=== PATIENT | female | born 1945 | race Caucasian/White ===

== ENCOUNTER 2018-03-15 00:35 | Outpatient (CLI) | payer OTHER, SELFPAY ==
--- NOTE | 2018-03-15 15:21 | DI.DEXA_ITS ---
SYMPTOM/DIAGNOSIS: SCREENING FOR OSTEOPOROSIS IN POSTMENOPAUSAL WOMAN, Z78.0 DEXA SCAN: Routine examination. Lateral spine film shows no compression deformities. Evaluation of the left hip shows a total T score of -2.3 and a Z score of -0.5. This is consistent with osteopenia and an increased fracture risk. Evaluation of the lumbar spine shows a total T score of -3.1 and a Z score of - 0.7. This is consistent with osteoporosis and a high fracture risk. IMPRESSION: Osteoporosis in the lumbar spine.
[2018-03-15 17:54] LABS: ALT 35 U/L (12-78); AST 17 U/L (15-37); Albumin 3.6 g/dL (3.4-5.0); Alkaline Phosphatase 87 U/L (46-116); Anion Gap 7.3 mmol/L (3-11); BUN 28 mg/dL (7-18); Bilirubin, Total 0.2 mg/dL (0.2-1.0); CO2 28.7 mmol/L (21.0-32.0); CREATININE 0.84 mg/dL (0.55-1.02); Calcium 8.8 mg/dL (8.5-10.1); Chloride 105 mmol/L (98-107); Glucose 97 mg/dL (70-100); Magnesium 2.1 mg/dL (1.8-2.4); Potassium 4.4 mmol/L (3.5-5.1); Sodium 141 mmol/L (136-145); Vitamin B12 609 pg/mL (193-986)
== END 2018-03-15 00:55 ==
PROVIDERS: PCP Nurse Practitioner Family; Visit Provider Nurse Practitioner Family
DX: M81.0 Age-related osteoporosis without current pathological fracture (principal); Z78.0 Asymptomatic menopausal state; M85.88 Other specified disorders of bone density and structure, other site; R03.0 Elevated blood-pressure reading, without diagnosis of hypertension; R05 Cough; M15.4 Erosive (osteo)arthritis; R00.2 Palpitations; J30.9 Allergic rhinitis, unspecified; M79.10 Myalgia, unspecified site; K21.9 Gastro-esophageal reflux disease without esophagitis; E78.5 Hyperlipidemia, unspecified
CPT/HCPCS: 36415; 77080; 80053; 82607; 83735

== ENCOUNTER 2018-06-14 14:28 | Outpatient (CLI) | payer OTHER, SELFPAY ==
--- NOTE | 2018-06-14 15:59 | DI.RAD_ITS ---
SYMPTOM/DIAGNOSIS: THUMB PAIN LT, M79.147 LEFT HAND: There are severe degenerative changes of the interphalangeal joints of the fingers as well as severe degenerative changes at the scaphoid and multangular joints. The bones appear osteoporotic. No fracture or soft tissue mass is seen. IMPRESSION: Degenerative changes.
== END 2018-06-14 14:48 ==
PROVIDERS: PCP Nurse Practitioner Family; Visit Provider Nurse Practitioner Family
DX: M79.645 Pain in left finger(s) (principal); M19.042 Primary osteoarthritis, left hand
CPT/HCPCS: 73130

== ENCOUNTER → 2018-06-21 09:13 | Outpatient (BNVA) | payer OTHER, SELFPAY | PROVIDERS: PCP Nurse Practitioner Family; Referring Provider Nurse Practitioner Family; Visit Provider Orthopaedic Surgery | DX: M65.312 Trigger thumb, left thumb (principal); R22.32 Localized swelling, mass and lump, left upper limb | CPT/HCPCS: 99202; 99214 ==

== ENCOUNTER 2018-07-02 09:37 | Day surgery (SDC) | payer OTHER, SELFPAY ==
[2018-07-02 10:24] VITALS: BP 140/64; PULSE 85; RESP 16; TEMP 36.1; O2SAT 97
[2018-07-02] MEDS: Lidocaine 2% Multi-Dose 50 ML VIAL (13:13)
--- NOTE | 2018-07-02 13:48 | W.PM.DSUDISC ---
Discharge Plan Disposition Patient Disposition: HOME Condition: Good Discharge Details Reason For Visit: R thumb surgery Attending Provider: Chapin Jacobs Primary Care Provider: Joie Jiang Home Meds and New Rx's Prescriptions: New hydrocodone-acetaminophen 5-325 mg tablet 1 tab PO Q6H PRN (Reason: pain) Qty: 7 RF: 0 Continued ibuprofen [Advil Liqui-Gel] 200 MG capsule 200 mg PO PRN RF: 0 hydrocortisone [Anusol-HC] 30 GM cream with perineal applicator 30 gm RC Q4H PRN Qty: 1 RF: 2 omeprazole 20 MG capsule,delayed release(DR/EC) 20 mg PO DAILY RF: 0 simvastatin 20 MG tablet 20 mg PO DAILY RF: 0 Symbicort 80-4.5 mcg/actuation Hfa Aerosol Inhaler 2 puff INHALATION BID RF: 0 Discharge Instructions Additional Instructions: Elevate R hand above heart level as much as possible for next 48 hours. Keep dressings dry for 72 hours. Remove dressings after 72 hours. May then shower or bathe and get incision wet. Leave incision uncovered when it is dry and sealed. Bend and straighten R thumb 10 times/hour when awake to prevent stiffness and swelling. Follow up in 's office in 2 weeks. Stand Alone Forms: Azul West (DSU) Referrals: Chapin Jacobs MD [ [facility] STAFF PHYSICIAN] - (f/u in 2 weeks) Activity:: Activity as Tolerated Remove Dressings/Wound Care:: 72 hours Shower/Bathe:: 72 hours Diet:: As Tolerated Discharge Orders Discharge Orders: Discharge Order (Routine); Ordered 07/02/18 Ordered By: Chapin Jacobs DS: Diagnosis Discharge Diagnosis (1) Lump on finger: Status: Acute (2) Trigger thumb, left thumb: Status: Acute
--- NOTE | 2018-07-04 18:43 | ROE_ITS ---
DATE OF PROCEDURE: July 02, 2018 PREOPERATIVE DIAGNOSIS: Soft tissue mass left thumb and trigger left thumb. POSTOPERATIVE DIAGNOSIS: Same. PROCEDURE: #1. Excision of soft tissue mass, left thumb. #2. Tendon sheath incision, left thumb, for trigger thumb. SURGEON: Chapin Jacobs M.D. ANESTHESIA: Local infiltration 1% Xylocaine solution and 0.5% Marcaine with epinephrine solution. INDICATIONS: This is a 73-year-old white female who has a painful hard mass located on the ulnar neela e of her thumb. It is located at the base of the proximal phalanx of the thumb. Whenever she is gri pping something with her left hand, it is quite tender and painful. X-rays suggest that this is a ca lcific deposit. In addition, she has painful intermittent triggering of her left thumb. I recommend ed excisional biopsy of the mass and, in the same operative session, a trigger thumb release. The ri sks and complications of the procedure were explained to the patient in detail preoperatively. PROCEDURE: The patient was taken to the Operating Room on 07/02/18. She was placed supine on the ope rating table and the left hand was prepped and draped free in the usual sterile fashion. I made an i ncision in line with the proximal flexion crease of the thumb, beginning at the dorsal edge of the fi rst web space, going dorsal to the palpable mass. I then swung the incision around to the palmar asp ect until I was radial to the flexor sheath. This was done after infiltrating the skin with 1% Xyloc shelley solution. I used blunt-tipped Littler scissors to mobilize the soft tissues around the mass and excised the mass. I inadvertently cut the mass with a scalpel and inside was chalky material consis tent with calcium. I used a rongeur to remove the entire calcific mass. I then developed the incision deep over the flexor sheath of the thumb. Digital nerves were mobilize d with the Littler scissors away from the flexor sheath. I then incised the entire length of the pro ximal abhishek in the midline. The thumb flexor tendon was inspected and was uninjured. The wound was irrigated with saline solution. The wound margins were infiltrated with 0.5% Marcaine with epinephr ine solution and the skin edges were approximated with interrupted #4-0 nylon sutures. The wound was dressed with Xeroform gauze, sterile gauze 4x4s, and wrapped with a 2-inch Josefa bandage for a light compressive dressing. She was discharged to the Day Surgery Unit in good condition. The patient was discharged home from the Day Surgery Unit with instructions to bend and straighten he r left thumb 10 times an hour while awake to prevent stiffness and swelling. She is to keep her dres sings intact and dry for 72 hours. After 72 hours, she may remove her dressings, shower or bathe and get her incision wet. She may leave the incision uncovered when it is dry and sealed. She is given a prescription for breakthrough pain of hydrocodone/APAP 5 mg/325 mg, 1 tablet every 6 hours if need ed for pain not relieved by Tylenol or ibuprofen. She will follow up in my office in two weeks.
== END 2018-07-02 14:10 | disposition home or self-care (01) ==
PROVIDERS: PCP Nurse Practitioner Family; Visit Provider Orthopaedic Surgery
PROC: (CPT 26160; principal; 2018-07-02 11:30)
DX: R22.32 Localized swelling, mass and lump, left upper limb (principal); M65.312 Trigger thumb, left thumb; L94.2 Calcinosis cutis
CPT/HCPCS: 26115; 26055

== ENCOUNTER → 2018-07-18 09:07 | Outpatient (BNVA) | payer OTHER, SELFPAY | PROVIDERS: PCP Nurse Practitioner Family; Referring Provider Nurse Practitioner Family; Visit Provider Orthopaedic Surgery | DX: Z47.89 Encounter for other orthopedic aftercare (principal); M65.312 Trigger thumb, left thumb ==

== ENCOUNTER 2018-12-10 13:21 | Outpatient (REF) | payer OTHER, SELFPAY ==
[2018-12-10 21:30] LABS: Abs Immature Grans 0.02 k/cumm (0.0-0.09); Absolute Basophil Count 0.02 k/cumm (0.0-0.2); Absolute Eosinophil Count 0.23 k/cumm (0.0-0.7); Absolute Lymphocyte Count 1.85 k/cumm (1.2-3.4); Absolute Monocyte Count 0.66 k/cumm (0.11-0.7); Absolute Neutrophil Count 4.22 k/cumm (1.2-6.7); Basophils % 0.3; Eosinophils % 3.3; HCT 43.2 % (36.0-46.0); HGB 14.2 g/dL (12.0-15.5); Immature Grans % 0.3; Lymphocytes % 26.4; Mean Corp. HGB Concentration 32.9 g/dL (32.0-36.0); Mean Corpuscular Hemoglobin 29.6 pg (27.0-33.0); Mean Corpuscular Volume 90.2 fL (80-95); Mean Platelet Volume 9.9 fL (8.0-11.0); Monocytes % 9.4; Neutrophils % 60.3; Platelet Count 430 x1000/uL (130-400); RBC 4.79 m/cumm (4.00-5.20); RBC Distribution Width 13.4 % (11.7-14.6)
[2018-12-10 22:04] LABS: ALT 41 U/L (12-78); AST 24 U/L (15-37); Albumin 3.9 g/dL (3.4-5.0); Alkaline Phosphatase 91 U/L (46-116); Anion Gap 12.6 mmol/L (3-11); BUN 25 mg/dL (7-18); Bilirubin, Total 0.3 mg/dL (0.2-1.0); CO2 26.4 mmol/L (21.0-32.0); CREATININE 0.79 mg/dL (0.55-1.02); Calcium 9.3 mg/dL (8.5-10.1); Chloride 104 mmol/L (98-107); Glucose 87 mg/dL (70-100); Magnesium 2.4 mg/dL (1.8-2.4); Potassium 4.1 mmol/L (3.5-5.1); Sodium 143 mmol/L (136-145); Total Protein 7.3 g/dL (6.4-8.2)
== END 2018-12-10 13:41 ==
LOC: NCHCN 13:21
PROVIDERS: PCP Nurse Practitioner Family; Visit Provider Specialist/Technologist Athletic Trainer
DX: R42 Dizziness and giddiness (principal)
CPT/HCPCS: 80053; 83735; 84439; 84443; 85025

== ENCOUNTER 2018-12-14 02:16 | Outpatient (CLI) | payer OTHER, SELFPAY ==
--- NOTE | 2018-12-14 14:00 | DI.US_ITS ---
SYMPTOMS/DIAGNOSIS: DIZZY SPELLS, R42 CAROTID ULTRASOUND: Routine examination was performed. Mild to moderate calcific plaque is seen on the right in the carotid bulb. No hemodynamically significant velocity elevations are seen on the right. The right vertebral artery is antegrade. On the left there is mild to moderate calcific plaque seen in the bulb. No hemodynamically significant velocity elevations are present on the left. The left vertebral artery is antegrade. IMPRESSION: No hemodynamically significant cervical carotid artery stenosis.
== END 2018-12-14 02:36 ==
PROVIDERS: PCP Nurse Practitioner Family; Visit Provider Specialist/Technologist Athletic Trainer
DX: R42 Dizziness and giddiness (principal)
CPT/HCPCS: 93880

== ENCOUNTER 2019-01-04 01:05 | Outpatient (CLI) | payer OTHER, SELFPAY ==
--- NOTE | 2019-01-04 13:56 | MERGE_ITS ---
*[facility]* *[facility]* [address] [place] [address] Date of study: 01/04/2019 Transthoracic Echocardiography M-mode, complete 2D, complete spectral Doppler, and color Doppler *STUDY CONCLUSIONS* Impressions: Low normal LVEF, aortic valve sclerosis with very mild aortic stenosis. Normal atrial size. Summary: 1. Left ventricle: The cavity size was normal. Wall thickness was at the upper limits of normal. Systolic function was at the lower limits of normal. The estimated ejection fraction was 50-55%. Wall motion was normal; there were no regional wall motion abnormalities. 2. Aortic valve: Mildly calcified annulus. Trileaflet; mildly thickened, mildly calcified leaflets. Transvalvular velocity was minimally increased. There was very mild stenosis. Valve area (VTI): 1.5cm^2. Valve area (Vmax): 1.6cm^2. Valve area (Vmean): 1.4cm^2. 3. Right ventricle: The cavity size was normal. Wall thickness was normal. Systolic function was normal. 4. Pulmonic valve: Peak gradient (S): 4.4mm Hg. *PATIENT PRESENTATION* Height: 152.4cm (60in ) S/D Pressure: 147 / 83 Weight: 63.5kg (139.7lb ) BSA: 1.66m^2 Test start time: 02:00 PM. Test stop time: 03:00 PM. PERFORMING Unknown PERFORMING [facility] CONSULTING Turner Burleson ORDERING Turner Burlesno REFERRING Turner Burleson PERSONAL CAREGIVER Eulalia Hernandez *PROCEDURE DATA* Procedure information: This study was interpreted by [facility]. Pertinent images and digital data are archived for permanent storage and are available for subsequent review. No prior study was available for comparison. Study status: Routine. Transthoracic echocardiography. M-mode, complete 2D, complete spectral Doppler, and color Doppler. A Transthoracic Echocardiogram was performed. Scanning was performed from the parasternal, apical, subcostal, and suprasternal notch acoustic windows. Images were obtained using an [employer]Med 2000 cardiac ultrasound machine. Image quality was adequate. Study completion: The patient tolerated the procedure well. History: PMH: Murmur, Left atrial enlargement, New onset dizziness, lightheaded. *CARDIAC ANATOMY* Left ventricle: The cavity size was normal. Wall thickness was at the upper limits of normal. Systolic function was at the lower limits of normal. The estimated ejection fraction was 50-55%. Wall motion was normal; there were no regional wall motion abnormalities. Aortic valve: Mildly calcified annulus. Trileaflet; mildly thickened, mildly calcified leaflets. Mobility was not restricted. Doppler: Transvalvular velocity was minimally increased. There was very mild stenosis. There was no significant regurgitation. VTI ratio of LVOT to aortic valve: 0.37. Valve area (VTI): 1.5cm^2. Indexed valve area (VTI): 0.9cm^2/m^2. Peak velocity ratio of LVOT to aortic valve: 0.4. Valve area (Vmax): 1.6cm^2. Indexed valve area (Vmax): 1cm^2/m^2. Mean velocity ratio of LVOT to aortic valve: 0.35. Valve area (Vmean): 1.4cm^2. Indexed valve area (Vmean): 0.8cm^2/m^2. Mean gradient (S): 7.9mm Hg. Peak gradient (S): 13.1mm Hg. Aorta: Aortic root: The aortic root was normal in size. Ascending aorta: The ascending aorta was normal in size. Mitral valve: Structurally normal valve. Mobility was not restricted. Doppler: Transvalvular velocity was within the normal range. There was no evidence for stenosis. There was no significant regurgitation. Valve area by pressure half-time: 2.7cm^2. Indexed valve area by pressure half-time: 1.6cm^2/m^2. Left atrium: The atrium was normal in size. Right ventricle: The cavity size was normal. Wall thickness was normal. Systolic function was normal. Pulmonic valve: Doppler: Transvalvular velocity was within the normal range. There was no evidence for stenosis. There was no significant regurgitation. Peak gradient (S): 4.4mm Hg. Tricuspid valve: Structurally normal valve. Doppler: Transvalvular velocity was within the normal range. There was no evidence for stenosis. There was no significant regurgitation. Pulmonary artery: Pulmonary systolic pressure was within the normal range. Right atrium: The atrium was normal in size. Pericardium: There was no pericardial effusion. Systemic veins: Inferior vena cava: The vessel was normal in size. Measurements Left ventricle Value Reference LV ID, ED, PLAX 3.8 cm 3.5 - 6.0 LV ID, ES, PLAX 2.8 cm 2.1 - 4.0 LV PW thickness, ED, PLAX 0.9 cm LV end-diastolic volume, 1-p A2C 36 ml LV ejection fraction, 1-p A2C 51 % LV end-diastolic volume, 1-p A4C 74 ml LV ejection fraction, 1-p A4C 49 % LV e', lateral 0.074 m/sec LV E/e', lateral 6 Ventricular septum Value Reference IVS thickness, ED, PLAX 1.0 cm LVOT Value Reference LVOT ID, S 2.2 cm LVOT ID, A-P 1.8 cm LVOT area 3.9 cm^2 LVOT peak velocity, S 0.72 m/sec LVOT mean velocity, S 0.47 m/sec LVOT VTI, S 13.8 cm LVOT peak gradient, S 2.1 mm Hg LVOT mean gradient, S 1 mm Hg Stroke volume (SV), LVOT DP 54 ml Stroke index (SV/bsa), LVOT DP 33 ml/m^2 Aortic valve Value Reference Aortic valve peak velocity, S 1.8 m/sec Aortic valve mean velocity, S 1.4 m/sec Aortic valve VTI, S 37.0 cm Aortic mean gradient, S 7.9 mm Hg Aortic peak gradient, S 13.1 mm Hg VTI ratio, LVOT/AV 0.37 Aortic valve area, VTI 1.5 cm^2 Velocity ratio, peak, LVOT/AV 0.4 Aortic valve area, peak velocity 1.6 cm^2 Velocity ratio, mean, LVOT/AV 0.35 Aortic valve area, mean velocity 1.4 cm^2 Aortic valve area/bsa, mean velocity 0.8 cm^2/m^2 Aorta Value Reference Aortic root ID, ED 2.3 cm Ascending aorta ID, A-P, S 2.7 cm Left atrium Value Reference LA ID, A-P, ES 3.5 cm LA ID/bsa, A-P 2.1 cm/m^2 <=2.2 LA volume, ES, 2-p 42 ml LA volume/bsa, ES, 2-p 25 ml/m^2 LA/aortic root ratio 1.54 Mitral valve Value Reference Mitral E-wave peak velocity 0.46 m/sec Mitral A-wave peak velocity 0.85 m/sec Mitral deceleration time (H) 284 ms 150 - 230 Mitral pressure half-time 82 ms Mitral E/A ratio, peak 0.53 Mitral valve area, PHT, DP 2.7 cm^2 Pulmonary arteries Value Reference PA pressure, S, DP 20 mm Hg <=30 Tricuspid valve Value Reference Tricuspid regurg peak velocity 1.9 m/sec Tricuspid peak RV-RA gradient 14.7 mm Hg Right atrium Value Reference RA area, ES, A4C (L) 7.6 cm^2 8.3 - 19.5 Systemic veins Value Reference Estimated CVP 10 mm Hg Right ventricle Value Reference RV pressure, S, DP 25 mm Hg <=30 Pulmonic valve Value Reference Pulmonic peak gradient, S 4.4 mm Hg Legend: (L) and (H) bekah values outside specified reference range. I have personally reviewed the images and have reviewed and edited the reported findings. Electronically signed by Harish García 01/05/2019 10:46
== END 2019-01-04 01:25 ==
PROVIDERS: PCP Nurse Practitioner Family; Visit Provider Specialist/Technologist Athletic Trainer
DX: R42 Dizziness and giddiness (principal); R01.1 Cardiac murmur, unspecified; I35.0 Nonrheumatic aortic (valve) stenosis; I51.7 Cardiomegaly
CPT/HCPCS: 93306

== ENCOUNTER 2019-03-05 16:20 | Outpatient (REF) | payer OTHER, SELFPAY ==
[2019-03-05 21:37] LABS: TSH (W/Ref FT4) 1.86 uIU/mL (0.36-3.74)
== END 2019-03-05 16:40 ==
LOC: NCHCN 16:20
PROVIDERS: PCP Nurse Practitioner Family; Visit Provider Specialist/Technologist Athletic Trainer
DX: E03.9 Hypothyroidism, unspecified (principal)
CPT/HCPCS: 84443

== ENCOUNTER → 2019-05-17 09:15 | Outpatient (BNVA) | payer OTHER, SELFPAY | PROVIDERS: PCP Nurse Practitioner Family; Referring Provider Nurse Practitioner Family; Visit Provider Surgery | DX: Z12.11 Encounter for screening for malignant neoplasm of colon; Z80.0 Family history of malignant neoplasm of digestive organs ==

== ENCOUNTER 2019-07-05 02:40 | Outpatient (CLI) | payer OTHER, SELFPAY ==
--- NOTE | 2019-07-05 | DI.MAMMO_ITS ---
EXAM: MAMMO SCREENING CLINICAL HISTORY: SCREENING Z12.31 TECHNIQUE: Mammograms were interpreted according to the usual protocol including computer analysis w [employer] CAD system, tomosynthesis and C-view imaging. COMPARISON: 2010 through 2017 FINDINGS: The breasts are composed of heterogeneously dense fibroglandular densities, Breast Density category C . No suspicious masses or suspicious microcalcifications are seen. No skin thickening or abnormal axillary lymph nodes are seen. There has been no significant change from prior exams. Vascular calcifications and scattered benign c alcifications are seen. IMPRESSION: BIRADS Category 1, negative mammogram. Yearly screening mammography is recommended. BREAST DENSITY: The mammogram demonstrates the patient's breast tissue is dense. Dense breast tissue is very common and is not abnormal but dense breast tissue can make it harder to find cancer on a ma mmogram. Also, dense breast tissue may increase breast cancer risk. This information about the result of the mammogram report was provided to the patient to raise their awareness. Use this report when y ou speak with the patient about their risks for breast cancer, which includes their family history. A t that time, you may recommend additional screening tests (Ultrasound or MRI) as they might be useful based on their risk. A negative radiographic report should not delay biopsy if a dominant or clinically suspicious mass is present. Up to ten percent of cancers are not identified on mammography. A negative report may reinforce clinical impression. Adenosis and dense breasts may obscure an underlying neoplasm. False positive reports average 6 to 10%.
== END 2019-07-05 03:00 ==
PROVIDERS: PCP Nurse Practitioner Family; Visit Provider Nurse Practitioner Family
DX: Z12.31 Encounter for screening mammogram for malignant neoplasm of breast (principal)
CPT/HCPCS: 77063; 77067

== ENCOUNTER 2019-12-12 15:59 | Outpatient (REF) | payer OTHER, SELFPAY ==
[2019-12-12 21:03] LABS: Abs Immature Grans 0.02 10^3/uL (0.0-0.06); Absolute Basophil Count 0.04 10^3/uL (0.0-0.2); Absolute Eosinophil Count 0.38 10^3/uL (0.0-0.7); Absolute Lymphocyte Count 2.36 10^3/uL (1.2-3.4); Absolute Monocyte Count 0.66 10^3/uL (0.1-0.8); Absolute Neutrophil Count 4.09 10^3/uL (1.2-6.7); Basophils % 0.5; HCT 43.2 % (36.0-46.0); HGB 13.9 g/dL (11.2-15.7); Immature Grans % 0.3; Lymphocytes % 31.3; MCH 29.3 pg (27.0-33.0); MCHC 32.2 % (32.0-36.0); MCV 90.9 fL (80-95); MPV 9.8 fL (8.0-11.0); Monocytes % 8.7; Neutrophils % 54.2; Platelet Count 508 10^3/uL (130-400); RBC 4.75 10^6/uL (3.93-5.22); RDW 13.2 % (11.7-14.6); RDW-SD 44.5 fL; WBC 7.55 10^3/uL (4.4-10.8)
[2019-12-12 21:43] LABS: ALT 35 U/L (14-59); AST 19 U/L (15-37); Alkaline Phosphatase 75 U/L (46-116); Anion Gap 9.9 mmol/L (3-11); BUN 25 mg/dL (7-18); Bilirubin, Total 0.2 mg/dL (0.2-1.0); CO2 26.1 mmol/L (21.0-32.0); CREATININE 0.81 mg/dL (0.55-1.02); Calcium 9.3 mg/dL (8.5-10.1); Chloride 106 mmol/L (98-107); Glucose 81 mg/dL (74-106); Magnesium 2.3 mg/dL (1.8-2.4); Potassium 4.7 mmol/L (3.5-5.1); Sodium 142 mmol/L (136-145); TSH (W/Ref FT4) 1.47 uIU/mL (0.36-3.74); Vitamin B12 554 pg/mL (193-986)
== END 2019-12-12 16:19 ==
LOC: NCHCN 15:59
PROVIDERS: PCP Nurse Practitioner Family; Visit Provider Nurse Practitioner Family
DX: E03.9 Hypothyroidism, unspecified (principal); R01.1 Cardiac murmur, unspecified; M79.18 Myalgia, other site
CPT/HCPCS: 80053; 82607; 83735; 84443; 85025

== ENCOUNTER 2020-01-15 21:20 | Outpatient (REF) | payer OTHER, SELFPAY ==
[2020-01-18 05:49] LABS: Patient Race White; SARS-CoV-2 RNA Undetected (Undetected); SARS-CoV-2 Specimen Source Nasal
== END 2020-01-15 21:40 ==
LOC: NCHCN 21:20
PROVIDERS: PCP Nurse Practitioner Family; Visit Provider Nurse Practitioner Family
DX: Z20.828 Contact with and (suspected) exposure to other viral communicable diseases (principal)
CPT/HCPCS: U0003

== ENCOUNTER 2020-02-11 04:17 | Outpatient (CLI) | payer OTHER, SELFPAY ==
[2020-02-11 08:08] LABS: Abs Immature Grans 0.01 10^3/uL (0.0-0.06); Absolute Basophil Count 0.04 10^3/uL (0.0-0.2); Absolute Eosinophil Count 0.31 10^3/uL (0.0-0.7); Absolute Lymphocyte Count 1.98 10^3/uL (1.2-3.4); Absolute Monocyte Count 0.59 10^3/uL (0.1-0.8); Absolute Neutrophil Count 3.24 10^3/uL (1.2-6.7); Basophils % 0.6; HCT 43.3 % (36.0-46.0); Immature Grans % 0.2; Lymphocytes % 32.1; MCH 29.4 pg (27.0-33.0); MCHC 32.3 % (32.0-36.0); MPV 9.2 fL (8.0-11.0); Monocytes % 9.6; Neutrophils % 52.5; Nucleated RBC 0 %; Platelet Count 409 10^3/uL (130-400); RBC 4.76 10^6/uL (3.93-5.22); RDW-SD 45.6 fL; WBC 6.17 10^3/uL (4.4-10.8)
== END 2020-02-11 04:37 ==
PROVIDERS: PCP Nurse Practitioner Family; Visit Provider Internal Medicine
DX: D47.3 Essential (hemorrhagic) thrombocythemia (principal)
CPT/HCPCS: 36415; 85025

== ENCOUNTER 2020-03-06 23:29 | Outpatient (REF) | payer OTHER, SELFPAY ==
[2020-03-06 21:16] LABS: HCT 41.3 % (36.0-46.0); HGB 13.6 g/dL (11.2-15.7); MCH 30.3 pg (27.0-33.0); MCHC 32.9 % (32.0-36.0); MPV 9.6 fL (8.0-11.0); Platelet Count 424 10^3/uL (130-400); RBC 4.49 10^6/uL (3.93-5.22); RDW 15.9 % (11.7-14.6); WBC 5.33 10^3/uL (4.4-10.8)
== END 2020-03-06 23:49 ==
LOC: NCHCN 23:29
PROVIDERS: PCP Nurse Practitioner Family; Visit Provider Nurse Practitioner Family
DX: D47.3 Essential (hemorrhagic) thrombocythemia (principal)
CPT/HCPCS: 85027

== ENCOUNTER 2020-06-03 19:41 | Outpatient (REF) | payer OTHER, SELFPAY ==
[2020-06-03 22:20] LABS: Abs Immature Grans 0.02 10^3/uL (0.0-0.06); Absolute Basophil Count 0.04 10^3/uL (0.0-0.2); Absolute Eosinophil Count 0.15 10^3/uL (0.0-0.7); Absolute Lymphocyte Count 1.92 10^3/uL (1.2-3.4); Absolute Monocyte Count 0.43 10^3/uL (0.1-0.8); Absolute Neutrophil Count 3.24 10^3/uL (1.2-6.7); Basophils % 0.7; Eosinophils % 2.6; HCT 41.6 % (36.0-46.0); HGB 13.6 g/dL (11.2-15.7); Immature Grans % 0.3; Lymphocytes % 33.1; MCH 33.9 pg (27.0-33.0); MCHC 32.7 % (32.0-36.0); MCV 103.7 fL (80-95); MPV 9.7 fL (8.0-11.0); Monocytes % 7.4; Neutrophils % 55.9; Nucleated RBC 0 %; Platelet Count 336 10^3/uL (130-400); RBC 4.01 10^6/uL (3.93-5.22); RDW 13.7 % (11.7-14.6); RDW-SD 52.7 fL
[2020-06-03 22:24] LABS: ALT 38 U/L (14-59); AST 26 U/L (15-37); Albumin 3.7 g/dL (3.4-5.0); Alkaline Phosphatase 81 U/L (46-116); Anion Gap 9.5 mmol/L (3-11); BUN 24 mg/dL (7-18); Bilirubin, Total 0.4 mg/dL (0.2-1.0); CO2 25.5 mmol/L (21.0-32.0); CREATININE 0.95 mg/dL (0.55-1.02); Calcium 8.4 mg/dL (8.5-10.1); Chloride 104 mmol/L (98-107); Estimated GFR 57.04 (mL/min/1.73m2); Glucose 120 mg/dL (74-106); Potassium 3.9 mmol/L (3.5-5.1); Sodium 139 mmol/L (136-145)
== END 2020-06-03 20:01 ==
LOC: NCHCN 19:41
PROVIDERS: Internal Medicine; PCP Nurse Practitioner Family; Visit Provider Nurse Practitioner Family
DX: D47.3 Essential (hemorrhagic) thrombocythemia (principal); L82.0 Inflamed seborrheic keratosis
CPT/HCPCS: 80053; 85025

== ENCOUNTER 2020-07-03 17:44 | Outpatient (REF) | payer OTHER, SELFPAY ==
[2020-07-03 21:58] LABS: ALT 43 U/L (14-59); AST 21 U/L (15-37); Albumin 4.2 g/dL (3.4-5.0); Alkaline Phosphatase 87 U/L (46-116); Anion Gap 8.2 mmol/L (3-11); BUN 27 mg/dL (7-18); Bilirubin, Total 0.2 mg/dL (0.2-1.0); CO2 28.8 mmol/L (21.0-32.0); CREATININE 0.9 mg/dL (0.55-1.02); Calcium 9.2 mg/dL (8.5-10.1); Chloride 104 mmol/L (98-107); Glucose 85 mg/dL (74-106); Magnesium 2.6 mg/dL (1.8-2.4); Potassium 4.5 mmol/L (3.5-5.1); Sodium 141 mmol/L (136-145); Total Protein 7.7 g/dL (6.4-8.2); Vitamin B12 562 pg/mL (193-986)
[2020-07-06 06:26] LABS: Vitamin D 25 Total 15.5 ng/ml (30-100)
== END 2020-07-03 17:45 | disposition home or self-care (01) ==
LOC: NCHCN 17:44
PROVIDERS: PCP Nurse Practitioner Family; Visit Provider Nurse Practitioner Family
DX: R00.1 Bradycardia, unspecified (principal); D47.3 Essential (hemorrhagic) thrombocythemia; M81.0 Age-related osteoporosis without current pathological fracture; K21.9 Gastro-esophageal reflux disease without esophagitis
CPT/HCPCS: 80053; 82306; 82607; 83735; 84443

== ENCOUNTER 2020-07-31 04:59 | Outpatient (CLI) | payer OTHER, SELFPAY ==
--- NOTE | 2020-07-31 09:25 | DI.US_ITS ---
APPROVED REPORT EXAM: Comprehensive 2D, Doppler, and color-flow Echocardiogram Patient Location: Out-Patient Bowl Topper: Eulalia Hernandez RDCS (AE) Indications: Premature atrial contractions, palpitations, murmur Other Information Study Quality: Adequate Conclusion Normal left ventricular wall thickness and chamber size. Estimated ejection fraction is 55%. There is no segmental wall motion abnormalities Normal right ventricular size and systolic function Both atria are normal in size Trileaflet mildly sclerotic aortic valve without stenosis or regurgitation Mild mitral annular calcification, mild mitral regurgitation Normal tricuspid valve, trace regurgitation, normal right ventricular systolic pressure Normal pulmonic valve with trace regurgitation Wall motion Left Ventricle The left ventricle is normal size. The left ventricular systolic function is normal. The left ventric ular ejection fraction is within the normal range. There is normal left ventricular wall thickness. T here is normal LV segmental wall motion.. There is no ventricular septal defect visualized. LVEF is 5 5%. Right Ventricle The right ventricle is normal size. The right ventricular systolic function is normal. The RVSP is 16 .1mmHg. Atria The left atrium size is normal. The right atrium size is normal. The interatrial septum is intact wit h no evidence for an atrial septal defect. Aortic Valve The Aortic valve is sclerotic. Aortic valve is trileaflet. There is no aortic valvular stenosis. No a ortic regurgitation is present. Mitral Valve Mild mitral annular calcification. No evidence of mitral valve stenosis. Mild mitral regurgitation. Tricuspid Valve The tricuspid valve is normal in structure. There is no tricuspid valve stenosis. Trace tricuspid reg urgitation. Pulmonic Valve The pulmonary valve is normal in structure. There is no pulmonic valvular stenosis. Trace pulmonic re gurgitation. Great Vessels The aortic root is normal in size. The ascending aorta is normal in size. Aortic arch is normal in ca liber. IVC is normal in size and collapses >50% with inspiration. Pericardium There is no pericardial effusion. 2D Dimensions IVSD d PLAX 0.88 cm F: 0.6-1.0 LV Vol A2C d MOD 67.8 mL LVPW d PLAX 0.94 cm F: 0.6 - 1.0 LV Vol A4C d MOD 95.8 mL LVID d PLAX 3.93 cm F: 3.8 - 5.2 LA vol/ BSA A2C s A-L 20.1 mL/m2 LVDs 2.85 cm F: 2.2 - 3.5 LA vol/ BSA A4C s A-L 30.6 mL/m2 Ao Root d 2.61 cm F: 2.7 - 3.3 LA Vol/ BSA Biplane s A-L 25.1 mL/m2 RA Area A4C 7.61 cm2 LA Area A4C s MOD 17.27 cm2 RA Vol/ BSA A4C s A-L 10.1 mL/m2 LA Area A2C s MOD 13.81 cm2 Ao Asc Diam d 2.74 cm F: 2.3 - 3.1 LV EF A4C MOD 55.8 % LV EF Teichholz 53.8 % LV EF A2C MOD 49.7 % LVEF (Lua's) 50.41 % F: 54 - 74 LV EF Biplane MOD 50.4 % LV Volume 66.18 mL F: 46 - 106 SV 41.01 mL LV Volume Index 41.62 mL/m2 F: 29 - 61 SV Index 25.72 mL/m2 LV Vol Biplane MOD 81.3 mL FS 27.30 % M-Mode TAPSE 1.64 cm (M/F) >1.7 LV Diastology MV E' medial 0.065 (>0.07 m/s) E/A Ratio 0.6 LV E/e MED 10.25 (<14) MV E Vmax 0.66 (0.4-1.3 m/s) MV E' lateral 0.076 (>0.1 m/s) MV A Vmax 1.05 (0.4-1.3 m/s) LV E/e LAT 8.75 (<14) MV E/A Ratio 0.63 MV E/E' medial 10.26 MV E/E' lateral 8.77 Aortic Valve LVOT Area 2.78 cm2 AoV Area Vmax 2.25 cm2 LVOT Vmax 1.37 m/s AoV Area/ BSA (Vmax) 1.41 cm2/m2 LVOT Mean Rahul. 1.02 m/s MILI Mean Rahul. 2.23 cm2 LVOT Peak Grad 7.5 mmHg MILI Mean Rahul. Index 1.40 cm2/m2 LVOT Mean Grad 4.7 mmHg LVOT VTI 0.267 m LVOT Diam s 1.85 cm AoV Vmax 1.69 m/s Velocity Ratio 0.81 AoV Mean Rahul. 1.28 m/s AoV Peak Grad 11.5 mmHg LVOT SV 74.44 mL AoV Mean Grad 7.1 mmHg AoV VTI 0.324 m AoV Area VTI 2.30 cm2 AoV Area/ BSA (VTI) 1.44 cm/m2 Mitral Valve MV DT 213 (160-240 msec) MV PHT 62 msec MV Area PHT 3.56 cm2 MV VTI 0.355 m MV VTI Annulus 0.348 m MV Area VTI 2.06 (4.0-6.0 cm2) Pulmonary Valve PV Vmax 0.90 (0.5-1.5 m/s) RVOT Peak Gr. 1.32 mmHg PV Peak Grad 3.3 mmHg RVOT Mean Gr. 0.90 mmHg PV Mean Grad 1.9 mmHg RVOT VTI 0.114 m PV VTI 0.196 m RVOT Vmax 0.57 m/s Tricuspid Valve TR Peak Grad 13.0 mmHg TR Vmax 1.81 m/s RA Pressure 3.00 mmHg RVSP (TR) 16.1 mmHg
== END 2020-07-31 05:19 ==
PROVIDERS: PCP Nurse Practitioner Family; Visit Provider Nurse Practitioner Family
DX: I49.1 Atrial premature depolarization (principal); R00.2 Palpitations; R01.1 Cardiac murmur, unspecified; I34.0 Nonrheumatic mitral (valve) insufficiency
CPT/HCPCS: 93306

== ENCOUNTER 2020-09-03 11:45 | Outpatient (REF) | payer OTHER, SELFPAY ==
[2020-09-03 19:28] LABS: Abs Immature Grans 0.01 10^3/uL (0.0-0.06); Absolute Basophil Count 0.04 10^3/uL (0.0-0.2); Absolute Eosinophil Count 0.19 10^3/uL (0.0-0.7); Absolute Lymphocyte Count 2.08 10^3/uL (1.2-3.4); Absolute Monocyte Count 0.44 10^3/uL (0.1-0.8); Absolute Neutrophil Count 4.02 10^3/uL (1.2-6.7); Basophils % 0.6; Eosinophils % 2.8; HCT 42.8 % (36.0-46.0); HGB 13.8 g/dL (11.2-15.7); Immature Grans % 0.1; Lymphocytes % 30.7; MCH 34.5 pg (27.0-33.0); MCHC 32.2 % (32.0-36.0); MPV 9.7 fL (8.0-11.0); Monocytes % 6.5; Neutrophils % 59.3; Nucleated RBC 0 %; Platelet Count 389 10^3/uL (130-400); RDW 12.4 % (11.7-14.6); RDW-SD 49.5 fL; WBC 6.78 10^3/uL (4.4-10.8)
[2020-09-03 20:00] LABS: ALT 35 U/L (14-59); AST 22 U/L (15-37); Alkaline Phosphatase 87 U/L (46-116); Anion Gap 5.9 mmol/L (3-11); BUN 25 mg/dL (7-18); Bilirubin, Total 0.3 mg/dL (0.2-1.0); CO2 29.1 mmol/L (21.0-32.0); CREATININE 0.9 mg/dL (0.55-1.02); Calcium 8.9 mg/dL (8.5-10.1); Chloride 107 mmol/L (98-107); Diff Comment RBC Morph Reviewed; Glucose 113 mg/dL (74-106); Macrocytosis 1+; Potassium 4.8 mmol/L (3.5-5.1); Sodium 142 mmol/L (136-145); Total Protein 7.2 g/dL (6.4-8.2)
[2020-09-04 13:05] LABS: COVID-19 RT-PCR UVMMC Result Negative (Negative)
== END 2020-09-03 11:46 | disposition home or self-care (01) ==
LOC: NCHCN 11:45
PROVIDERS: PCP Nurse Practitioner Family; Visit Provider Nurse Practitioner Family
DX: D47.3 Essential (hemorrhagic) thrombocythemia (principal); Z15.89 Genetic susceptibility to other disease; Z20.822 Contact with and (suspected) exposure to COVID-19
CPT/HCPCS: 80053; U0003; 85025

== ENCOUNTER → 2020-12-18 10:32 | Outpatient (BNVA) | payer OTHER, SELFPAY | PROVIDERS: PCP Nurse Practitioner Family; Referring Provider Nurse Practitioner Family; Visit Provider Student in an Organized Health Care Education/Training Program | DX: M65.342 Trigger finger, left ring finger (principal) | CPT/HCPCS: 99213 ==

== ENCOUNTER 2021-01-15 03:26 | Outpatient (CLI) | payer OTHER, SELFPAY ==
[2021-01-15 11:25] LABS: Source Nasal/Nares
[2021-01-15 13:49] LABS: COVID-19 PCR Negative (Negative)
== END 2021-01-15 03:27 | disposition home or self-care (01) ==
LOC: LBO 03:26
PROVIDERS: PCP Nurse Practitioner Family; Visit Provider Student in an Organized Health Care Education/Training Program
DX: Z20.822 Contact with and (suspected) exposure to COVID-19 (principal); Z01.818 Encounter for other preprocedural examination
CPT/HCPCS: 87635

== ENCOUNTER 2021-01-19 06:09 | Day surgery (SDC) | payer OTHER, SELFPAY ==
[2021-01-19 06:35] VITALS: BP 137/75; PULSE 84; RESP 16; TEMP 36.4; O2SAT 97
[2021-01-19] MEDS: Sodium Bicarbonate 50 MEQ/50 ML VIAL (07:25)
--- NOTE | 2021-01-19 07:26 | W.PM.DSUDISC ---
Discharge Plan Disposition Patient Disposition: HOME Condition: Good Discharge Details Reason For Visit: LRF trigger release Attending Provider: Martell Gaitan Primary Care Provider: Joie Jiang Home Meds and New Rx's Prescriptions: New acetaminophen 500 mg capsule 1,000 mg PO Q8H PRN PRNQty: 90 RF: 0 ibuprofen 600 mg tablet 600 mg PO TID PRN (Reason: pain) Qty: 30 RF: 0 Continued hydroxyurea 500 mg capsule 500 mg PO DAILY RF: 0 bisacodyl [Dulcolax (bisacodyl)] 5 mg tablet,delayed release (DR/EC) 5 mg PO ONCE Qty: 4 RF: 0 polyethylene glycol 3350 17 gram powder in packet 255 g PO DAILY Qty: 15 RF: 0 hydrocortisone [Anusol-HC] 30 GM cream with perineal applicator 30 gm RC Q4H PRN Qty: 1 RF: 2 levothyroxine 50 mcg capsule 50 mcg PO DAILY RF: 0 aspirin [Adult Aspirin Regimen] 81 mg tablet,delayed release (DR/EC) 81 mg PO DAILY RF: 0 simvastatin 20 MG tablet 20 mg PO DAILY RF: 0 Discontinued ibuprofen [Advil Liqui-Gel] 200 MG capsule 200 mg PO PRN RF: 0 Discharge Instructions Stand Alone Forms: Arnie Millard Finger Release Referrals: Martell Gaitan MD [ [facility] STAFF PHYSICIAN] - Activity:: Activity as Tolerated Remove Dressings/Wound Care:: 48 hours Shower/Bathe:: 48 hours Diet:: As Tolerated Discharge Orders Discharge Orders: Discharge Order (Routine); Ordered 01/19/21 Ordered By: Freddy Fernandez DS: Diagnosis Discharge Diagnosis (1) Trigger finger, left ring finger: Status: Acute
[2021-01-19 07:47] VITALS: BP 149/84; PULSE 82; RESP 16; TEMP 36.3; O2SAT 97
--- NOTE | 2021-01-20 05:58 | W.PM.OP ---
Date of service: 01/19/21 Time of Service: 07:42 Operative Note Operative Note DATE OF PROCEDURE: 01/20/21 PRE-OP DIAGNOSIS: Left Ring Finger Trigger Finger POST-OP DIAGNOSIS: same PROCEDURE: Trigger Finger Release - Left Ring Finger SURGEON: Martell Gaitan ANESTHESIA TYPE: Local By Surgeon Refer to Anesthesia Record ESTIMATED BLOOD LOSS: 0 PATHOLOGY: none sent TOURNIQUET TIME: 0 COMPLICATIONS: None Patient was transported to: same day Patient's condition: stable Indications: I have seen Alana in clinic for symptoms of a trigger finger. The catching, clicking, locking, and pain limited function. The diagnosis of trigger finger was evident. The symptoms had not responded to conservative measures. I discussed trigger finger release with the patient. I reviewed the risks of the procedure to include, but not limited to, bleeding, infection, pain, stiffness, incomplete release, damage to nerves or vessels, continued catching, recurrence. Despite these risks, the patient elected to proceed. Findings: There was a tightened A1 abhishek which was released. The flexor tendons were inspected and the patient was able to move the finger without any catching, clicking, or locking. Procedure Description: Alana was greeted in the preoperative holding area where the correct side was identified and marked. The consent was reviewed with the patient and signed. All questions were answered. She was taken back to the operating room. The patient was placed into the supine position on the operating room table with the left arm on an arm board. All bony prominences were well padded. No prophylactic antibiotics were administered since this was a clean, elective hand surgical case. The left arm was then prepped with Chloraprep and draped in a standard fashion with stockinette and extremity drape. A timeout to confirm correct identity, side and site, procedure, allergies, anesthesia, and medical concerns was performed. The surgical site was marked as a longitudinal incision directly over the A1 abhishek of the involved digit. This was confirmed with palpation during finger flexion. This area, overlying the metacarpal head, was then anesthetized with 1% Lidocaine. The patient tolerated this well and once the anesthetic had setup, the procedure began. A longitudinal incision was made through skin only, approximately 1cm. The deep tissues were dissected bluntly. Once the A1 abhishek and flexor tendons were identified the soft tissue including neurovascular structures were retracted medially and laterally. There were no crossing structures over the A1 abhishek. The proximal edge of the abhishek was identified and the abhishek was incised with tenotomy scissors. There was a release of the tendons once this was fully released. The tendons were then removed from the wound and inspected. The tendons were then returned and the patient was asked to move the finger into deep flexion and back to extension. There was no recreation of the pre-operative symptoms. The hand was then once more inspected for any A0 abhishek or area of possible constriction. The wound was then irrigated and the skin was closed with a 4-0 Nylon. This was dressed with gauze and a Conform dressing. The patient tolerated the procedure well and was returned to the Same Day Surgery area in a stable condition suffering no known complication.
== END 2021-01-19 06:10 | disposition home or self-care (01) ==
PROVIDERS: PCP Nurse Practitioner Family; Visit Provider Student in an Organized Health Care Education/Training Program
PROC: (CPT 26055; principal; 2021-01-19 07:30)
DX: M65.342 Trigger finger, left ring finger (principal)
CPT/HCPCS: 26055

== ENCOUNTER → 2021-01-28 11:13 | Outpatient (BNVA) | payer OTHER, SELFPAY | PROVIDERS: PCP Nurse Practitioner Family; Referring Provider Nurse Practitioner Family | DX: Z47.89 Encounter for other orthopedic aftercare (principal) ==

== ENCOUNTER → 2021-02-26 10:06 | Outpatient (BNVA) | payer MEDICARE, SELFPAY | PROVIDERS: PCP Nurse Practitioner Family; Referring Provider Nurse Practitioner Family; Visit Provider Student in an Organized Health Care Education/Training Program | DX: Z47.89 Encounter for other orthopedic aftercare (principal) ==

== ENCOUNTER 2021-03-08 12:13 | Outpatient (REF) | payer MEDICARE, SELFPAY ==
[2021-03-08 22:07] LABS: Abs Immature Grans 0.02 10^3/uL (0.0-0.06); Absolute Basophil Count 0.03 10^3/uL (0.0-0.2); Absolute Eosinophil Count 0.19 10^3/uL (0.0-0.7); Absolute Lymphocyte Count 1.98 10^3/uL (1.2-3.4); Absolute Monocyte Count 0.45 10^3/uL (0.1-0.8); Absolute Neutrophil Count 4.07 10^3/uL (1.2-6.7); Basophils % 0.4; Eosinophils % 2.8; HCT 38.7 % (36.0-46.0); HGB 12.8 g/dL (11.2-15.7); Immature Grans % 0.3; Lymphocytes % 29.4; MCH 35.2 pg (27.0-33.0); MCHC 33.1 % (32.0-36.0); MCV 106.3 fL (80-95); MPV 9.9 fL (8.0-11.0); Monocytes % 6.7; Neutrophils % 60.4; Nucleated RBC 0 %; Platelet Count 363 10^3/uL (130-400); RBC 3.64 10^6/uL (3.93-5.22); RDW 12.4 % (11.7-14.6); RDW-SD 48.6 fL; WBC 6.74 10^3/uL (4.4-10.8)
[2021-03-08 22:27] LABS: ALT 28 U/L (14-59); AST 17 U/L (15-37); Albumin 4.1 g/dL (3.4-5.0); Alkaline Phosphatase 76 U/L (46-116); Anion Gap 10.9 mmol/L (3-11); BUN 27 mg/dL (7-18); Bilirubin, Total 0.4 mg/dL (0.2-1.0); CO2 26.1 mmol/L (21.0-32.0); CREATININE 0.9 mg/dL (0.55-1.02); Calcium 8.9 mg/dL (8.5-10.1); Chloride 106 mmol/L (98-107); Glucose 77 mg/dL (74-106); Potassium 4.6 mmol/L (3.5-5.1); Sodium 143 mmol/L (136-145); Total Protein 7.1 g/dL (6.4-8.2)
== END 2021-03-08 12:14 | disposition home or self-care (01) ==
LOC: NCHCN 12:13
PROVIDERS: PCP Nurse Practitioner Family; Visit Provider Nurse Practitioner Family
DX: D47.3 Essential (hemorrhagic) thrombocythemia (principal); L82.0 Inflamed seborrheic keratosis
CPT/HCPCS: 80053; 85025

== ENCOUNTER 2021-07-16 00:19 | Outpatient (CLI) | payer MEDICARE, SELFPAY ==
--- NOTE | 2021-07-16 15:05 | DI.DEXA_ITS ---
Exam(s) XR DEXA BONE DENSITY W/WO RADHA EXAM: XR DEXA BONE DENSITY W/WO RADHA CLINICAL HISTORY: OSTEOPOROSIS, M81.0 TECHNIQUE: COMPARISON: Comparison examination is 03/15/2018. FINDINGS: Lateral Spine Image: Unremarkable. No compression deformities identified. Left hip: Total T-Score: -2.4. This compares to -2.3 on the prior examination. Total Z-Score: -0.5 T- and Z-scores: Findings are consistent with osteopenia. There is osteoporosis in the femoral neck with a T-score of -2.9. Lumbar Spine: Total T-Score: -3.1. This is unchanged compared to the prior examination. Total Z-Score: -0.5. T- and Z-scores: Findings consistent with osteoporosis. IMPRESSION: Osteoporosis in the lumbar spine and left hip.
== END 2021-07-16 00:39 ==
PROVIDERS: PCP Nurse Practitioner Family; Visit Provider Nurse Practitioner Family
DX: M81.0 Age-related osteoporosis without current pathological fracture (principal); Z13.820 Encounter for screening for osteoporosis
CPT/HCPCS: 77080

== ENCOUNTER 2021-09-28 16:47 | Outpatient (REF) | payer MEDICARE, SELFPAY ==
[2021-09-28 21:39] LABS: Abs Immature Grans 0.01 10^3/uL (0.0-0.06); Absolute Basophil Count 0.03 10^3/uL (0.0-0.2); Absolute Eosinophil Count 0.24 10^3/uL (0.0-0.7); Absolute Lymphocyte Count 2.06 10^3/uL (1.2-3.4); Absolute Monocyte Count 0.46 10^3/uL (0.1-0.8); Absolute Neutrophil Count 3.16 10^3/uL (1.2-6.7); Basophils % 0.5; HCT 39.4 % (36.0-46.0); HGB 12.8 g/dL (11.2-15.7); Immature Grans % 0.2; Lymphocytes % 34.6; MCH 33.9 pg (27.0-33.0); MCHC 32.5 % (32.0-36.0); MCV 104 fL (80-95); MPV 9.5 fL (8.0-11.0); Monocytes % 7.7; Platelet Count 399 10^3/uL (130-400); RBC 3.78 10^6/uL (3.93-5.22); RDW 12.9 % (11.7-14.6); RDW-SD 49.4 fL; WBC 5.96 10^3/uL (4.4-10.8)
[2021-09-28 22:28] LABS: ALT 33 U/L (14-59); AST 22 U/L (15-37); Albumin 3.7 g/dL (3.4-5.0); Alkaline Phosphatase 80 U/L (46-116); Anion Gap 4.5 mmol/L (3-11); BUN 34 mg/dL (7-18); Bilirubin, Total 0.2 mg/dL (0.2-1.0); CO2 26.5 mmol/L (21.0-32.0); CREATININE 0.9 mg/dL (0.55-1.02); Calcium 8.5 mg/dL (8.5-10.1); Chloride 106 mmol/L (98-107); Glucose 92 mg/dL (74-106); Potassium 4.2 mmol/L (3.5-5.1); Sodium 137 mmol/L (136-145); Total Protein 6.8 g/dL (6.4-8.2)
== END 2021-09-28 16:48 | disposition home or self-care (01) ==
LOC: NCHCN 16:47
PROVIDERS: PCP Nurse Practitioner Family; Visit Provider Nurse Practitioner Family
DX: D47.3 Essential (hemorrhagic) thrombocythemia (principal)
CPT/HCPCS: 80053; 85025

== ENCOUNTER 2021-10-19 21:09 | Outpatient (REF) | payer MEDICARE, SELFPAY ==
[2021-10-21 05:29] LABS: Vitamin D 25 Total 30.3 ng/mL (30-100)
== END 2021-10-19 21:10 | disposition home or self-care (01) ==
LOC: NCHCN 21:09
PROVIDERS: PCP Nurse Practitioner Family; Visit Provider Nurse Practitioner Family
DX: E55.9 Vitamin D deficiency, unspecified (principal); M81.0 Age-related osteoporosis without current pathological fracture
CPT/HCPCS: 82306

== ENCOUNTER 2021-10-26 08:43 | Outpatient (REF) | payer MEDICARE, SELFPAY ==
[2021-10-26 15:36] LABS: ALT 26 U/L (14-59); AST 16 U/L (15-37); Albumin 3.7 g/dL (3.4-5.0); Alkaline Phosphatase 87 U/L (46-116); Anion Gap 7.6 mmol/L (3-11); BUN 30 mg/dL (7-18); Bilirubin, Total 0.3 mg/dL (0.2-1.0); CO2 26.4 mmol/L (21.0-32.0); Calcium 8.8 mg/dL (8.5-10.1); Chloride 107 mmol/L (98-107); Estimated GFR 53.62 (mL/min/1.73m2); Glucose 69 mg/dL (74-106); Potassium 4.6 mmol/L (3.5-5.1); Sodium 141 mmol/L (136-145); Total Protein 7.1 g/dL (6.4-8.2)
== END 2021-10-26 08:44 | disposition home or self-care (01) ==
LOC: NCHCN 08:43
PROVIDERS: PCP Nurse Practitioner Family; Visit Provider Nurse Practitioner Family
DX: Z15.89 Genetic susceptibility to other disease (principal)
CPT/HCPCS: 80053

== ENCOUNTER 2021-12-17 13:22 | Emergency (ER) | payer MEDICARE, SELFPAY ==
[2021-12-17] VITALS (19 sets, daily range): BP systolic 137–157; BP diastolic 66–143; PULSE 99–124; RESP 14–28; TEMP 36.6; O2SAT 96–98
--- NOTE | 2021-12-17 13:15 | RT.EKG_ITS ---
APPROVED REPORT Exam: Resting ECG Reason for Exam: WEAKNESS Patient Location: E HR:120 bpm ECG Measurements Heart Rate 120 AXIS ME 158 P -5 QRSd 127 QRS 118 QT 338 T -26 QTc 476 Conclusion Sinus tachycardia...rate> 99 Ventricular premature complex...V complex w/ short R-R interval RBBB and LPFB...QRSd >120mS, axis(90,210). Sinus. RBBB. PVCs. No STEMI. No old EKG to compare. I have reviewed and interpreted ECG and agree with software generated interpretation.
[2021-12-17] MEDS: Ondansetron O.D.T. 4 MG TABEF PO (14:03)
[2021-12-17] MEDS: Normal Saline 500 ML IV (14:04)
[2021-12-17 14:06] LABS: Abs Immature Grans 0.02 10^3/uL (0.0-0.06); Absolute Basophil Count 0.02 10^3/uL (0.0-0.2); Absolute Eosinophil Count 0.11 10^3/uL (0.0-0.7); Absolute Lymphocyte Count 1.16 10^3/uL (1.2-3.4); Absolute Monocyte Count 0.46 10^3/uL (0.1-0.8); Absolute Neutrophil Count 4.89 10^3/uL (1.2-6.7); Basophils % 0.3; Eosinophils % 1.7; HCT 41.5 % (36.0-46.0); HGB 13.8 g/dL (11.2-15.7); Immature Grans % 0.3; Lymphocytes % 17.4; MCH 34.4 pg (27.0-33.0); MCHC 33.3 % (32.0-36.0); MCV 104 fL (80-95); MPV 9.7 fL (8.0-11.0); Monocytes % 6.9; Neutrophils % 73.4; Platelet Count 362 10^3/uL (130-400); RBC 4.01 10^6/uL (3.93-5.22); RDW 12.9 % (11.7-14.6); WBC 6.66 10^3/uL (4.4-10.8)
[2021-12-17 14:16] LABS: Bilirubin Negative (Negative); Blood Negative (Negative); Clarity Sl Cloudy (Clear); Glucose Negative (Negative); Ketones Negative (Negative); Leukocyte Esterase Negative (Negative); Nitrite Negative (Negative); Specific Gravity >= 1.030 (1.005-1.025); Urobilinogen 0.2 EU/dL (Up TO 0.2); pH 5.5 (5-8)
[2021-12-17 14:26] LABS: ALT 29 U/L (14-59); AST 15 U/L (15-37); Albumin 3.9 g/dL (3.4-5.0); Alkaline Phosphatase 82 U/L (46-116); Anion Gap 6.8 mmol/L (3-11); BUN 25 mg/dL (7-18); Bilirubin, Total 0.3 mg/dL (0.2-1.0); CO2 28.2 mmol/L (21.0-32.0); CREATININE 0.9 mg/dL (0.55-1.02); Calcium 8.9 mg/dL (8.5-10.1); Chloride 100 mmol/L (98-107); Glucose 145 mg/dL (74-106); Lipase 134 U/L (73-393); Potassium 3.3 mmol/L (3.5-5.1); Sodium 135 mmol/L (136-145); Total Protein 7.9 g/dL (6.4-8.2); Troponin I < 50 ng/L (<or=60)
[2021-12-17] MEDS: POTASSIUM CHLORIDE 20 MEQ, POTASSIUM CHLORIDE 10 MEQ 30 MEQ PO (15:14)
--- NOTE | 2021-12-17 15:17 | ED.GENADUL_ITS ---
Discharge Plan Disposition Patient Disposition: HOME Condition: Improving Discharge Details Clinical Impression: Gastroenteritis Primary Care Provider: Joie Jiang ED Provider: Pablo Acosta Home Meds and New Rx's Prescriptions: Continued hydroxyurea 500 mg capsule 500 mg PO DAILY bisacodyl [Dulcolax (bisacodyl)] 5 mg tablet,delayed release (DR/EC) 5 mg PO ONCE Qty: 4 0RF Rx Instructions: Take as directed for your colonoscopy polyethylene glycol 3350 17 gram powder in packet 255 g PO DAILY Qty: 15 0RF Rx Instructions: Mix 255 gm in 64 oz of gatorade or juice. Drink as directed famotidine 20 mg tablet 20 mg PO DAILY hydrocortisone [Anusol-HC] 30 GM cream with perineal applicator 30 gm RC Q4H PRN Qty: 1 levothyroxine 50 mcg capsule 50 mcg PO DAILY aspirin [Adult Aspirin Regimen] 81 mg tablet,delayed release (DR/EC) 81 mg PO DAILY simvastatin 20 MG tablet 20 mg PO DAILY acetaminophen 500 mg capsule 1,000 mg PO Q8H PRN PRNQty: 90 0RF Held ibuprofen 600 mg tablet 600 mg PO TID PRN (Reason: pain) Qty: 30 0RF Hold Instructions: Now having abdominal pain due to potential irritant Discharge Instructions Instructions: Gastroenteritis (ED) Additional Instructions: Continue to stay well-hydrated, take your normally prescribed medications, and use nausea tablets as needed. If you develop any new or significant worsening of symptoms return immediately to the emergency department for reassessment otherwise follow-up with your primary care provider if not improving over the next couple days. Referrals: Joie Jiang [Primary Care Provider] - 5 days (If not improving) Discharge Data Discharge Date/Time-TO BE ENTERED AT DEPARTURE: 12/17/21 16:09 Medical Decision Making Patient presenting the emergency department for chief complaint of epigastric discomfort with nausea vomiting and diarrhea along with chills that started earlier this week. Patient reports feeling she had a stomach bug and is here due to just not feeling like she is improving symptoms. Patient denies any sick contacts,, has significant past medical history of GERD, diverticulosis, hyperlipidemia, palpitations. Patient has had an oophorectomy and colonoscopy. Physical exam shows very mild tenderness to the epigastrium and hypoactive bowel movements along with some tachycardia otherwise no peritoneal findings, no findings concerning for surgical abdomen, patient is otherwise stable. We will plan on checking labs, EKG, and treating patient's symptoms along with giving fluid bolus due to suspected dehydration. Please see physician interpretation for full interpretation of EKG. Patient does appear to have sinus rhythm with noted tachycardia otherwise nondiagnostic with no signs of STEMI Review of labs show a overall unremarkable CBC with no significant signs of leukocytosis or shift, CMP shows slight decrease of sodium at 135, potassium of 3.3, BUN of 25 with a glucose of 145, magnesium within normal limits, LFTs are all unremarkable, troponin not detected, and lipase of 134. Urine does show high specific gravity but again no signs of infection. Patient reassessed and was able to tolerate some p.o. intake of fluids. Will give patient p.o. potassium, second 500 mL fluid bolus for total of 1 L, and continue p.o. challenge with plan for patient to be discharged if is able to tolerate p.o. intake Patient states improvement after receiving fluids, is tolerating p.o., and is improving. We will plan on discharging patient with close monitoring of symptoms along with return and follow-up precautions discussed. After discussion of diagnosis and plan of care patient has no further needs, questions, or concerns and states clear understanding to return to the emergency department for any worsening symptoms. This documentation was generated using [employer] dictation system, please disregard any oddities of phrase or misspellings. Lab Data Lab results reviewed: Yes I reviewed the patient's lab results. HPI General Mode of arrival: ambulatory . Date/Time Provider Initiated Documentation: 12/17/21 13:36 . Limitations to Documentation: no limitations . Information obtained by: patient and RN notes reviewed . History of Present Illness 76 year old F presents to the emergency department with the chief complaint of Epigastric pain, described as moderate, with intensity rated at 7. Quality is described as aching, and is localized to the abdomen. Patient reports no radiation. Patient started experiencing this day(s) (6) and it has been constant. No relieving factors improve symptom(s), No exacerbating factors reported . Patient notes malaise and nausea/vomiting; denies shortness of breath. Patient did receive the following treatments prior to arrival, other (Tums) Related Data Home Medications Medication Instructions Recorded Confirmed hydrocortisone 2.5 % topical cream 30 gm RC Q4H PRN ##1 10/18/13 02/26/21 with perineal applicator (Anusol-HC) simvastatin 20 mg tablet 20 mg PO DAILY 04/02/17 02/26/21 aspirin 81 mg tablet,delayed 81 mg PO DAILY 05/13/19 02/26/21 release (Adult Aspirin Regimen) levothyroxine 50 mcg capsule 50 mcg PO DAILY 05/13/19 02/26/21 bisacodyl 5 mg tablet,delayed 5 mg PO ONCE #4 tabs 05/17/19 02/26/21 release (Dulcolax (bisacodyl)) polyethylene glycol 3350 17 gram 255 g PO DAILY #15 ea 05/17/19 02/26/21 oral powder packet hydroxyurea 500 mg capsule 500 mg PO DAILY 12/18/20 02/26/21 acetaminophen 500 mg capsule 1,000 mg PO Q8H PRN PRN #90 caps 01/19/21 02/26/21 ibuprofen 600 mg tablet 600 mg PO TID PRN pain #30 tabs 01/19/21 02/26/21 famotidine 20 mg tablet 20 mg PO DAILY 02/26/21 02/26/21 Previous Rx's Medication Instructions Recorded bisacodyl 5 mg tablet,delayed 5 mg PO ONCE #4 tabs 05/17/19 release (Dulcolax (bisacodyl)) polyethylene glycol 3350 17 gram 255 g PO DAILY #15 ea 05/17/19 oral powder packet acetaminophen 500 mg capsule 1,000 mg PO Q8H PRN PRN #90 caps 01/19/21 ibuprofen 600 mg tablet 600 mg PO TID PRN pain #30 tabs 01/19/21 Allergies Allergy/AdvReac Type Severity Reaction Status Date / Time Penicillins Allergy Skin Rash Verified 12/17/21 13:33 General Stated Complaint: Chest Pain SAMARA: 2 Review of Systems Constitutional Constitutional: Reports chills, Denies fever(s), Denies headache(s), Reports let hargy, Reports malaise and Reports poor appetite ENT Ears, Nose, Mouth, and Throat: Denies headache(s) and Denies neck pain Cardiovascular Cardiovascular: Denies chest pain, Denies chest pain with activity, Denies syncope, Denies irregular heart rhythm, Denies palpitations and Denies dyspnea Respiratory Respiratory: Denies cough, Denies hemoptysis and Denies dyspnea Gastrointestinal Gastrointestinal: Reports abdominal pain, Denies hematochezia, Denies coffee ground emesis, Denies cramping, Reports diarrhea, Reports loose stools, Reports nausea, Reports vomiting and Denies hematemesis Genitourinary Genitourinary: Denies dysuria Musculoskeletal Musculoskeletal: Denies back pain and Denies neck pain Integumentary/Breasts Skin/Breast: Denies rash Neurologic Neurologic: Denies syncope and Denies headache(s) Psychiatric Psychiatric: Denies anxiety Endocrine Endocrine: Denies cold intolerance, Denies heat intolerance and Denies palpitations PFSH All Active Problems Gastroenteritis (Acute) Trigger thumb, right thumb (Acute) Trigger finger, left ring finger (Acute) S/P Release: 01/19/2021 Post-nasal drip (Acute) Chronic rhinitis (Acute) Allergic rhinitis due to dust mite (Acute) Allergic rhinitis due to allergen (Acute) Lump on finger (Acute) Left thumb Trigger thumb, left thumb (Acute) 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 Had to have Barium enema done Family History Brother Colon cancer Maternal Uncle Colon cancer Social History Smoking/Tobacco Use Status: Former Tobacco Use Smoking risk assessment performed?: Yes Alcohol Intake: current Alcohol Intake frequency: a few times a week Drug use: Never Do you feel safe at home: Yes Do you feel safe in your relationship?: Yes Exam Const General: cooperative Orientation: alert, awake and oriented x3 Resp Effort & Inspection: normal respiratory effort and able to speak in complete sentences Auscultation: clear to auscultation bilaterally Cardio Rate: regular rate Rhythm: regular rhythm Heart Sounds: S1 normal and S2 normal GI Palpation: soft, no hepatosplenomegaly, not firm, no guarding, no masses, no pulsatile masses, not rigid, no splenomegaly and tender in the epigastrum (mild to deep palp) Auscultation: normal bowel sounds Neuro General: patient alert, patient awake, patient oriented x3, gait normal and moves all extremities Course Vital Signs Vital signs: Vital Signs Temperature 36.6 C 12/17/21 13:26 Pulse 119 H 12/17/21 13:26 Respiratory Rate 18 12/17/21 13:26 Blood Pressure 137/66 12/17/21 13:26 Pulse Oximetry 98 12/17/21 13:26 Temperature 36.6 C 12/17/21 13:26 Pulse 105 H 12/17/21 13:46 Pulse 110 H 12/17/21 14:50 Respiratory Rate 21 12/17/21 14:50 Respiratory Effort Non-Labored 12/17/21 13:41 Respiratory Depth Normal 12/17/21 13:41 Respiratory Pattern Normal 12/17/21 13:41 Blood Pressure 157/143 H 12/17/21 13:46 Blood Pressure Mean 146 12/17/21 13:46 Pulse Oximetry 96 12/17/21 13:50 Oxygen Delivery Method Room Air 12/17/21 13:26 Oxygen Flow Rate 0 12/17/21 13:26 Pain Level 7 12/17/21 13:41 Lab/Test Results Lab/Test Results: Laboratory Tests Range/Units 12/17/21 12/17/21 12/17/21 13:35 13:35 13:50 WBC (4.4-10.8) 10^3/uL 6.66 RBC (3.93-5.22) 10^6/uL 4.01 Hgb (11.2-15.7) g/dL 13.8 Hct (36.0-46.0) % 41.5 MCV (80-95) fL 104 H MCH (27.0-33.0) pg 34.4 H MCHC (32.0-36.0) % 33.3 RDW (11.7-14.6) % 12.9 Plt Count (130-400) 10^3/uL 362 MPV (8.0-11.0) fL 9.7 Immature Gran % 0.3 Neutrophils % 73.4 Lymphocytes % 17.4 Monocytes % 6.9 Eosinophils % 1.7 Basophils % 0.3 Nucleated RBC % (0.0-0.3) % 0.0 Absolute Neutrophils (1.2-6.7) 10^3/uL 4.89 Absolute Lymphocytes (1.2-3.4) 10^3/uL 1.16 L Absolute Monocytes (0.1-0.8) 10^3/uL 0.46 Absolute Eosinophils (0.0-0.7) 10^3/uL 0.11 Absolute Basophils (0.0-0.2) 10^3/uL 0.02 Sodium (136-145) mmol/L 135 L Cancelled Potassium (3.5-5.1) mmol/L 3.3 L Cancelled Chloride (98-107) mmol/L 100 Cancelled Carbon Dioxide (21.0-32.0) mmol/L 28.2 Cancelled Anion Gap (3-11) mmol/L 6.8 Cancelled BUN (7-18) mg/dL 25 H Cancelled Creatinine (0.55-1.02) mg/dL 0.9 Cancelled Estimated GFR/1.73 m2 (mL/min/1.73m2) >= 60.00 Cancelled Glucose (74-106) mg/dL 145 H Cancelled Calcium (8.5-10.1) mg/dL 8.9 Cancelled Magnesium (1.8-2.4) mg/dL 2.0 Total Bilirubin (0.2-1.0) mg/dL 0.3 Cancelled AST (15-37) U/L 15 Cancelled ALT (14-59) U/L 29 Cancelled Alkaline Phosphatase (46-116) U/L 82 Cancelled Troponin I (<or=60) ng/L < 50 Total Protein (6.4-8.2) g/dL 7.9 Cancelled Albumin (3.4-5.0) g/dL 3.9 Cancelled Lipase (73-393) U/L 134 Urine Color (Yellow) Urine Clarity (Clear) Urine pH (5-8) Ur Specific [place] (1.005-1.025) Urine Protein (Negative) mg/dL Urine Ketones (Negative) mg/dL Urine Blood (Negative) Urine Nitrite (Negative) Urine Bilirubin (Negative) Urine Urobilinogen (Up TO 0.2) EU/dL Ur Leukocyte Esterase (Negative) Urine Glucose (Negative) mg/dL Range/Units 12/17/21 14:00 WBC (4.4-10.8) 10^3/uL RBC (3.93-5.22) 10^6/uL Hgb (11.2-15.7) g/dL Hct (36.0-46.0) % MCV (80-95) fL MCH (27.0-33.0) pg MCHC (32.0-36.0) % RDW (11.7-14.6) % Plt Count (130-400) 10^3/uL MPV (8.0-11.0) fL Immature Gran % Neutrophils % Lymphocytes % Monocytes % Eosinophils % Basophils % Nucleated RBC % (0.0-0.3) % Absolute Neutrophils (1.2-6.7) 10^3/uL Absolute Lymphocytes (1.2-3.4) 10^3/uL Absolute Monocytes (0.1-0.8) 10^3/uL Absolute Eosinophils (0.0-0.7) 10^3/uL Absolute Basophils (0.0-0.2) 10^3/uL Sodium (136-145) mmol/L Potassium (3.5-5.1) mmol/L Chloride (98-107) mmol/L Carbon Dioxide (21.0-32.0) mmol/L Anion Gap (3-11) mmol/L BUN (7-18) mg/dL Creatinine (0.55-1.02) mg/dL Estimated GFR/1.73 m2 (mL/min/1.73m2) Glucose (74-106) mg/dL Calcium (8.5-10.1) mg/dL Magnesium (1.8-2.4) mg/dL Total Bilirubin (0.2-1.0) mg/dL AST (15-37) U/L ALT (14-59) U/L Alkaline Phosphatase (46-116) U/L Troponin I (<or=60) ng/L Total Protein (6.4-8.2) g/dL Albumin (3.4-5.0) g/dL Lipase (73-393) U/L Urine Color (Yellow) Yellow Urine Clarity (Clear) Sl Cloudy Urine pH (5-8) 5.5 Ur Specific [place] (1.005-1.025) >= 1.030 H Urine Protein (Negative) mg/dL Negative Urine Ketones (Negative) mg/dL Negative Urine Blood (Negative) Negative Urine Nitrite (Negative) Negative Urine Bilirubin (Negative) Negative Urine Urobilinogen (Up TO 0.2) EU/dL 0.2 Ur Leukocyte Esterase (Negative) Negative Urine Glucose (Negative) mg/dL Negative PAWSS Have you Been Recently Intoxicated or Drunk Within the Last 30 days?: No Have you Ever Experienced Previous Episodes of Alcohol Withdrawal?: No Have you ever Experienced Withdrawal Seizures?: No Have you ever Experienced Delirium Tremens(DT)s?: No Have you ever undergone [facility]: No Have you ever Experienced Blackouts?: No Have you ever Combined Alcohol with other Downers within the last 90 days?: No Have you ever Combined Alcohol with any other Substance of Abuse during the last 90 days?: No Positive Blood Alcohol level on Presentation? [PCS.BAL]: No Evidence of Increased Autonomic Activity (i.e. HR>120, tremor, sweating, agitation, nausea)?: No Result: 0
--- NOTE | 2021-12-19 12:50 | W.ED.FU ---
Follow Up Plan: Patient called saying she is now having diarrhea, Approximately every 1-2 hours Recommended patient try Imodium if she needs to return to the emergency department should she like reassessment
== END 2021-12-17 16:09 | disposition home or self-care (01) ==
PROVIDERS: Emergency Provider Nurse Practitioner Family; PCP Nurse Practitioner Family
DX: K52.9 Noninfective gastroenteritis and colitis, unspecified (principal); E87.1 Hypo-osmolality and hyponatremia; E87.6 Hypokalemia; Z87.891 Personal history of nicotine dependence
CPT/HCPCS: 36415; 80053; 83690; 93005; 96360; 96361; 99284; 81003; 83735; 84484; 85025; 93010

== ENCOUNTER 2021-12-20 09:07 | Emergency (ER) | payer MEDICARE, SELFPAY ==
[2021-12-20] VITALS (25 sets, daily range): BP systolic 52–131; BP diastolic 29–73; PULSE 46–106; RESP 11–26; TEMP 36.9; O2SAT 93–97
--- NOTE | 2021-12-20 09:25 | ED.GENADUL_ITS ---
Discharge Plan Disposition Patient Disposition: HOME Condition: Stable Discharge Details Clinical Impression: Gastroenteritis Primary Care Provider: Joie Jiang ED Provider: Eneida Garber Home Meds and New Rx's Prescriptions: Continued hydroxyurea 500 mg capsule 500 mg PO DAILY bisacodyl [Dulcolax (bisacodyl)] 5 mg tablet,delayed release (DR/EC) 5 mg PO ONCE Qty: 4 0RF Rx Instructions: Take as directed for your colonoscopy polyethylene glycol 3350 17 gram powder in packet 255 g PO DAILY Qty: 15 0RF Rx Instructions: Mix 255 gm in 64 oz of gatorade or juice. Drink as directed famotidine 20 mg tablet 20 mg PO DAILY hydrocortisone [Anusol-HC] 30 GM cream with perineal applicator 30 gm RC Q4H PRN Qty: 1 levothyroxine 50 mcg capsule 50 mcg PO DAILY aspirin [Adult Aspirin Regimen] 81 mg tablet,delayed release (DR/EC) 81 mg PO DAILY simvastatin 20 MG tablet 20 mg PO DAILY acetaminophen 500 mg capsule 1,000 mg PO Q8H PRN PRNQty: 90 0RF ibuprofen 600 mg tablet 600 mg PO TID PRN (Reason: pain) Qty: 30 0RF Hold Instructions: Now having abdominal pain due to potential irritant No Action vancomycin 125 mg capsule 125 mg PO QID 10 Days Qty: 40 0RF Rx Instructions: Take 1 Capsule 4 times daily with food or yogurt x10 days. Discharge Instructions Instructions: Gastroenteritis (ED) Additional Instructions: Your labs are reassuring here today. Despite your continued GI upset, you are doing excellent keeping yourself hydrated. Please continue to keep yourself hydrated, encourage water intake as well as sports drinks or Pedialyte. Please try to steer clear of red drinks as these may change the color of your stool. As we discussed, I would like for you to bring us a stool sample if we can look for infectious causes, please follow directions given by nursing staff in regard to stool collection. If he develop fever/chills, abdominal pain, inability stay hydrated or other new/worsening symptoms please seek care urgently once again. Otherwise, please follow-up with primary care within the next week for reevaluation. Referrals: Joie Jiang [Primary Care Provider] - Discharge Data Discharge Date/Time-TO BE ENTERED AT DEPARTURE: 12/20/21 11:35 Medical Decision Making Patient is a pleasant 76-year-old female presenting today with chief complaint of diarrhea and fatigue. Patient was seen here 3 days ago at which time she was endorsing some epigastric discomfort, nausea and vomiting. She reports that at that time, she had minimal diarrhea but that it seemed to increase the following day, Monday 2 days ago. She reports that since then she is tried Kaopectate, Pepto-Bismol, Imodium all without significant relief from her diarrhea. She denies any abdominal pain. No fevers or chills. States that she did travel to [place] recently and was drinking from an artesian well but no other ill contacts or troubles with her. She is not having any continued nausea or vomiting but reports that her appetite has been diminished. She states she slept well last night and did not wake because of her diarrhea. She denies any chest pain, shortness of breath. Denies any blood in her stool but states it was darker after taking the Pepto-Bismol. On exam, patient appears nontoxic. Her initial heart rate was 46 and blood pressure 81/29. However, on palpation this is certainly not the correct heart rate and patient blood pressure seem much too low given her symptoms. Repeat was completed and again was showing a systolic in the 60s. However, with a manual cuff blood pressure was 92/60 with a heart rate in the 80s-90s. Patient has a pale look that her conjunctiva are pink. Dry mucous membranes. Lungs are clear to the normal cardiac auscultation, abdomen is benign. I did review previous laboratory evaluation from the fifth. She did have a slightly low K at that time of 3.3. No stool samples were obtained at that time. With the patient's recent travel to [place] and persistent symptoms, will obtain that now. Also plan to recheck patient's electrolytes. Labs reviewed. No leukocytosis. Stable H&H. No significant abnormalities on her CMP. BUN is slightly elevated at 21 but this is down from when she was here recently. Troponin within normal limits. Her albumin is slightly low at 3.0. Her urinalysis is without abnormality, in particular specific gravity is within normal limits. I reevaluated the patient, she has not been able to have a bowel movement here and does not feel like she is going to. She does state that she took Imodium this morning. She is thirsty and drinking in the room. She states that aside from feeling fatigued, she is feeling okay at this time. She did receive fluids here. She would like to be able to go home and sleep. We did discuss having her stay here for a longer period of time. Sure that her diarrhea does not recur and obtain a sample but she would prefer to be able to go home and rest. Is agreeable to stool collection kit and bring in sample when she is able. Return precautions were discussed. Encourage close follow-up with primary care. All of her questions and concerns were addressed and she is in agreement with this plan. HPI General Date/Time Provider Initiated Documentation: 12/20/21 09:13 . Limitations to Documentation: no limitations . Information obtained by: patient, family, RN notes reviewed and old records reviewed . History of Present Illness 76 year old F presents to the emergency department with the chief complaint of diarrhea, fatigue, described as moderate, Quality is described as other (no pain currently ), and is localized to the abdomen. Patient reports no radiation. Patient started experiencing this day(s) and it has been constant. No relieving factors improve symptom(s), No exacerbating factors reported . Patient notes loss of appetite, malaise and nausea/vomiting; denies chest pain, cough, diaphoresis, fever/chills, headaches and shortness of breath. Patient did receive the following treatments prior to arrival, none Related Data Home Medications Medication Instructions Recorded Confirmed hydrocortisone 2.5 % topical cream 30 gm RC Q4H PRN ##1 10/18/13 12/20/21 with perineal applicator (Anusol-HC) simvastatin 20 mg tablet 20 mg PO DAILY 04/02/17 12/20/21 aspirin 81 mg tablet,delayed 81 mg PO DAILY 05/13/19 12/20/21 release (Adult Aspirin Regimen) levothyroxine 50 mcg capsule 50 mcg PO DAILY 05/13/19 12/20/21 bisacodyl 5 mg tablet,delayed 5 mg PO ONCE #4 tabs 05/17/19 12/20/21 release (Dulcolax (bisacodyl)) polyethylene glycol 3350 17 gram 255 g PO DAILY #15 ea 05/17/19 12/20/21 oral powder packet hydroxyurea 500 mg capsule 500 mg PO DAILY 12/18/20 12/20/21 acetaminophen 500 mg capsule 1,000 mg PO Q8H PRN PRN #90 caps 01/19/21 12/20/21 ibuprofen 600 mg tablet 600 mg PO TID PRN pain #30 tabs 01/19/21 12/20/21 famotidine 20 mg tablet 20 mg PO DAILY 02/26/21 12/20/21 vancomycin 125 mg capsule 125 mg PO QID c. Difficile 10 days 12/21/21 #40 caps Previous Rx's Medication Instructions Recorded bisacodyl 5 mg tablet,delayed 5 mg PO ONCE #4 tabs 05/17/19 release (Dulcolax (bisacodyl)) polyethylene glycol 3350 17 gram 255 g PO DAILY #15 ea 05/17/19 oral powder packet acetaminophen 500 mg capsule 1,000 mg PO Q8H PRN PRN #90 caps 01/19/21 ibuprofen 600 mg tablet 600 mg PO TID PRN pain #30 tabs 01/19/21 vancomycin 125 mg capsule 125 mg PO QID c. Difficile 10 days 12/21/21 #40 caps Allergies Allergy/AdvReac Type Severity Reaction Status Date / Time Penicillins Allergy Skin Rash Verified 12/20/21 10:30 General Stated Complaint: Nausea/Vomit/Diar SAMARA: 3 Review of Systems Constitutional Constitutional: Reports as per HPI, Denies chills, Denies fever(s) and Denies headache(s) ENT Ears, Nose, Mouth, and Throat: Denies headache(s) Cardiovascular Cardiovascular: Reports as per HPI, Denies chest pain and Denies dyspnea Respiratory Respiratory: Reports as per HPI, Denies cough and Denies dyspnea Gastrointestinal Gastrointestinal: Reports as per HPI Musculoskeletal Musculoskeletal: Reports as per HPI and Denies back pain Integumentary/Breasts Skin/Breast: Reports as per HPI and Denies rash Neurologic Neurologic: Reports as per HPI and Denies headache(s) PFSH All Active Problems (Updated 12/20/21 @ 11:22 by WM Francois) Gastroenteritis (Acute) Trigger thumb, right thumb (Acute) Trigger finger, left ring finger (Acute) S/P Release: 01/19/2021 Post-nasal drip (Acute) Chronic rhinitis (Acute) Allergic rhinitis due to dust mite (Acute) Allergic rhinitis due to allergen (Acute) Lump on finger (Acute) Left thumb Trigger thumb, left thumb (Acute) 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 Had to have Barium enema done Family History Brother Colon cancer Maternal Uncle Colon cancer Social History Smoking risk assessment performed?: No Alcohol Intake: current Alcohol Intake frequency: holidays/special occasions only Alcohol type: wine Drug use: Never Substance use type: does not use Do you feel safe at home: Yes Do you feel safe in your relationship?: Yes Exam Const General: cooperative, healthy appearing, comfortable, no acute distress and well developed Nutritional Appearance: average body habitus and well nourished Orientation: alert and awake [facility] Head: normal to inspection Mouth: mucous membranes dry (appears dry) Resp Effort & Inspection: normal respiratory effort, able to speak in complete sentences and no respiratory distress Auscultation: clear to auscultation bilaterally, no rales, no rhonchi and no wheezes Cardio Rate: regular rate Rhythm: regular rhythm Heart Sounds: S1 normal and S2 normal GI Inspection: normal to inspection Palpation: soft, no hepatosplenomegaly, no guarding, not rigid, nontender and No ascites Percussion: normal to percussion Back/Spine/Pelvis Back: no CVA tenderness Skin General skin exam: no rashes or lesions noted Trauma: no lacerations or abrasions Neuro General: patient alert and patient awake Cognition: normal cognition Speech: speech normal Gait: normal gait Extrem General: capillary refill normal, no pedal edema and no calf tenderness Psych Appearance: grossly normal and well kempt Mental Status: mental status grossly normal Speech and Movement: speech and movement normal Course Vital Signs Vital signs: Vital Signs Temperature 36.9 C 12/20/21 09:15 Pulse 46 L 12/20/21 09:15 Respiratory Rate 18 12/20/21 09:15 Blood Pressure 81/29 L 12/20/21 09:15 Pulse Oximetry 96 12/20/21 09:15 Temperature 36.9 C 12/20/21 09:15 Temperature Source Temporal Artery Scan 12/20/21 09:15 Pulse 46 L 12/20/21 09:15 Respiratory Rate 18 12/20/21 09:15 Blood Pressure 81/29 L 12/20/21 09:15 Blood Pressure Position Sitting 12/20/21 09:15 Pulse Oximetry 96 12/20/21 09:15 Oxygen Delivery Method Room Air 12/20/21 09:15 Oxygen Flow Rate 0 12/20/21 09:15
[2021-12-20] MEDS: Lactated Ringers 1,000 ML 1000 ML IV (09:32)
[2021-12-20 09:50] LABS: Abs Immature Grans 0.02 10^3/uL (0.0-0.06); Absolute Basophil Count 0.03 10^3/uL (0.0-0.2); Absolute Eosinophil Count 0.09 10^3/uL (0.0-0.7); Absolute Lymphocyte Count 0.99 10^3/uL (1.2-3.4); Absolute Monocyte Count 0.46 10^3/uL (0.1-0.8); Absolute Neutrophil Count 4.06 10^3/uL (1.2-6.7); Basophils % 0.5; Eosinophils % 1.6; HCT 38.3 % (36.0-46.0); HGB 12.9 g/dL (11.2-15.7); Immature Grans % 0.4; Lymphocytes % 17.5; MCH 34.7 pg (27.0-33.0); MCHC 33.7 % (32.0-36.0); MCV 103 fL (80-95); MPV 9.2 fL (8.0-11.0); Monocytes % 8.1; Neutrophils % 71.9; Platelet Count 291 10^3/uL (130-400); RBC 3.72 10^6/uL (3.93-5.22); RDW 12.4 % (11.7-14.6); RDW-SD 46.9 fL; WBC 5.65 10^3/uL (4.4-10.8)
[2021-12-20 09:58] LABS: Bilirubin Negative (Negative); Blood Negative (Negative); Clarity Clear (Clear); Glucose Negative (Negative); Ketones Negative (Negative); Leukocyte Esterase Negative (Negative); Nitrite Negative (Negative); Urobilinogen 0.2 EU/dL (Up TO 0.2)
[2021-12-20 10:07] LABS: ALT 31 U/L (14-59); AST 28 U/L (15-37); Alkaline Phosphatase 64 U/L (46-116); Anion Gap 9.8 mmol/L (3-11); BUN 21 mg/dL (7-18); Bilirubin, Total 0.2 mg/dL (0.2-1.0); CO2 24.2 mmol/L (21.0-32.0); CREATININE 0.9 mg/dL (0.55-1.02); Calcium 8.3 mg/dL (8.5-10.1); Chloride 99 mmol/L (98-107); Glucose 82 mg/dL (74-106); Magnesium 1.8 mg/dL (1.8-2.4); Potassium 3.6 mmol/L (3.5-5.1); Sodium 133 mmol/L (136-145); Total Protein 6.9 g/dL (6.4-8.2); Troponin I < 50 ng/L (<or=60)
== END 2021-12-20 11:35 | disposition home or self-care (01) ==
PROVIDERS: Emergency Provider Physician Assistant; PCP Nurse Practitioner Family
DX: K52.9 Noninfective gastroenteritis and colitis, unspecified (principal)
CPT/HCPCS: 80053; 87493; 87505; 96360; 99283; 81003; 83630; 83735; 84484; 85025; 87177; 99284

== ENCOUNTER 2021-12-20 17:03 | Outpatient (REF) | payer MEDICARE, SELFPAY ==
[2021-12-21 22:02] LABS: Campylobacter PCR Negative (Negative); Salmonella PCR Negative (Negative); Shiga Toxin PCR Negative (Negative); Shigella/Enteroinvasive Ecoli Negative (Negative)
== END 2021-12-20 17:04 | disposition home or self-care (01) ==
LOC: LBN 17:03
PROVIDERS: PCP Nurse Practitioner Family; Visit Provider Registered Nurse Emergency
DX: R19.7 Diarrhea, unspecified (principal)
CPT/HCPCS: 87505; 82270; 83630; 87177

== ENCOUNTER 2021-12-21 20:32 | Outpatient (REF) | payer MEDICARE, SELFPAY ==
[2021-12-21 17:10] LABS: C Diff PCR Positive (Negative)
--- NOTE | 2021-12-21 22:17 | W.ED.FU ---
Date of service: 12/21/21 Time of Service: 22:17 Follow Up Plan: Informed by lab that patient's stool sample came back positive for C. difficile.. Call made to patient, discussed results for positive stool with C. difficile with patient who verbalized understanding. I will send vancomycin prescription into pharmacy on file I did discuss strict follow-up instructions or return instructions of sicker at any time. Patient verbalized understanding. Prescription for vancomycin 125 mg 4 times a day capsule E scribed to [facility] in [facility]
== END 2021-12-21 20:33 | disposition home or self-care (01) ==
LOC: LBN 20:32
PROVIDERS: PCP Nurse Practitioner Family; Visit Provider Registered Nurse Emergency
DX: R19.7 Diarrhea, unspecified (principal)
CPT/HCPCS: 87493; 82272; 83630

== ENCOUNTER 2022-01-06 16:20 | Outpatient (REF) | payer MEDICARE, SELFPAY ==
[2022-01-06 13:02] LABS: C Diff PCR Negative (Negative)
== END 2022-01-06 16:21 | disposition home or self-care (01) ==
LOC: NCHCN 16:20
PROVIDERS: PCP Nurse Practitioner Family; Visit Provider Family Medicine
DX: A04.72 Enterocolitis due to Clostridium difficile, not specified as recurrent (principal)
CPT/HCPCS: 87493

== ENCOUNTER 2022-04-28 17:28 | Outpatient (REF) | payer MEDICARE, SELFPAY ==
[2022-04-28 14:24] LABS: Abs Immature Grans 0.02 10^3/uL (0.0-0.06); Absolute Basophil Count 0.04 10^3/uL (0.0-0.2); Absolute Eosinophil Count 0.25 10^3/uL (0.0-0.7); Absolute Monocyte Count 0.53 10^3/uL (0.1-0.8); Absolute Neutrophil Count 3.82 10^3/uL (1.2-6.7); Basophils % 0.6; Eosinophils % 3.8; HCT 41.4 % (36.0-46.0); HGB 13.5 g/dL (11.2-15.7); Immature Grans % 0.3; MCH 33.4 pg (27.0-33.0); MCHC 32.6 % (32.0-36.0); MCV 103 fL (80-95); MPV 9.7 fL (8.0-11.0); Monocytes % 8.1; Neutrophils % 58.2; Platelet Count 355 10^3/uL (130-400); RBC 4.04 10^6/uL (3.93-5.22); RDW 13.8 % (11.7-14.6); RDW-SD 51.8 fL; WBC 6.56 10^3/uL (4.4-10.8)
[2022-04-28 14:37] LABS: ALT 27 U/L (14-59); AST 16 U/L (15-37); Alkaline Phosphatase 78 U/L (46-116); Anion Gap 5.4 mmol/L (3-11); BUN 26 mg/dL (7-18); Bilirubin, Total 0.3 mg/dL (0.2-1.0); CO2 28.6 mmol/L (21.0-32.0); CREATININE 0.9 mg/dL (0.55-1.02); Chloride 104 mmol/L (98-107); Estimated GFR 65.44 (mL/min/1.73m2); Glucose 84 mg/dL (74-106); Potassium 5.1 mmol/L (3.5-5.1); Sodium 138 mmol/L (136-145); Total Protein 7.4 g/dL (6.4-8.2)
== END 2022-04-28 17:29 | disposition home or self-care (01) ==
LOC: NCHCN 17:28
PROVIDERS: PCP Nurse Practitioner Family; Visit Provider Nurse Practitioner Family
DX: D47.3 Essential (hemorrhagic) thrombocythemia (principal)
CPT/HCPCS: 80053; 85025

== ENCOUNTER 2022-06-07 15:49 | Outpatient (REF) | payer MEDICARE, SELFPAY ==
[2022-06-07 14:47] LABS: TSH (W/Ref FT4) 3.36 uIU/mL (0.36-3.74)
== END 2022-06-07 15:50 | disposition home or self-care (01) ==
LOC: NCHCN 15:49
PROVIDERS: PCP Nurse Practitioner Family; Visit Provider Nurse Practitioner Family
DX: E03.9 Hypothyroidism, unspecified (principal)
CPT/HCPCS: 84443

== ENCOUNTER 2022-09-29 01:24 | Outpatient (CLI) | payer MEDICARE, SELFPAY ==
--- NOTE | 2022-09-29 | DI.RAD_ITS ---
Exam(s) XR CHEST 2V PA LATERAL EXAM: XR CHEST 2V PA LATERAL CLINICAL HISTORY: EXERTIONAL SHORTNESS OF BREATH, R06.09 TECHNIQUE: 2D digital imaging was performed of the chest. Two images were obtained. PA and lateral views were obtained. COMPARISON: CR CHEST 2 VIEWS PA,LAT from 09/15/2017 FINDINGS: MEDIASTINUM: There is a small hiatal hernia. HEART: Normal. PULMONARY VASCULATURE: Normal. LUNGS: There is a question of a 1 cm nodule in the right mid lung overlying the right 8th rib. No fo puneet consolidating infiltrates. PLEURAL SPACE: No pleural effusion or pneumothorax. BONE:Within normal limits for the patient's age. OTHER FINDINGS:Normal. IMPRESSION: 1. No acute pulmonary findings. 2. Question of a 1 cm nodule in the lateral aspect of the right mid lung. A CT scan of the chest may be obtained for further evaluation. Unexpected findings DATA REPOSITORY: RADIATION DOSE DELIVERED:
== END 2022-09-29 01:44 ==
LOC: DI 01:24
PROVIDERS: PCP Nurse Practitioner Family; Visit Provider Nurse Practitioner Family
DX: R06.09 Other forms of dyspnea (principal); R91.8 Other nonspecific abnormal finding of lung field
CPT/HCPCS: 71046

== ENCOUNTER 2022-10-13 04:06 | Outpatient (CLI) | payer MEDICARE, SELFPAY ==
[2022-10-13] MEDS: Albuterol HFA 18 GM 200 PUFF INH IH (11:18)
[2022-10-13] MEDS: Inhaler, Assist Device 1 EACH MC (11:18)
--- NOTE | 2022-10-13 15:55 | W.PFT ---
Date of service: 10/13/22 Time of Service: 10:00 Pulmonary Function Test Result Indications: Dyspnea on exertion Interpretation Spirometry: There is no airflow limitation. No bronchodilator response. Lung Volumes: Normal lung volumes Diffusion Capacity: Normal diffusion Airway Pressure: Normal airways resistance Impression Normal pulmonary function testing Clinical Correlation therefore is recommended.
== END 2022-10-13 04:07 | disposition home or self-care (01) ==
PROVIDERS: PCP Nurse Practitioner Family; Visit Provider Nurse Practitioner Family
DX: R06.09 Other forms of dyspnea (principal)
CPT/HCPCS: 94060; 94726; 94729

== ENCOUNTER 2022-10-25 13:13 | Outpatient (REF) | payer MEDICARE, SELFPAY ==
[2022-10-25 15:27] LABS: Abs Immature Grans 0.01 10^3/uL (0.0-0.06); Absolute Basophil Count 0.03 10^3/uL (0.0-0.2); Absolute Eosinophil Count 0.25 10^3/uL (0.0-0.7); Absolute Lymphocyte Count 1.78 10^3/uL (1.2-3.4); Absolute Monocyte Count 0.55 10^3/uL (0.1-0.8); Absolute Neutrophil Count 3.78 10^3/uL (1.2-6.7); Basophils % 0.5; Eosinophils % 3.9; HCT 37.7 % (36.0-46.0); HGB 12.7 g/dL (11.2-15.7); Immature Grans % 0.2; Lymphocytes % 27.8; MCH 34.6 pg (27.0-33.0); MCHC 33.7 % (32.0-36.0); MCV 103 fL (80-95); MPV 9.5 fL (8.0-11.0); Monocytes % 8.6; Platelet Count 366 10^3/uL (130-400); RBC 3.67 10^6/uL (3.93-5.22); RDW 12.9 % (11.7-14.6); RDW-SD 49.1 fL
[2022-10-25 15:40] LABS: ESR 17 mm/hr (0-30)
[2022-10-25 15:44] LABS: ALT 27 U/L (14-59); AST 17 U/L (15-37); Albumin 3.8 g/dL (3.4-5.0); Alkaline Phosphatase 74 U/L (46-116); Anion Gap 5.8 mmol/L (3-11); BUN 35 mg/dL (7-18); Bilirubin, Total 0.3 mg/dL (0.2-1.0); CO2 28.2 mmol/L (21.0-32.0); Calcium 8.8 mg/dL (8.5-10.1); Chloride 105 mmol/L (98-107); Estimated GFR 57.31 (mL/min/1.73m2); Glucose 84 mg/dL (74-106); Potassium 4.4 mmol/L (3.5-5.1); Sodium 139 mmol/L (136-145)
[2022-10-25 21:53] LABS: Rheumatoid Factor <8.6 IU/mL (<12.0)
[2022-10-26 15:40] LABS: ANA Interpretation Negative (Negative)
== END 2022-10-25 13:14 | disposition home or self-care (01) ==
LOC: NCHCN 13:13
PROVIDERS: PCP Nurse Practitioner Family; Visit Provider Nurse Practitioner Family
DX: D47.3 Essential (hemorrhagic) thrombocythemia (principal); I10 Essential (primary) hypertension; E83.41 Hypermagnesemia; E03.9 Hypothyroidism, unspecified; M81.0 Age-related osteoporosis without current pathological fracture
CPT/HCPCS: 80053; 85652; 85025; 86038; 86140; 86431

== ENCOUNTER 2022-10-26 02:30 | Outpatient (CLI) | payer MEDICARE, SELFPAY ==
--- NOTE | 2022-10-26 | DI.CT_ITS ---
Exam(s) CT CHEST WO EXAM: CT CHEST WO CLINICAL HISTORY: PULMONARY NODULE, J98.4, EXERTIONAL SHORTNESS OF BREATH, R06.09. TECHNIQUE: Multi planar reconstructions were performed. CONTRAST MATERIAL: None COMPARISON: CR XR CHEST 2V PA LATERAL from 09/29/2022 FINDINGS: CHEST: LUNGS: There is a small nodular density measuring 5 mm in the right lung region upper lobe-right midd le lobe junction. Another similar size nodular density seen anteriorly in the right middle lobe subp leural location. No confluent infiltrates nor pleural effusions. No significant focal left lung fin dings. No pneumothorax. MEDIASTINUM: There is no obvious hilar nor mediastinal adenopathy. Visualized thyroid unremarkable.La rge hiatal hernia noted. This measures 7 cm wide by 5 cm AP. CARDIAC: Heart size is normal. There is no pericardial effusion.Caliber of the thoracic aorta is wit hin normal limits. VISUALIZED UPPER ABDOMEN:No adrenal masses.. There is cyst measuring 1.7 cm in the anterior cortex l eft kidney. Few small nonobstructive calculi in left kidney also noted. There is a hypodensity in t he the left hepatic lobe measuring 1.9 x 0.5 cm, consistent probable cyst or hemangioma. Difficult t o assess accurately without IV contrast. OSSEOUS: No significant osseous lesions.. IMPRESSION: 1. There few small 5 mm nodular densities in the right lung as described above. No pleural effusions nor intrathoracic adenopathy. 2. Recommend repeat CT scan in 6 months. 3. Large hiatal hernia noted. Other findings as above. RADIATION DOSE DELIVERED: 481.17mGy.cm Total DLP DATA REPOSITORY: All CT scans at this facility are submitted to the National Radiology Data Registry (NRDR) Dose Index Registry (DIR) with the [employer] ([employer]). RADIATION OPTIMIZATION: All CT scans at this facility use at least one of these dose optimization te chniques: automated exposure control; mA and/or kV adjustment per patient size (includes targeted exa ms where dose is matched to clinical indication); or iterative reconstruction.
== END 2022-10-26 02:50 ==
LOC: DI 02:30
PROVIDERS: PCP Nurse Practitioner Family; Visit Provider Nurse Practitioner Family
DX: R91.8 Other nonspecific abnormal finding of lung field (principal); R06.09 Other forms of dyspnea
CPT/HCPCS: 71250

== ENCOUNTER 2023-04-26 14:35 | Outpatient (REF) | payer MEDICARE, SELFPAY ==
[2023-04-26 21:48] LABS: Abs Immature Grans 0.01 10^3/uL (0.0-0.06); Absolute Basophil Count 0.04 10^3/uL (0.0-0.2); Absolute Eosinophil Count 0.23 10^3/uL (0.0-0.7); Absolute Lymphocyte Count 1.79 10^3/uL (1.2-3.4); Absolute Monocyte Count 0.58 10^3/uL (0.1-0.8); Basophils % 0.7; HCT 39.2 % (36.0-46.0); HGB 13.1 g/dL (11.2-15.7); Immature Grans % 0.2; Lymphocytes % 31.1; MCH 34.3 pg (27.0-33.0); MCHC 33.4 % (32.0-36.0); MCV 103 fL (80-95); MPV 9.8 fL (8.0-11.0); Monocytes % 10.1; Neutrophils % 53.9; Platelet Count 315 10^3/uL (130-400); RBC 3.82 10^6/uL (3.93-5.22); RDW 12.9 % (11.7-14.6); RDW-SD 47.8 fL; WBC 5.75 10^3/uL (4.4-10.8)
[2023-04-26 21:59] LABS: ALT 205 U/L (14-59); AST 131 U/L (15-37); Albumin 3.8 g/dL (3.4-5.0); Alkaline Phosphatase 73 U/L (46-116); Anion Gap 10.5 mmol/L (3-11); BUN 25 mg/dL (7-18); Bilirubin, Total 0.4 mg/dL (0.2-1.0); CO2 26.5 mmol/L (21.0-32.0); CREATININE 0.9 mg/dL (0.55-1.02); Calcium 9.5 mg/dL (8.5-10.1); Chloride 104 mmol/L (98-107); Estimated GFR 65.03 (mL/min/1.73m2); Glucose 105 mg/dL (74-106); Potassium 4.2 mmol/L (3.5-5.1); Sodium 141 mmol/L (136-145)
== END 2023-04-26 14:36 | disposition home or self-care (01) ==
LOC: NCHCN 14:35
PROVIDERS: PCP Nurse Practitioner Family; Visit Provider Nurse Practitioner Family
DX: I10 Essential (primary) hypertension (principal)
CPT/HCPCS: 80053; 85025

== ENCOUNTER → 2023-04-28 00:54 | Outpatient (CLI) | payer MEDICARE, SELFPAY ==
--- NOTE | 2023-04-28 | DI.US_ITS ---
Exam(s) US ABDOMEN LIMITED EXAM: US ABDOMEN LIMITED CLINICAL HISTORY: ABNL LFT'S,R94.5 TECHNIQUE: Ultrasound abdomen performed using standard protocol. COMPARISON: CT CT CHEST WO from 10/26/2022 FINDINGS: LIVER: Normal size. Slightly increased echogenicity, consistent with mild hepatic steatosis. Echoge nicity. 1.8 cm cyst left lobe. No follow-up recommended. GALLBLADDER: Small mobile gallstones.. No evidence of wall thickening. No pericholecystic fluid iden tified. HUSAIN'S SIGN: Negative. BILIARY SYSTEM: Common bile duct measures 11 millimeters. No common duct stone visible. No intrahep atic biliary ductal dilation. Right kidney: No evidence of renal calculi. No evidence of hydronephrosis. No renal mass or cyst iden tified. PANCREAS: Normal where visualized. ABDOMINAL AORTA AND IVC: Visualized portions normal caliber. ASCITES: None seen. IMPRESSION: Mild hepatic steatosis. DATA REPOSITORY:
== END ==
PROVIDERS: PCP Nurse Practitioner Family; Visit Provider Nurse Practitioner Family
DX: K76.0 Fatty (change of) liver, not elsewhere classified (principal)
CPT/HCPCS: 76705

== ENCOUNTER → 2023-05-18 01:19 | Outpatient (CLI) | payer MEDICARE, SELFPAY ==
--- NOTE | 2023-05-18 | DI.CT_ITS ---
Exam(s) CT CHEST WO EXAM: CT CHEST WO CLINICAL HISTORY: DYSPNEA,R06.00,F/U NODULE, R91.1. TECHNIQUE: Imaging protocol: Axial computed tomography images were obtained and coronal and sagittal reformatted images were created and reviewed. COMPARISON: CT CT CHEST WO from 10/26/2022 FINDINGS: Tracheobronchial tree: Patent where visualized. Pulmonary parenchyma: No consolidation or dominant measurable mass. No architectural distortion. Calc ified granuloma in the lateral aspect of left lower lobe (series 3, image 414). Stable 3 mm nodule i n the medial aspect of the left upper lobe (series 3, image 107). Stable perifissural nodules associ ated with the right minor fissure. (Series 3, images 282 and 307.). No new pulmonary nodules. Mediastinum and Chacha: No dominant adenopathy or fluid collection. The esophagus is unremarkable.There is a large hiatal hernia. Thyroid gland: Unremarkable. Pleura: No effusion or pneumothorax. Heart: The heart is not dilated. Coronary artery calcifications and/or stents are present. No perica rdial effusion. Aorta: Thoracic aorta non-dilated. Atherosclerosis is present. Upper abdomen: Stable hepatic and left renal cysts. Lymph nodes: Within normal limits. Soft tissues: Unremarkable. Bones:Within normal limits for the patient's age. IMPRESSION: Stable pulmonary nodules. No new pulmonary nodules. Follow-up examination in 12 months is recommend ed. RADIATION DOSE DELIVERED: Total DLP Total DLP DATA REPOSITORY: All CT scans at this facility are submitted to the National Radiology Data Registry (NRDR) Dose Index Registry (DIR) with the [employer] (A[employer]). RADIATION OPTIMIZATION: All CT scans at this facility use at least one of these dose optimization te chniques: automated exposure control; mA and/or kV adjustment per patient size (includes targeted exa ms where dose is matched to clinical indication); or iterative reconstruction.
== END ==
PROVIDERS: PCP Nurse Practitioner Family; Visit Provider Nurse Practitioner Family
DX: R91.1 Solitary pulmonary nodule (principal)
CPT/HCPCS: 71250

== ENCOUNTER 2023-05-22 15:43 | Outpatient (REF) | payer MEDICARE, SELFPAY ==
[2023-05-22 21:56] LABS: ALT 158 U/L (14-59); AST 92 U/L (15-37); Albumin 3.8 g/dL (3.4-5.0); Alkaline Phosphatase 71 U/L (46-116); Bilirubin, Direct 0.1 mg/dL (0.0-0.2); Bilirubin, Total 0.3 mg/dL (0.2-1.0); TSH (W/Ref FT4) 1.25 uIU/mL (0.36-3.74); Total Protein 7.3 g/dL (6.4-8.2)
[2023-05-23 19:04] LABS: Hepatitis A Antibody IgM Negative (Negative); Hepatitis B Core Antibody Negative (Negative); Hepatitis B surface Ag Negative (Negative); Hepatitis C Ab w Rflx HCV PCR Negative (Negative)
== END 2023-05-22 15:44 | disposition home or self-care (01) ==
LOC: NCHCN 15:43
PROVIDERS: PCP Nurse Practitioner Family; Visit Provider Nurse Practitioner Family
DX: E03.9 Hypothyroidism, unspecified (principal)
CPT/HCPCS: 80076; 86704; 86709; 86803; 87340; 84443

== ENCOUNTER 2023-07-01 09:41 | Emergency (ER) | payer MEDICARE, SELFPAY ==
[2023-07-01 09:48] VITALS: BP 118/55; PULSE 87; RESP 14; TEMP 37.1; O2SAT 96
--- NOTE | 2023-07-01 10:39 | DI.RAD_ITS ---
Exam(s) XR KNEE LT 3V AP,LAT,PRISCILLA EXAM: XR KNEE LT 3V AP,LAT,PRISCILLA CLINICAL HISTORY: pain. TECHNIQUE: 2D digital imaging was performed of the left knee. Three images were obtained. AP, late ral and PA tunnel views were obtained. COMPARISON: No exams were available for comparison FINDINGS: BONES: No acute fracture is present. No bony destructive lesion is seen. There is an old well cortic ated small bony density at the tip of the head of the fibula. JOINTS: The knee is normally aligned. There is a small joint effusion. No loose body. SOFT TISSUE: Vascular calcifications are present. IMPRESSION: 1. No acute fracture or dislocation. 2. Small joint effusion. DATA REPOSITORY: RADIATION DOSE DELIVERED:
--- NOTE | 2023-07-01 10:44 | DI.VRAD_ITS ---
PROCEDURE INFORMATION: Exam: XR Left Knee Exam date and time: 07/01/2023 10:33 AM Age: 78 years old Clinical indication: Other: Knee pain TECHNIQUE: Imaging protocol: Radiologic exam of the left knee. Views: 3 views. COMPARISON: No relevant prior studies available. FINDINGS: Bones/joints: There is a small knee joint effusion. No acute fracture or dislocation. No suspicious osseous lesion. Soft tissues: Normal. Vasculature: Vascular calcifications. IMPRESSION: Small knee joint effusion. No acute fracture or dislocation. Dictated and Authenticated by: Miguel Ángel Castillo MD. Ordering:MINNIE Shah MD
--- NOTE | 2023-07-01 10:44 | W.ED.GENAD ---
HPI General Mode of arrival: ambulatory. Date/Time Provider Initiated Documentation: 07/01/23 09:42. Limitations to Documentation: no limitations. Information obtained by: patient, family and RN notes reviewed. History of Present Illness 78 year old F presents to the emergency department with the chief complaint of left knee pain , described as moderate, and is localized to the left and lower extremity. Patient reports no radiation. Patient started experiencing this month(s) (1) and it has been constant. No relieving factors improve symptom(s), No exacerbating factors reported . Patient notes no other symptoms.. Patient did receive the following treatments prior to arrival, NSAID Related Data Home Medications Medication Instructions Recorded Confirmed hydrocortisone 2.5 % topical cream 30 gm RC Q4H PRN ##1 10/18/13 07/01/23 with perineal applicator (Anusol-HC) simvastatin 20 mg tablet 20 mg PO DAILY 04/02/17 07/01/23 aspirin 81 mg tablet,delayed 81 mg PO DAILY 05/13/19 07/01/23 release (Adult Aspirin Regimen) levothyroxine 50 mcg capsule 50 mcg PO DAILY 05/13/19 07/01/23 hydroxyurea 500 mg capsule 500 mg PO DAILY 12/18/20 07/01/23 acetaminophen 500 mg capsule 1,000 mg (2 x 500 mg) PO Q8H PRN 01/19/21 07/01/23 PRN #90 caps ibuprofen 600 mg tablet 600 mg PO TID PRN pain #30 tabs 01/19/21 07/01/23 cholecalciferol (vitamin D3) 25 25 mcg PO DAILY 10/20/22 07/01/23 mcg (1,000 unit) capsule albuterol sulfate 90 mcg/actuation 2 puff inhalation Q6H PRN 12/13/22 07/01/23 aerosol inhaler (Ventolin HFA) shortness of breath or wheezing #8.5 grams Previous Rx's Medication Instructions Recorded acetaminophen 500 mg capsule 1,000 mg (2 x 500 mg) PO Q8H PRN 01/19/21 PRN #90 caps ibuprofen 600 mg tablet 600 mg PO TID PRN pain #30 tabs 01/19/21 albuterol sulfate 90 mcg/actuation 2 puff inhalation Q6H PRN 12/13/22 aerosol inhaler (Ventolin HFA) shortness of breath or wheezing #8.5 grams Allergies Allergy/AdvReac Type Severity Reaction Status Date / Time cockroach Allergy Mild Skin Rash Verified 07/01/23 10:02 Penicillins Allergy Skin Rash Verified 07/01/23 10:02 dust,molds Allergy Intermediate Wheezing Uncoded 07/01/23 10:02 cats Allergy Mild Other (See Uncoded 07/01/23 10:02 Comment) General Stated Complaint: Orthopedic SAMARA: 3 Review of Systems Constitutional Constitutional: Denies chills, Denies fever(s) and Denies night sweats Cardiovascular Cardiovascular: Denies chest pain, Denies edema and Denies dyspnea Respiratory Respiratory: Denies dyspnea Musculoskeletal Musculoskeletal: Reports as per HPI, Reports deformity, Reports arthralgias, Reports joint swelling, Denies limited range of motion, Denies numbness, Reports stiffness and Denies tingling Neurologic Neurologic: Denies numbness and Denies tingling Exam Const General: cooperative, no acute distress and not ill appearing Orientation: alert, awake and oriented x3 HENMT Mouth: moist mucous membranes Resp Effort & Inspection: normal respiratory effort, able to speak in complete sentences and no respiratory distress Cardio Rate: regular rate Rhythm: regular rhythm Pulses: normal peripheral pulses Skin General skin exam: no rashes or lesions noted Neuro General: patient alert, patient awake, patient oriented x3, moves all extremities and no focal motor deficits Sensory Exam: no sensory deficits noted Extrem Right lower extremity: no joint enlargement Left lower extremity: no joint enlargement, knee Details: normal to inspection, tenderness Location: of the medial joint line, normal ROM and knee ligament exam normal; no abrasions, no lacerations, no ecchymosis and no crepitus and foot Details: vascular exam Details: dorsalis pedis pulse present, posterior tibial pulse present and normal capillary refill Course Vital Signs Vital signs: Vital Signs Temperature 37.1 C 07/01/23 09:48 Pulse 87 07/01/23 09:48 Respiratory Rate 14 07/01/23 09:48 Blood Pressure 118/55 L 07/01/23 09:48 Pulse Oximetry 96 07/01/23 09:48 Temperature 37.1 C 07/01/23 09:48 Temperature Source Temporal Artery Scan 07/01/23 09:48 Pulse 87 07/01/23 09:48 Respiratory Rate 14 07/01/23 09:48 Respiratory Effort Normal 07/01/23 09:55 Blood Pressure 118/55 L 07/01/23 09:48 Blood Pressure Position Sitting 07/01/23 09:48 Pulse Oximetry 96 07/01/23 09:48 Oxygen Delivery Method Room Air 07/01/23 09:48 Oxygen Flow Rate 0 07/01/23 09:48 Pain Level 10 07/01/23 09:48 Medical Decision Making Patient presenting to the emergency department for chief complaint of left knee pain. She reports this has been going on gradually for the last month but then today when she woke up had more significant pain. She does state mild right knee pain but states it is very minimal and not concerning at this point. Patient denies any known injury or trauma causing the event, denies fever chills, denies other joint involvement. Does state significant past medical history of arthritis otherwise no other significant contributing past medical history. Physical exam shows medial tenderness to palpation of the joint, no ligamentous tenderness or laxity, no crepitus, joint is not erythematous or warm to touch, and appearance is the same bilateral with both having some slight swelling but nothing significantly difference between the 2 at this time. Patient does report some calf tenderness and some medial thigh tenderness. These areas were palpated does not seem clinically consistent with DVT but will perform labs including D-dimer along with x-ray imaging. Patient had taken pain medication prior to arrival so we will just monitor. Reviewed radiological imaging that shows a small effusion otherwise no other emergent findings noted. Patient's CBC was nondiagnostic, CMP shows slightly low potassium at 3.4 which we will recommend dietary increase, otherwise nondiagnostic labs. D-dimer was 566 and age adjusted considered negative. Patient is able to ambulate so I do not feel that any further imaging is needed but will have patient continue [id number] medications, will use supportive brace or Shravan wrap, and have patient continue use of cane along with follow-up to primary care provider for reassessment in the next 2 weeks to ensure she is having improvement or to develop long-term plan. After discussion of diagnosis and plan of care patient has no further needs, questions, or concerns and states clear understanding to return to the emergency department for any worsening symptoms. This documentation was generated using [employer] system, please disregard any oddities of phrase or misspellings. Imaging Data Radiologic Study: Imaging: X-Ray Radiologist's impression: Exam(s) XR KNEE LT 3V AP,LAT,PRISCILLA EXAM: XR KNEE LT 3V AP,LAT,PRISCILLA CLINICAL HISTORY: pain. TECHNIQUE: 2D digital imaging was performed of the left knee. Three images were obtained. AP, lateral and PA tunnel views were obtained. COMPARISON: No exams were available for comparison FINDINGS: BONES: No acute fracture is present. No bony destructive lesion is seen. There is an old well corticated small bony density at the tip of the head of the fibula. JOINTS: The knee is normally aligned. There is a small joint effusion. No loose body. SOFT TISSUE: Vascular calcifications are present. IMPRESSION: 1. No acute fracture or dislocation. 2. Small joint effusion. Lab Data Lab results reviewed: Yes I reviewed the patient's lab results. Quality:SDOH Health Related Social Needs: No Data to Display PFSH All Active Problems (Updated 07/01/23 @ 11:42 by Pablo Acosta NP) Arthralgia of knee, left (Acute) Hiatal hernia (Chronic) Bronchiectasis (Acute) Exertional shortness of breath (Acute) since covid19 Snoring (Acute) Stress (Acute) family Essential thrombocythemia (Acute) Osteoporosis (Chronic) Hypertensive disorder (Chronic) Trigger thumb, right thumb (Acute) Trigger finger, left ring finger (Acute) S/P Release: 01/19/2021 Post-nasal drip (Acute) Chronic rhinitis (Acute) Allergic rhinitis due to dust mite (Acute) Allergic rhinitis due to allergen (Acute) Lump on finger (Acute) Left thumb Trigger thumb, left thumb (Acute) 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 Had to have Barium enema done Oophrectomy, Right (~1994) Hydrosalpinx Oophrectomy, Left (~1974) cyst Abdominal hysterectomy (~1979) for bleeding Family History Brother Colon cancer Maternal Uncle Colon cancer Social History Smoking/Tobacco Use Status: Former Tobacco Use Pack-years: 30 Smoking risk assessment performed?: Yes Alcohol Intake: current Alcohol Intake frequency: holidays/special occasions only Alcohol type: wine Drug use: Never Substance use type: does not use Housing: house Do you feel safe at home: Yes Do you feel safe in your relationship?: Yes Additional Social history: Quit 20-25years ago. Discharge Plan Disposition Patient Disposition: Home Discharge Details Clinical Impression: Arthralgia of knee, left Primary Care Provider: Joie Jiang ED Provider: aPblo Acosta Home Meds and New Rx's Prescriptions: Continued hydroxyurea 500 mg capsule 500 mg PO DAILY albuterol sulfate [Ventolin HFA] 90 mcg/actuation HFA aerosol inhaler 2 puff inhalation Q6H PRN (Reason: shortness of breath or wheezing) Qty: 8.5 8RF Rx Instructions: Use prior to exercise and as needed hydrocortisone [Anusol-HC] 30 GM cream with perineal applicator 30 gm RC Q4H PRN Qty: 1 levothyroxine 50 mcg capsule 50 mcg PO DAILY aspirin [Adult Aspirin Regimen] 81 mg tablet,delayed release (DR/EC) 81 mg PO DAILY cholecalciferol (vitamin D3) 25 mcg (1,000 unit) capsule 25 mcg PO DAILY simvastatin 20 MG tablet 20 mg PO DAILY acetaminophen 500 mg capsule 1,000 mg PO Q8H PRN PRNQty: 90 0RF ibuprofen 600 mg tablet 600 mg PO TID PRN (Reason: pain) Qty: 30 0RF Hold Instructions: Now having abdominal pain due to potential irritant Discharge Instructions Instructions: Knee Pain (ED) Additional Instructions: You may continue to use [id number] pain medication as needed for discomfort. Your potassium was slightly low so please increase potassium via your diet. You may continue activity as tolerated but use cane for stability. You may also continue use of Shravan wrap or [id number] brace if you choose to purchase one for support of the knee joint. Please return to the emergency department immediately for any new or significant worsening of symptoms otherwise follow-up with your primary care provider for reassessment as needed Referrals: Joie Jiang [Primary Care Provider] - 2 weeks Discharge Data Discharge Date/Time-TO BE ENTERED AT DEPARTURE: 07/01/23 11:51
[2023-07-01 10:57] LABS: Abs Immature Grans 0.02 10^3/uL (0.0-0.06); Absolute Basophil Count 0.05 10^3/uL (0.0-0.2); Absolute Eosinophil Count 0.15 10^3/uL (0.0-0.7); Absolute Lymphocyte Count 1.56 10^3/uL (1.2-3.4); Absolute Monocyte Count 0.67 10^3/uL (0.1-0.8); Absolute Neutrophil Count 4.35 10^3/uL (1.2-6.7); Basophils % 0.7; Eosinophils % 2.2; HCT 40.3 % (36.0-46.0); HGB 13.7 g/dL (11.2-15.7); Immature Grans % 0.3; Lymphocytes % 22.9; MCH 33.8 pg (27.0-33.0); MCV 100 fL (80-95); MPV 9.2 fL (8.0-11.0); Monocytes % 9.9; Platelet Count 304 10^3/uL (130-400); RBC 4.05 10^6/uL (3.93-5.22); RDW 12.8 % (11.7-14.6); RDW-SD 47.1 fL
[2023-07-01 11:19] LABS: ALT 97 U/L (14-59); AST 76 U/L (15-37); Albumin 3.8 g/dL (3.4-5.0); Alkaline Phosphatase 80 U/L (46-116); Anion Gap 12.1 mmol/L (3-11); BUN 26 mg/dL (7-18); Bilirubin, Total 0.7 mg/dL (0.2-1.0); CO2 23.9 mmol/L (21.0-32.0); CREATININE 0.9 mg/dL (0.55-1.02); Calcium 8.9 mg/dL (8.5-10.1); Chloride 104 mmol/L (98-107); Estimated GFR 64.63 (mL/min/1.73m2); Glucose 87 mg/dL (74-106); Potassium 3.4 mmol/L (3.5-5.1); Sodium 140 mmol/L (136-145); Total Protein 7.6 g/dL (6.4-8.2)
[2023-07-01 11:28] LABS: D-Dimer 566 ng/mlFEU (<500)
--- NOTE | 2023-07-01 11:40 | NUR.NOTE ---
Referral faxed to PCP for reassessment knee pain, within 2 weeks. Nursing Note:
== END 2023-07-01 11:51 | disposition home or self-care (01) ==
PROVIDERS: Emergency Provider Nurse Practitioner Family; PCP Nurse Practitioner Family
DX: E87.6 Hypokalemia (principal); M25.562 Pain in left knee
CPT/HCPCS: 73562; 80053; 99283; 85025; 85379

== ENCOUNTER → 2023-07-28 08:27 | Outpatient (BNVA) | payer MEDICARE, SELFPAY | PROVIDERS: PCP Nurse Practitioner Family; Referring Provider Nurse Practitioner Family; Visit Provider Physician Assistant | DX: M17.12 Unilateral primary osteoarthritis, left knee (principal); M70.52 Other bursitis of knee, left knee | CPT/HCPCS: 20610; J1040 ==

== ENCOUNTER 2023-08-02 13:22 | Outpatient (REF) | payer MEDICARE, SELFPAY ==
[2023-08-04 10:43] LABS: Lyme Ab w Rflx to Lyme Confirm Negative (Negative)
[2023-08-05 23:08] LABS: Anaplasma phagocytophilum Negative (Negative); B. miyamotoi PCR Negative (Negative); Babesia divergens/MO-1 Negative (Negative); Babesia duncani Negative (Negative); Babesia microti Negative (Negative); Ehrlichia chaffeensis Negative (Negative); Ehrlichia ewingii/canis Negative (Negative); Ehrlichia muris eauclairensis Negative (Negative)
== END 2023-08-02 13:23 | disposition home or self-care (01) ==
LOC: NCHCN 13:22
PROVIDERS: PCP Nurse Practitioner Family; Visit Provider Nurse Practitioner Family
DX: M25.59 Pain in other specified joint (principal)
CPT/HCPCS: 87798; 86618

== ENCOUNTER 2023-08-21 13:11 | Outpatient (REF) | payer MEDICARE, SELFPAY ==
[2023-08-21 21:33] LABS: Abs Immature Grans 0.02 10^3/uL (0.0-0.06); Absolute Basophil Count 0.04 10^3/uL (0.0-0.2); Absolute Lymphocyte Count 1.59 10^3/uL (1.2-3.4); Absolute Monocyte Count 0.64 10^3/uL (0.1-0.8); Absolute Neutrophil Count 3.58 10^3/uL (1.2-6.7); Basophils % 0.7; Eosinophils % 3.3; HCT 39.2 % (36.0-46.0); Immature Grans % 0.3; Lymphocytes % 26.2; MCH 34.1 pg (27.0-33.0); MCHC 33.2 % (32.0-36.0); MCV 103 fL (80-95); MPV 9.4 fL (8.0-11.0); Monocytes % 10.5; Platelet Count 379 10^3/uL (130-400); RBC 3.81 10^6/uL (3.93-5.22); RDW 13.3 % (11.7-14.6); RDW-SD 50.4 fL; WBC 6.07 10^3/uL (4.4-10.8)
[2023-08-21 21:46] LABS: INR 0.9 (0.9-1.1); Prothrombin Time 9.4 sec (9.1-11.1)
[2023-08-21 21:47] LABS: ALT 42 U/L (14-59); AST 28 U/L (15-37); Albumin 3.6 g/dL (3.4-5.0); Alkaline Phosphatase 87 U/L (46-116); Anion Gap 10.8 mmol/L (3-11); BUN 29 mg/dL (7-18); Bilirubin, Total 0.5 mg/dL (0.2-1.0); CO2 26.2 mmol/L (21.0-32.0); Calcium 9.1 mg/dL (8.5-10.1); Chloride 107 mmol/L (98-107); Estimated GFR 56.95 (mL/min/1.73m2); Glucose 72 mg/dL (74-106); Potassium 4.4 mmol/L (3.5-5.1); Sodium 144 mmol/L (136-145)
[2023-08-21 22:06] LABS: D-Dimer 740 ng/mlFEU (<500)
== END 2023-08-21 13:12 | disposition home or self-care (01) ==
LOC: NCHCN 13:11
PROVIDERS: PCP Nurse Practitioner Family; Visit Provider Nurse Practitioner Family
DX: R79.89 Other specified abnormal findings of blood chemistry (principal)
CPT/HCPCS: 80053; 85025; 85379; 85610

== ENCOUNTER → 2023-08-22 10:50 | Outpatient (CLI) | payer MEDICARE, SELFPAY ==
--- NOTE | 2023-08-22 | DI.US_ITS ---
Exam(s) US LOWER EXTREMITY VENOUS LT EXAM: US LOWER EXTREMITY VENOUS LT CLINICAL HISTORY: M79.662 pain left lower leg, Left calf pain with Ddimer of 740. TECHNIQUE: Lower extremity venous ultrasound performed using grayscale, color-flow, and spectral Do ppler analysis. COMPARISON: No exams were available for comparison FINDINGS: The common femoral, femoral and popliteal veins demonstrate normal compressibility, augmentation, and color Doppler. The posterior tibial veins are patent. No saphenous vein thrombosis or other superfi cial venous thrombosis is seen. No hematoma or Richards's cyst is seen. IMPRESSION: Negative lower extremity ultrasound. No evidence of DVT. DATA REPOSITORY:
== END ==
PROVIDERS: PCP Nurse Practitioner Family; Visit Provider Nurse Practitioner Family
DX: M79.662 Pain in left lower leg (principal); R79.1 Abnormal coagulation profile
CPT/HCPCS: 93971

== ENCOUNTER 2023-10-17 12:17 | Outpatient (REF) | payer MEDICARE, SELFPAY ==
[2023-10-17 15:28] LABS: Abs Immature Grans 0.01 10^3/uL (0.0-0.06); Absolute Basophil Count 0.04 10^3/uL (0.0-0.2); Absolute Eosinophil Count 0.17 10^3/uL (0.0-0.7); Absolute Lymphocyte Count 1.34 10^3/uL (1.2-3.4); Absolute Monocyte Count 0.53 10^3/uL (0.1-0.8); Absolute Neutrophil Count 3.54 10^3/uL (1.2-6.7); Basophils % 0.7 %; HCT 38.1 % (36.0-46.0); HGB 12.7 g/dL (11.2-15.7); Immature Grans % 0.2 %; Lymphocytes % 23.8 %; MCH 33.4 pg (27.0-33.0); MCHC 33.3 % (32.0-36.0); MCV 100 fL (80-95); MPV 9.7 fL (8.0-11.0); Monocytes % 9.4 %; Neutrophils % 62.9 %; Platelet Count 348 10^3/uL (130-400); RDW 13.4 % (11.7-14.6); RDW-SD 49.7 fL; WBC 5.63 10^3/uL (4.4-10.8)
[2023-10-17 15:48] LABS: ALT 49 U/L (14-59); AST 33 U/L (15-37); Albumin 3.7 g/dL (3.4-5.0); Alkaline Phosphatase 82 U/L (46-116); Anion Gap 7.6 mmol/L (3-11); BUN 28 mg/dL (7-18); Bilirubin, Total 0.4 mg/dL (0.2-1.0); CO2 28.4 mmol/L (21.0-32.0); CREATININE 0.9 mg/dL (0.55-1.02); Calcium 8.7 mg/dL (8.5-10.1); Chloride 107 mmol/L (98-107); Estimated GFR 64.63 (mL/min/1.73m2); Glucose 95 mg/dL (74-106); Potassium 4.1 mmol/L (3.5-5.1); Sodium 143 mmol/L (136-145); TSH 2.98 uIU/Ml (0.36-3.74); Total Protein 6.9 g/dL (6.4-8.2)
== END 2023-10-17 12:18 | disposition home or self-care (01) ==
LOC: NCHCN 12:17
PROVIDERS: PCP Nurse Practitioner Family; Visit Provider Nurse Practitioner Family
DX: R79.89 Other specified abnormal findings of blood chemistry (principal); E03.9 Hypothyroidism, unspecified; K76.0 Fatty (change of) liver, not elsewhere classified
CPT/HCPCS: 80053; 84443; 85025; 85610; 85611

== ENCOUNTER 2023-10-25 11:45 | Outpatient (CLI) | payer MEDICARE, SELFPAY | END 2023-10-25 11:46 | disposition home or self-care (01) | LOC: LBO 11:45 | PROVIDERS: PCP Nurse Practitioner Family; Visit Provider Nurse Practitioner Family | DX: R79.89 Other specified abnormal findings of blood chemistry (principal) | CPT/HCPCS: 36415; 85610 ==

== ENCOUNTER → 2023-11-13 08:23 | Outpatient (BNVA) | payer MEDICARE, SELFPAY | PROVIDERS: PCP Nurse Practitioner Family; Referring Provider Nurse Practitioner Family | DX: M95.8 Other specified acquired deformities of musculoskeletal system (principal); M17.12 Unilateral primary osteoarthritis, left knee | CPT/HCPCS: 99213 ==

== ENCOUNTER 2023-12-14 03:56 | Outpatient (CLI) | payer MEDICARE, SELFPAY ==
[2023-12-14 11:14] LABS: HCT 42.1 % (36.0-46.0); HGB 13.9 g/dL (11.2-15.7); MCH 33.3 pg (27.0-33.0); MCV 101 fL (80-95); MPV 9.2 fL (8.0-11.0); Platelet Count 437 10^3/uL (130-400); RBC 4.17 10^6/uL (3.93-5.22); RDW 13.1 % (11.7-14.6); WBC 7.58 10^3/uL (4.4-10.8)
[2023-12-14 11:51] LABS: Anion Gap 10.4 mmol/L (3-11); BUN 23 mg/dL (7-18); CO2 28.6 mmol/L (21.0-32.0); CREATININE 0.9 mg/dL (0.55-1.02); Calcium 9.5 mg/dL (8.5-10.1); Chloride 106 mmol/L (98-107); Estimated GFR 64.63 (mL/min/1.73m2); Glucose 84 mg/dL (74-106); Potassium 3.8 mmol/L (3.5-5.1); Sodium 145 mmol/L (136-145)
== END 2023-12-14 03:57 | disposition home or self-care (01) ==
LOC: LBO 03:56
PROVIDERS: PCP Nurse Practitioner Family; Visit Provider Student in an Organized Health Care Education/Training Program
DX: M17.12 Unilateral primary osteoarthritis, left knee (principal); Z01.818 Encounter for other preprocedural examination
CPT/HCPCS: 36415; 80048; 85027

== ENCOUNTER 2023-12-14 11:42 | Outpatient (CLI) | payer MEDICARE, SELFPAY ==
--- NOTE | 2023-12-14 09:45 | DI.RAD_ITS ---
Exam(s) XR STANDING ALIGNMENT EXAM: XR STANDING ALIGNMENT CLINICAL HISTORY: TKR Planning. TECHNIQUE: 2D digital imaging was performed. Standing AP views were performed from the pelvis throu gh the ankles. COMPARISON: CR,XR XR KNEE LT 3V AP,LAT,PRISCILLA from 07/01/2023 MR MRI, LOWER EXT. JOINT S/ CONTRA from 10/03/2023 FINDINGS: BONES: No acute fracture is present. No bony destructive lesion is seen. Leg length discrepancy: The right projects approximately 5 millimeters superior to the left. JOINTS: Knees: Osteochondral defect medial femoral. Joint spaces are maintained. Mild narrowing o f the medial femoral tibial joint space of the right knee. The ankle joints are unremarkable. The hip joints are unremarkable. SOFT TISSUE: Normal. IMPRESSION: Mild degenerative changes medial femoral tibial joint space of the right knee. Osteochondral defec t medial femoral condyle the left knee.. Mild overall leg length discrepancy. DATA REPOSITORY: RADIATION DOSE DELIVERED:
== END 2023-12-14 11:43 | disposition home or self-care (01) ==
LOC: DIORS 11:42
PROVIDERS: PCP Nurse Practitioner Family; Visit Provider Physician Assistant
DX: M17.12 Unilateral primary osteoarthritis, left knee (principal); Z01.818 Encounter for other preprocedural examination
CPT/HCPCS: 77073

== ENCOUNTER 2023-12-26 08:14 | Day surgery (SDC) | payer MEDICARE, SELFPAY ==
[2023-12-26] VITALS (35 sets, daily range): BP systolic 93–164; BP diastolic 41–95; PULSE 81–114; RESP 13–27; TEMP 36–36.7; O2SAT 82–98; BMI 27.9
--- NOTE | 2023-12-26 07:26 | DSE_ITS ---
Date of service: 12/26/23 Time of Service: 07:30 Discharge Plan Disposition Patient Disposition: Home Condition: Good Discharge Details Reason For Visit: Left knee DJD Attending Provider: Martell Gaitan Primary Care Provider: Joie Jiang Home Meds and New Rx's Prescriptions: New acetaminophen 500 mg tablet 1,000 mg PO Q8H PRN Qty: 90 0RF Rx Instructions: Take two tablets up to every 8 hours as needed for pain aspirin 81 mg tablet,delayed release (DR/EC) 81 mg PO BID 30 Days Qty: 60 0RF celecoxib [Celebrex] 200 mg capsule 200 mg PO BID PRNQty: 60 0RF Rx Instructions: Take one tablet twice daily for pain and inflammation docusate sodium [Colace] 100 mg capsule 100 mg PO BID Qty: 30 0RF pantoprazole 40 mg tablet,delayed release (DR/EC) 40 mg PO DAILY Qty: 14 0RF dexamethasone 4 mg tablet 4 mg PO DAILY Qty: 2 0RF Rx Instructions: Take one tablet once daily for two days gabapentin 300 mg capsule 300 mg PO QHS Qty: 14 0RF Rx Instructions: Take one tablet at bedtime Continued hydroxyurea 500 mg capsule 500 mg PO DAILY hydrocortisone [Anusol-HC] 30 GM cream with perineal applicator 30 gm RC Q4H PRN Qty: 1 levothyroxine 50 mcg capsule 50 mcg PO DAILY cholecalciferol (vitamin D3) 25 mcg (1,000 unit) capsule 25 mcg PO DAILY simvastatin 20 MG tablet 20 mg PO DAILY Discontinued aspirin [Adult Aspirin Regimen] 81 mg tablet,delayed release (DR/EC) 81 mg PO DAILY acetaminophen 500 mg capsule 1,000 mg PO Q8H PRN PRNQty: 90 0RF ibuprofen 600 mg tablet 600 mg PO TID PRN (Reason: pain) Qty: 30 0RF No Action oxycodone 5 mg tablet 5 mg PO Q6H MDD 4 tabs PRN (Reason: pain) Qty: 15 0RF Rx Instructions: Take one tablet up to every 6 hours as needed for severe postoperative pain Discharge Instructions Additional Instructions: Total Knee Discharge Instructions Activity: The most important activity is to walk and to work on gentle motion (both flexion and extension). You should try to take short walks a few times a day. It is important that when resting you work on keeping the knee straight. Avoid putting a pillow behind the knee as this will encourage flexion. Work on range of motion exercises as provided by Physical Therapy. - Start outpatient physical therapy within 2 weeks. - You should wear the BHANU hose on both legs for 2 weeks. You may remove these at night. You may also use any compression sock in place of the BHANU hose. - Utilize [employer] to review exercises, see videos on exercises and obtain basic information pertaining to your surgery and your recovery. Dressing: Remove the Shravan wrap by 2 days after your surgery and put on the BHANU stocking given to you from the hospital. Keep the surgical dressing (underneath the SHRAVAN wrap) in place for at least one week. After the first week it may be removed and replaced with light gauze and tape or nothing. The wound and dressing may get wet after 3 days but avoid soaking the dressing or otherwise it will need to be changed. Many people prefer covering the dressing with cling wrap (saran wrap) to minimize it from getting soaked. If it gets wet, just pat dry. If it starts to peel off then it will need to be changed. Medications: - You should take Tylenol and anti-inflammatory Celebrex as your primary pain control medications. If the Celebrex is too expensive or not covered, please call the office for another alternative (Advil/Ibuprofen or Naproxen/Aleve) - You have been prescribed a stronger pain medication Oxycodone for breakthrough pain, take as needed as prescribed. - You have also been prescribed a stomach acid reduction agent Pantoprozole to help reduce stomach acid and reflux. - You have been prescribed Gabapentin to take at night for restlessness and nerve pain. - You will be taking Aspirin 81mg twice a day for DVT prevention unless instructed otherwise. - You have also been prescribed Decadron to take to control post-operative nausea and pain. You will start this tomorrow. - If you have constipation you should take Colace (which has been prescribed) or Miralax (which is available [id number]). It takes most people 3-4 days to have a bowel movement. Follow-up: 2 weeks If you have any acute concerns or questions, please do not hesitate to contact the office at [phone]. You may contact Dr. Gaitan with any questions after hours through the hospital at [phone] or on his cell phone at [phone]. Stand Alone Forms: Anesthesia Discharge Inst., [place].Nerve Block Instructions, [facility] ([facility]) Referrals: Martell Gaitan MD [ [facility] STAFF PHYSICIAN] - 01/08/24 11:15 am Equipment/Supplies: Walker Activity:: Elevate Remove Dressings/Wound Care:: Do Not Remove Shower/Bathe:: Cover Diet:: As Tolerated Discharge Orders Discharge Orders: Discharge Order (Routine); Ordered 12/26/23 Ordered By: Adriana Ellis Discharge Data Discharge Date/Time-TO BE ENTERED AT DEPARTURE: 12/26/23 14:45 DS: Summary Time Spent with Patient providing and/or coordinating discharge services: Less than 30 minutes Status at Discharge Functional status at discharge: uses cane/walker Overall status at discharge: patient is progressing back to baseline Mental Status: mental status grossly normal Speech and Movement: speech and movement normal Mood: congruent mood Affect: normal affect Quality:SDOH Health Related Social Needs: No Data to Display Exam Psych Mental Status: mental status grossly normal Speech and Movement: speech and movement normal Mood: congruent mood Affect: normal affect PFSH All Active Problems (Updated 12/31/23 @ 11:11 by WM Salgado) Left leg swelling (Acute) Post-operative state (Acute) History of left knee replacement (Acute 12/26/23) Osteochondral defect of femoral condyle (Acute) Pes anserinus bursitis of left knee (Acute) Hiatal hernia (Chronic) Bronchiectasis (Acute) Exertional shortness of breath (Acute) since covid19 Snoring (Acute) Stress (Acute) family Essential thrombocythemia (Acute) Osteoporosis (Chronic) Hypertensive disorder (Chronic) Trigger thumb, right thumb (Acute) Trigger finger, left ring finger (Acute) S/P Release: 01/19/2021 Post-nasal drip (Acute) Chronic rhinitis (Acute) Allergic rhinitis due to dust mite (Acute) Allergic rhinitis due to allergen (Acute) Lump on finger (Acute) Left thumb Trigger thumb, left thumb (Acute) 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 Had to have Barium enema done Oophrectomy, Right (~1994) Hydrosalpinx Oophrectomy, Left (~1974) cyst Abdominal hysterectomy (~1979) for bleeding Family History Brother Colon cancer Maternal Uncle Colon cancer Social History Smoking/Tobacco Use Status: Former Tobacco Use Quit Date: 05/15/87 Pack-years: 30 Smoking risk assessment performed?: Yes Alcohol Intake: current Alcohol Intake frequency: holidays/special occasions only Alcohol type: wine Drug use: Never Substance use type: does not use Housing: house Do you feel safe at home: Yes Do you feel safe in your relationship?: Yes Time Spent with Patient Time Spent with Patient: <45 minutes Time was spent: preparing to see the patient(eg.review tests), obtaining and/or reviewing separately otained hiistory, indepentently interpreting results and counseling the patient
[2023-12-26] MEDS: Acetaminophen 500 MG TAB 1000 MG PO (09:00)
[2023-12-26] MEDS: Gabapentin 300 MG CAP PO (09:00)
[2023-12-26] MEDS: Celecoxib 200 MG CAP 400 MG PO (09:00)
[2023-12-26] MEDS: Lactated Ringers 1,000 ML 80 ML IV (09:10)
--- NOTE | 2023-12-26 09:13 | W.ANESPRE ---
General Info Date of Service Date Performed: 12/26/23 Height: 5 ft Weight: 64.864 kg Body Mass Index (BMI): 27.9 Surgical Procedure: Operation Date: 12/26/23 10:55 Proposed Procedure Side Surgeon p Knee Total Arthroplasty, Cementless CR Left Martell Gaitan MD Meds Allergies and Home Medications Allergies Allergy/AdvReac Type Severity Reaction Status Date / Time cockroach Allergy Mild Skin Rash Verified 12/26/23 08:38 Penicillins Allergy Skin Rash Verified 12/26/23 08:38 dust,molds Allergy Intermediate Wheezing Uncoded 12/26/23 08:38 cats Allergy Mild Other (See Uncoded 12/26/23 08:38 Comment) Home Medication ?Medication ?Instructions ?Recorded hydrocortisone 2.5 % topical cream 30 gm RC Q4H PRN ##1 10/18/13 with perineal applicator (Anusol-HC) simvastatin 20 mg tablet 20 mg PO DAILY 04/02/17 levothyroxine 50 mcg capsule 50 mcg PO DAILY 05/13/19 hydroxyurea 500 mg capsule 500 mg PO DAILY 12/18/20 cholecalciferol (vitamin D3) 25 25 mcg PO DAILY 10/20/22 mcg (1,000 unit) capsule acetaminophen 500 mg tablet 1,000 mg (2 x 500 mg) PO Q8H PRN 12/26/23 pain #90 tabs aspirin 81 mg tablet,delayed 81 mg PO BID 30 days #60 tabs 12/26/23 release celecoxib 200 mg capsule (Celebrex) 200 mg PO BID PRN #60 caps 12/26/23 dexamethasone 4 mg tablet 4 mg PO DAILY #2 tabs 12/26/23 docusate sodium 100 mg capsule 100 mg PO BID #30 caps 12/26/23 (Colace) gabapentin 300 mg capsule 300 mg PO QHS #14 caps 12/26/23 oxycodone 5 mg tablet 5 mg PO Q4H PRN #18 tabs 12/26/23 pantoprazole 40 mg tablet,delayed 40 mg PO DAILY #14 tabs 12/26/23 release Current Visit Medications: Current Medications Generic Name Dose Route Start Last Admin Trade Name Freq PRN Reason Stop Dose Admin Acetaminophen 1,000 mg 12/26/23 06:00 12/26/23 09:00 Acetaminophen 500 Mg Tab PO 12/26/23 23:59 1,000 mg PREOP JAYNA Administration Celecoxib 400 mg 12/26/23 06:00 12/26/23 09:00 Celecoxib 200 Mg Cap PO 12/26/23 23:59 400 mg PREOP JAYNA Administration Gabapentin 300 mg 12/26/23 06:00 12/26/23 09:00 Gabapentin 300 Mg Cap PO 12/26/23 23:59 300 mg PREOP JAYNA Administration Hydromorphone HCl 0.5 mg 12/26/23 07:25 Hydromorphone 2 Mg/Ml Syr IVP 01/25/24 07:24 Q2H PRN PRN Ringer's Solution 1,000 mls @ 80 mls/hr 12/26/23 06:00 IV 12/26/23 23:59 INFUSION JAYNA Cefazolin Sodium/Dextrose 2 gm in 50 mls @ 100 mls/hr 12/26/23 06:00 Ancef Duplex IVPB 12/26/23 23:59 PREOP JAYNA Tranexamic Acid/Sodium Chloride 1,000 mg in 100 mls @ 600 mls/hr 12/26/23 06:00 IVPB 12/26/23 23:59 PREOP JAYNA Cefazolin Sodium/Dextrose 1 gm in 50 mls @ 100 mls/hr 12/26/23 08:00 Ancef Duplex IVPB 12/27/23 00:29 Q8H JAYNA IV Miscellaneous Supplies 1 each 12/26/23 06:00 Iv Access IV 12/26/23 23:59 DIRECTED JAYNA Oxycodone HCl 0 mg 12/26/23 07:25 Oxycodone 5 Mg Tab PO 01/25/24 07:24 Q3H PRN PRN Pain Sodium Chloride 0 ml 12/26/23 06:00 Normal Saline Flush 10 Ml Syr IV 12/26/23 23:59 PRN PRN Sodium Chloride 0 ml 12/26/23 06:00 Normal Saline 10 Ml Vial IJ 12/26/23 23:59 DIRECTED PRN Sterile Water 0 ml 12/26/23 06:00 Water,Injection,Sterile 10 Ml Vial IJ 12/26/23 23:59 DIRECTED PRN PFSH Active Problems Active Problems: Problem Status Onset Code Osteochondral defect of femoral condyle Acute M95.8 Pes anserinus bursitis of left knee Acute M70.52 Osteoarthritis of left knee Acute M17.12 Hiatal hernia Chronic K44.9 Bronchiectasis Acute J47.9 Exertional shortness of breath Acute R06.02 Snoring Acute R06.83 Stress Acute F43.9 Essential thrombocythemia Acute D47.3 Osteoporosis Chronic M81.0 Hypertensive disorder Chronic I10 Trigger thumb, right thumb Acute M65.311 Trigger finger, left ring finger Acute M65.342 Post-nasal drip Acute R09.82 Chronic rhinitis Acute J31.0 Allergic rhinitis due to dust mite Acute J30.89 Allergic rhinitis due to allergen Acute J30.9 Lump on finger Acute R22.30 Trigger thumb, left thumb Acute M65.312 Acquired absence of genital organs Acute 03/14/11 Z90.79 Medical History Medical History Diverticulosis GERD (gastroesophageal reflux disease) Myalgia Basal cell carcinoma of nose Hyperlipidemia Palpitations Erosive (osteo)arthritis Cough Dizzy spells Hypothyroid Heart murmur Surgical History Surgical History S/P colonoscopy 2007- incomplete. Had to have Barium enema done Oophrectomy, Right (~1994) Hydrosalpinx Oophrectomy, Left (~1974) cyst Abdominal hysterectomy (~1979) for bleeding Tobacco Smoking/Tobacco Use Status: Former Tobacco Use Alcohol Alcohol Intake: current Alcohol intake frequency: holidays/special occasions only Alcohol type: wine Substance Use Substance use: Never Substance use type: does not use Vital Signs and Lab Results Vital Signs Most Recent Vital Signs in EMR: Most Recent Vital Signs Temp Pulse Resp BP Pulse Ox 36.7 C 81 16 164/92 H 98 12/26/23 08:40 12/26/23 08:40 12/26/23 08:40 12/26/23 08:40 12/26/23 08:40 Lab Results Blood Type / Crossmatch: No Data to Display Complete Blood Count: White Blood Count 7.58 10^3/uL (4.4-10.8) 12/14/23 10:55 Red Blood Count 4.17 10^6/uL (3.93-5.22) 12/14/23 10:55 Hemoglobin 13.9 g/dL (11.2-15.7) 12/14/23 10:55 Hematocrit 42.1 % (36.0-46.0) 12/14/23 10:55 Platelet Count 437 10^3/uL (130-400) H 12/14/23 10:55 Complete Metabolic Panel: Sodium 145 mmol/L (136-145) 12/14/23 10:55 Potassium 3.8 mmol/L (3.5-5.1) 12/14/23 10:55 Chloride 106 mmol/L (98-107) 12/14/23 10:55 Carbon Dioxide 28.6 mmol/L (21.0-32.0) 12/14/23 10:55 BUN 23 mg/dL (7-18) H 12/14/23 10:55 Creatinine 0.9 mg/dL (0.55-1.02) 12/14/23 10:55 Est GFR (CKD-EPI 2020) 64.63 (mL/min/1.73m2) 12/14/23 10:55 Calcium 9.5 mg/dL (8.5-10.1) 12/14/23 10:55 Glucose 84 mg/dL (74-106) 12/14/23 10:55 Liver Function Panel: No Data to Display Coagulation Panel: No Data to Display Cardiac Panel: No Data to Display Arterial Blood Gas: No Data to Display Venous Blood Gas: No Data to Display Pancreas Panel: No Data to Display Thyroid Panel: No Data to Display Infectious Disease: No Data to Display Blood Cultures: No Data to Display Toxicology Panel: No Data to Display Anesthesia Assessment and Plan Anesthesia History Personal History: No History of Anesthesia Complications Family History: No Family History of Anesthesia Complications Exercise Tolerance Exercise Tolerance: Metabolic Equivalents>4 Pertinent Negatives Pertinent Negatives: No Symptoms of GERD Cardiac & Pulmonary Exam Cardiac Exam: Normal S1/S2 Heart Sounds Pulmonary Exam: Clear Bilateral Breath Sounds Implantable Cardiac Device Does patient have a Pacemaker or an ICD?: No Airway Exam Known Difficult Airway: No Mallampati Class: 2 Mouth Opening: Normal (> 3cm) Thyromental Distance: Greater than 3 cm Neck Range of Motion: Full ROM Neck Circumference: Normal Teeth Condition: Normal Dentition ASA Classification ASA Score: ASA 3 Emergency Case?: No NPO Status NPO Status: NPO Clears >2 hours, Solids >8 hours Anesthesia Plan Resuscitation Status: Full Code Anesthesia Technique: Spinal Anesthesia Airway Planned: Natural Airway Pain Management: Surgeon and patient request nerve block Monitors Used: Standard Monitors
--- NOTE | 2023-12-26 09:49 | W.ANESNERVE ---
Nerve Block Single Injection Procedure Date and Time Date Performed: 12/26/23 Procedure Start: 13:08 Location Where Procedure Performed Procedure Location: Day Surgery Unit Reason Performed: Postoperative Analgesia Requesting Provider: Martell Gaitan Timeout Performed Timeout Performed: Yes Monitoring Used ECG, Blood Pressure, SpO2, ETCO2 and See EMR for corresponding vital signs Sterility Sterility: Hand Hygiene, Surgical Cap, Surgical Mask, Sterile Gloves, Sterile Drape/Sheet, Eye Protection and Chlorhexidine Sedation Given During Procedure Sedation Given (Indicate Dose Given): Versed IV Dose:: 2mg IVP Patient Mental Status Patient Mental Status: Sedate with meaningful communication Nerve Block 1st Nerve Block: Laterality: Left Block Type: Adductor Canal Ultrasound Image Saved?: Yes Needle / Catheter Used: 100mm SonoPlex II Local Anesthetic Bolus (Indicate Dose Given): Lidocaine used for local infiltration of skin and Ropivacaine 0.5% Dose:: 20cc/0.5% (100mg) Additives (Indicate Dose Given): Epinephrine to make 1:200,000 (5mcg/ml) Dose:: 100mcg and Decadron Dose:: 10mg PF Ultrasound: Sterile probe cover and gel used Nerve Stimulator: Not Used Paresthesia: None Procedure Tolerated: No Complications and Patient tolerated well Procedure Outcome: Successful Performed By: Chico Lawrence
[2023-12-26] MEDS: ceFAZolin 2 GM/50 ML BAG IVPB (10:05)
[2023-12-26] MEDS: TRANEXAMIC ACID/SOD. CHL. 1,000 MG/100 ML BAG 600 MG IVPB (10:15)
--- NOTE | 2023-12-26 11:25 | W.PM.OP ---
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 Depuy Attune Cementless Cruciate Retaining Femoral Component, Size 3 2. Depuy Attune Cementless Fixed Bearing Tibial Component, Size 3 3. Depuy Attune 3x8 CR/FB Poly 4. Depuy Attune Patellar Component, Size 32 Indications: I have seen Evette in clinic for symptoms of knee arthritis, confirmed with radiographic findings. Evette has exhausted nonoperative methods and was having significant limitations in daily function and desired better function and less pain. I discussed the technical details of a knee replacement. I explained the risks of the procedure to include, but not limited to, bleeding, infection, pain, stiffness, fracture, damage to nerves and vessels, damage to muscles and tendons, loosening, need for repeat procedure, blood clot and cardiopulmonary demise. Despite these risks, Evette elected to proceed. Findings: There was notable chondromalacia and signs of arthritis with the medial compartment. After making the distal femoral cut it was obvious that there was a feature of osteonecrosis of the distal?medial femur. Procedure Description: Evette was greeted in the preoperative holding area where the correct side was identified and marked. The consent was reviewed with the patient and signed. The history and physical was updated. All questions were answered. Preoperative medications were administered: Acetaminophen 1000mg, Celebrex 400mg, and Gabapentin 300mg. An adductor canal block was then administered by the anesthesia team in the PACU. She was taken back to the operating room. A spinal anesthestic was then administered. The patient was placed into the supine position on the operating room table. A nonsterile tourniquet was placed high onto the leg but only used for cementing. Posts were placed for positioning during the procedure. All bony prominences were well padded. Prophylactic antibiotics in the form of Cefazolin were administered. 1g of Tranxemic Acid was given intravenously within 30 minutes of incision. The left leg was then prepped with Chloraprep and draped in a standard fashion with impervious stockinette. A second prep with Chloraprep was performed prior to application of Iodine impregnated skin protection. A timeout to confirm correct identity, side and site, procedure, allergies, anesthesia, and medical concerns was performed. With the knee in some flexion, a midline incision was made overlying the knee. Full thickness skin flaps were raised once the extensor mechanism was encountered. These were raised medially and laterally. Any bleeding was controlled with electrocautery. Once the extensor mechanism was fully exposed, a medial parapatellar arthrotomy was performed in a flexed position. All bleeding from the arthrotomy and the geniculate arteries was coagulated. A medial subperiosteal peel was performed with electrocautery to the midcoronal plane. The fat pad was removed while keeping the patellar tendon protected. The anterior distal femur synovium was removed for later visualization. The ACL and PCL were resected and the anterior horn of the lateral meniscus was transected. The knee was then flexed with the patella everted. Using a step drill, and based on preoperative templating, the femoral canal was entered. This was done with a step drill without any difficulty. The intramedullary distal femoral cut guide was inserted, set to a 5 degree valgus cut and 9mm cut thickness. The distal femoral cut guide was then held in position and pinned. With the soft tissues protected, the distal cut was performed. This was passed over a few times to ensure a planar cut. It was noted this time to have areas of what appear to be osteonecrosis about the distal aspect of the medial femur. I then turned attention to the tibia. The extramedullary guide was placed onto the leg. The distal aspect was slid medial to adjust for position of center of ankle and stay in line with shaft of the tibia. Approximately 5 degrees of posterior slope was kept in the proximal cutting guide. The center of the guide was aligned with the PCL. The stylus was used to assess cut thickness. The medial side, most involved side, was set for a 6mm cut. This was then held in position and pinned into place with 2 additional pins and a cross pin for stability. The medial and lateral collateral ligaments were protected and the cut was performed. With this completed, it was assessed and noted to be of appropriate dimensions. The guide was removed. A spacer block was inserted and the knee was brought into extension. The 8 mm spacer block provided full extension, without hyperextension and with stability of both the medial and lateral collateral ligaments was assessed. The pins from the femur and the tibia were then removed. The distal femur was then sized. The anterior stylus was placed onto the lateral ridge of the anterior femur. This indicated a size 3 femur. The external rotation of the guide was adjusted to 3 degrees to match the epicondylar axis, perpendicular to [place]?s line. The 4-in-1 cutting guide was the placed. The posterior medial femur cut was evaluated and appeared of good thickness. The spacer block was inserted underneath the cutting guide and stability was confirmed in 90 degrees of flexion. An carter wing was used to confirm appropriate position of the anterior cut to avoid notching. This cutting guide was ensured to be flush on the cut surface and then pinned into place with headed pins. While protecting the soft tissues, quad tendon, and collateral ligaments, the anterior and posterior cuts were performed with a saw. The central two pins were removed and the posterior and anterior chamfers were cut next. The notch-cutting guide was placed. This was pinned to lateralize the femoral component as much as possible while keeping it flush on the cut surface. This was then pinned into position. A reciprocating saw was used to make the notch cut. A rasp smoothed the cut surfaces. The medial and lateral menisci were removed. A trial femoral component was then inserted, impacted down to the cut surfaces, and the lug holes were drilled. A provisional trial tibial component was placed and the knee was brought through range of motion. There was noted to be excellent extension and flexion. There was no significant instability. The patella was tracking without thumbs. A size 8mm polyethylene component provided the best range of motion and stability with less than 2mm gapping with medial and lateral stress and full extension without significant hyperextension. The tibial cut surface was fully exposed. The tibia was then sized as a 3. The tibia had been previously marked during trialing to correspond to the center of the tibial component to help with rotation. The trial was aligned to this bekah, approximately rotated to the medial 1/3rd of the tibial tubercle. The trial was pinned into place. The tibia was prepared with a reamer and a keel punch and lug holes. The knee was then brought into extension and the patella was measured as 22mm. Using the patellar clamp and cut guide, this was resected to a flat surface with at least 13mm of thickness remaining. The size 32 patella fit the best. This was oriented and then clamped into position. The lugs were drilled. The trial components were removed. The final components were opened on the back table. The periosteal and capsular tissues, especially posteriorly, around the knee were then systematically injected with a periarticular cocktail consisting of 246mg of Ropivacaine, 0.5mg of Epinephrine, 0.08mg of Clonidine, and 30mg of Ketorolac, diluted to 100cc. On the back table, with the implants opened, the cement was mixed. One batch of high viscosity cement was prepared with vacuum assistance. After the cement was ready a small amount was placed on the cut surface of the patella and the patellar button was clamped into position and held. While the cement was hardening, the cementless knee components were placed. Starting with the tibial component, the tibia was subluxed anteriorly and the lug holes of the component were lined up. The tibia was then impacted with an impactor and mallet until the tibial component was in contact with the tibia. The final polyethylene component was inserted. Then, the femoral component was inserted. The lug holes were aligned and the component was impacted into position. The knee was irrigated with Surgiphor Betadine solution. This was allowed to sit in the knee for 3 minutes and then it was irrigated out with saline. After the cement had finally cured, approximately 15min, the clamp was removed from the patella and the knee was taken through range of motion. The patella was tracking with a no-thumbs technique. The capsule was then reapproximated with a No. 1 Vicryl at multiple locations. The capsule was finally closed with a No. 2 Stratafix, barbed suture. The second dosing of 1g TXA was started. Deep tissues were then reapproximated with 0 Vicryl and 2-0 Vicryl. The skin was closed with a running 3-0 Monocryl in a subcuticular fashion. This was reinforced with skin glue. A Mepilex silver dressing was applied along with a [id number] THERESE wrap. A CryoCuff was applied. Evette was transferred to the hospital bed without difficulty an suffering no apparent complication. Evette has a good prognosis. Physical therapy will start today and without restrictions, weight-bearing as tolerated. Aspirin 81mg BID will be used for DVT prophylaxis.
--- NOTE | 2023-12-26 13:25 | IN_ITS ---
PT Notes Visit Reasons: Left knee DJD Thank you for the opportunity to participate in the care of this patient. Please sign and return this page within 30 days if you agree with the above POC. Thank you! Physician Signature Date Physical Therapy Day Surgery Initial Evaluation Date: 12/26/2023 Referring Doctor: WM Key PT Orders: PT CONSULT: S/P Ortho Surgery Precautions: WBAT on the L LE with AD. 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 PMHX: Medical History Diverticulosis GERD (gastroesophageal reflux disease) Myalgia Basal cell carcinoma of nose Hyperlipidemia Palpitations Erosive (osteo)arthritis Cough Dizzy spells Hypothyroid Heart murmur Surgical History S/P colonoscopy 2006- incomplete. Had to have Barium enema done Oophrectomy, Right (~1994) HydrosalpinxOophrectomy, Left (~1974) cyst Abdominal hysterectomy (~1979) for bleeding Social History/Home Situation: Lives with of 63 years in a private home with 4 steps to enter with a rail on the left side and another flight of steps to the second floor where the bedroom is with rail a rail on one side and a wall on the other side. Has rand kids who live with them but work during the day. Did not use any assistive ambulatory device prior to surgery indoors, used single-point cane outdoors. Equipment Owned/DME: Single point cane Subjective: Feels sore in the back of her L knee with pain report at 3/10. Reported some mild dizziness at the start but subsided with walking. Objective: General Observation: THERESE wraps on L LE. Cryocuff to L knee. Arya present in room thorughout evaluation. Mental Status: A and O x 4 Pain: 3/10 on L popliteal area ROM: Right Lower Extremity: Hip flexion WFL. Hip abduction WFL. Knee flexion WFL. Ankle dorsiflexion WFL. Ankle plantarflexion WFL. Left Lower Extremity: Hip flexion WFL. Hip abduction WFL. Knee flexion 0-90 degrees. Knee extension 90-0 degrees. Ankle dorsiflexion WFL. Ankle plantarflexion WFL. Strength: Right Lower Extremity: Hip flexors 5/5. Hip abductors 5/5. Knee flexors 5/5. Knee extensors 5/5. Ankle dorsiflexors 5/5. Ankle plantarflexors 5/5. Left Lower Extremity:Hip flexors 4/5. Hip abductors 4/5. Knee flexors 3-/5. Knee extensors 3-/5. Ankle dorsiflexors 4-/5. Ankle plantarflexors 4-/5. Sensation: Intact as to pain and light pressure in B LE Bed Mobility/Transfers: Minimal cueing provided for use of B hands as needed for support, movement sequence, AD management, and posture to reduce fall risk and minimize pain report Supine to sit stand by assist Sit to stand contact guard assist with FWW Stand to sit stand by assist with FWW Bed to chair stand by assist with FWW Gait: Facilitated safe and correct performance of level surface ambulation of 150 feet using front-wheeled walker with reciprocal step through heel toe gati pattern with contact guard assist with minimal verbal cueing for limb advance ment, AD management, and optimal weight distribution to minimize fall risk and reduce pain report. Stairs: Guided patient with safe and correct negotiation of 3 x 4-inch steps and 2 x 6- inch steps while using a single point cane on the R and holding onto rail on the other side with cues given to increase flexion on the L knee during each ascent to minimize excessive hiking of the L hip. Contact guard assist provided. Balance: Static Sitting: Normal Dynamic Sitting: Normal Static Standing: Fair Dynamic Standing: Fair okay Special Tests: Mobility Limitations Standardized Measure [facility] AM-PAC 6 clicks Basic Mobility Inpatient Short Form: Raw Score: 21 CMS Score: 29% deficit Informed Consent/Education: Patient instructed in purpose of PT consult. Packet containing TKA exercise protocol has been given to patient. Education and training on initial set of exercises that can be done at home have been completed with patient. Trained patient with correct performance of exercises below to maximize motor control, joint flexibility, soft tissue extensibility of the L knee musculature: Access Code: [email or web address] URL: [email or web address] Date: 12/26/2023 Prepared by: Aisha Aguilera Exercises - Supine Quad Set - 1 x daily - 7 x weekly - 1 sets - 10 reps - 5 hold - Supine Heel Slide - 1 x daily - 7 x weekly - 1 sets - 10 reps - 5 hold - Supine Ankle Pumps - 1 x daily - 7 x weekly - 1 sets - 10 reps - 5 hold - Small Range Straight Leg Raise - 1 x daily - 7 x weekly - 1 sets - 10 reps - 5 hold - Seated March - 1 x daily - 7 x weekly - 1 sets - 10 reps - 5 hold Assessment: Patient requires a referral mobility ADL performance to maximize dependence and reduce fall risk. Patient presents with clinical signs and symptoms consistent with current/admitting diagnoses that have resulted to mobility limitations, gait instability, generalized weakness, and impairment of motor control as demonstrated by the following impairment level findings: 1. Decreased strength to left knee major muscle groups 2. Impaired standing balance 3. Limitation of joint range of motion in left knee Impairments are contributing to the following functional limitations: 1. Inability to safely ambulate without assistive device 2. Increase completion time for mobility ADL performance 3. Increased fall risk Patient is assessed as a 29549 moderate complexity based on the following: History: 78-year-old female with impairment level findings, functional limitations, and past medical history as indicated above Examination: Demonstrable impairment in strength, balance, and mobility level with underlying impairments and functional limitations as documented above Presentation: Evolving Decision Makin moderate complexity Goals: N/A. PT evaluation and 1-2 treatment sessions only for functional mobility training using recommended AD and for HEP instruction. Plan of Care/Treatment Plan: N/A. PT evaluation and 1-2 treatment session only for functional mobility training using recommended AD and for HEP instruction. DISCHARGE RECOMMENDATIONS: Home when medically cleared by orthopedic surgeon. Recommend outpatient PT services in order to optimize functional mobility outcomes and facilitate return to independent community ambulation without an assistive device. TREATMENT CODE/TIME: 21713 x 20 minutes for 1 unit, 9753 x 16 minutes for 1 unit (13:25?14:01). Aisha Aguilera PT, DPT, CLT [facility] [place], [place]
[2023-12-26] MEDS: oxyCODONE 5 MG TAB PO (13:33)
--- NOTE | 2023-12-26 14:49 | W.ANESPOSTOP ---
Postoperative Evaluation Date, Time and Location Date Performed: 12/26/23 Time Performed: 14:49 Patient Location: Day Surgery Unit Vital Signs Most Recent Imported Vital Signs: Most Recent Vital Signs Temp Pulse Resp BP Pulse Ox 36.4 C L 92 H 20 118/62 98 12/26/23 13:05 12/26/23 13:05 12/26/23 13:05 12/26/23 13:05 12/26/23 13:05 Pain Score Most Recent Pain Score: Most Recent Pain Score Pain Level 0 12/26/23 13:05 Assessment Mental Status: Awake (Alert & Oriented to Patient Baseline) Airway and Respiratory Function: Patent airway with normal (patient baseline) respiratory exam Cardiovascular Function: Hemodynamically Stable Hydration Status: Adequately Hydrated Nausea & Vomiting: No Nausea or Vomiting Pain: Pain is tolerable per patient Peripheral Nerve Block: Regional nerve block not resolved at time of post operative discharge
== END 2023-12-26 14:45 | disposition home or self-care (01) ==
LOC: SUR 08:15
PROVIDERS: PCP Nurse Practitioner Family; Visit Provider Student in an Organized Health Care Education/Training Program
PROC: (CPT 27447; principal; 2023-12-26 10:45)
DX: M17.12 Unilateral primary osteoarthritis, left knee (principal); M87.852 Other osteonecrosis, left femur; E78.5 Hyperlipidemia, unspecified; D47.3 Essential (hemorrhagic) thrombocythemia; E03.9 Hypothyroidism, unspecified; K21.9 Gastro-esophageal reflux disease without esophagitis; I10 Essential (primary) hypertension
CPT/HCPCS: 27447; 76942; 97162; 97530; C1776; J0171; J0690; J1100; J2001; J2250; J2371; J2401; J2405; J2704

== ENCOUNTER 2023-12-31 09:15 | Emergency (ER) | payer MEDICARE, SELFPAY ==
[2023-12-31 09:22] VITALS: BP 104/40; PULSE 85; RESP 16; TEMP 36.3; O2SAT 97
[2023-12-31 10:02] LABS: Abs Immature Grans 0.06 10^3/uL (0.0-0.06); Absolute Basophil Count 0.03 10^3/uL (0.0-0.2); Absolute Eosinophil Count 0.31 10^3/uL (0.0-0.7); Absolute Lymphocyte Count 1.99 10^3/uL (1.2-3.4); Absolute Monocyte Count 0.91 10^3/uL (0.1-0.8); Absolute Neutrophil Count 5.51 10^3/uL (1.2-6.7); Basophils % 0.3 %; Eosinophils % 3.5 %; HCT 33.5 % (36.0-46.0); HGB 10.9 g/dL (11.2-15.7); Immature Grans % 0.7 %; Lymphocytes % 22.6 %; MCH 33.1 pg (27.0-33.0); MCHC 32.5 % (32.0-36.0); MCV 102 fL (80-95); MPV 9.2 fL (8.0-11.0); Monocytes % 10.3 %; Neutrophils % 62.6 %; Platelet Count 341 10^3/uL (130-400); RBC 3.29 10^6/uL (3.93-5.22); RDW 13.5 % (11.7-14.6); RDW-SD 50.4 fL; WBC 8.81 10^3/uL (4.4-10.8)
[2023-12-31 10:18] LABS: ALT 29 U/L (14-59); AST 21 U/L (15-37); Albumin 3.4 g/dL (3.4-5.0); Alkaline Phosphatase 71 U/L (46-116); Anion Gap 9.6 mmol/L (3-11); BUN 26 mg/dL (7-18); Bilirubin, Total 0.95 mg/dL (0.2-1.0); CO2 25.4 mmol/L (21.0-32.0); CREATININE 0.9 mg/dL (0.55-1.02); Chloride 103 mmol/L (98-107); Estimated GFR 64.63 (mL/min/1.73m2); Glucose 88 mg/dL (74-106); Potassium 3.9 mmol/L (3.5-5.1); Sodium 138 mmol/L (136-145); Total Protein 7.1 g/dL (6.4-8.2)
[2023-12-31 10:51] VITALS: BP 132/67
--- NOTE | 2023-12-31 11:09 | ED.GENADUL_ITS ---
Discharge Plan Disposition Patient Disposition: Home Condition: Stable Discharge Details Clinical Impression: Post-operative state, Left leg swelling Primary Care Provider: Joie Jiang ED Provider: Lara Mansfield Home Meds and New Rx's Prescriptions: Continued hydroxyurea 500 mg capsule 500 mg PO DAILY hydrocortisone [Anusol-HC] 30 GM cream with perineal applicator 30 gm RC Q4H PRN Qty: 1 levothyroxine 50 mcg capsule 50 mcg PO DAILY cholecalciferol (vitamin D3) 25 mcg (1,000 unit) capsule 25 mcg PO DAILY simvastatin 20 MG tablet 20 mg PO DAILY acetaminophen 500 mg tablet 1,000 mg PO Q8H PRN Qty: 90 0RF Rx Instructions: Take two tablets up to every 8 hours as needed for pain aspirin 81 mg tablet,delayed release (DR/EC) 81 mg PO BID 30 Days Qty: 60 0RF celecoxib [Celebrex] 200 mg capsule 200 mg PO BID PRNQty: 60 0RF Rx Instructions: Take one tablet twice daily for pain and inflammation docusate sodium [Colace] 100 mg capsule 100 mg PO BID Qty: 30 0RF pantoprazole 40 mg tablet,delayed release (DR/EC) 40 mg PO DAILY Qty: 14 0RF dexamethasone 4 mg tablet 4 mg PO DAILY Qty: 2 0RF Rx Instructions: Take one tablet once daily for two days gabapentin 300 mg capsule 300 mg PO QHS Qty: 14 0RF Rx Instructions: Take one tablet at bedtime oxycodone 5 mg tablet 5 mg PO Q4H PRNQty: 18 0RF Rx Instructions: Take one tablet up to every 4 hours as needed for severe postoperative pain Discharge Instructions Additional Instructions: Continue to take your aspirin, elevate your legs and wear your compression stockings Call the office tomorrow to follow-up with Dr. Gaitan Low clinical suspicion for a deep vein thrombosis in your leg at this time Please return earlier should you have new or worsening complaints including chest pain, shortness of breath, worsening discomfort in your leg or fever Referrals: Joie Jiang [Primary Care Provider] - 2 days Discharge Data Discharge Date/Time-TO BE ENTERED AT DEPARTURE: 12/31/23 11:38 HPI General Date/Time Provider Initiated Documentation: 12/31/23 09:17 . HPI Narrative: Is 78-year-old female presents status post left knee replacement on Monday with Dr. Gaitan. She presents today secondary to increasing swelling and ecchymosis in her left upper thigh. She was told that she may have a DVT and sent to the emergency room to exclude this. She denies any chest pain or shortness of breath. She is taking a baby aspirin daily and denies any additional coagulopathy. She otherwise feels quite well and denies any significant increase in her discomfort. Related Data Home Medications ?Medication ?Instructions ?Recorded ?Confirmed hydrocortisone 2.5 % topical cream 30 gm RC Q4H PRN ##1 10/18/13 12/26/23 with perineal applicator (Anusol-HC) simvastatin 20 mg tablet 20 mg PO DAILY 04/02/17 12/26/23 levothyroxine 50 mcg capsule 50 mcg PO DAILY 05/13/19 12/26/23 hydroxyurea 500 mg capsule 500 mg PO DAILY 12/18/20 12/26/23 cholecalciferol (vitamin D3) 25 25 mcg PO DAILY 10/20/22 12/26/23 mcg (1,000 unit) capsule acetaminophen 500 mg tablet 1,000 mg (2 x 500 mg) PO Q8H PRN 12/26/23 pain #90 tabs aspirin 81 mg tablet,delayed 81 mg PO BID 30 days #60 tabs 12/26/23 release celecoxib 200 mg capsule (Celebrex) 200 mg PO BID PRN #60 caps 12/26/23 dexamethasone 4 mg tablet 4 mg PO DAILY #2 tabs 12/26/23 docusate sodium 100 mg capsule 100 mg PO BID #30 caps 12/26/23 (Colace) gabapentin 300 mg capsule 300 mg PO QHS #14 caps 12/26/23 oxycodone 5 mg tablet 5 mg PO Q4H PRN #18 tabs 12/26/23 pantoprazole 40 mg tablet,delayed 40 mg PO DAILY #14 tabs 12/26/23 release Previous Rx's ?Medication ?Instructions ?Recorded acetaminophen 500 mg tablet 1,000 mg (2 x 500 mg) PO Q8H PRN 12/26/23 pain #90 tabs aspirin 81 mg tablet,delayed 81 mg PO BID 30 days #60 tabs 12/26/23 release celecoxib 200 mg capsule (Celebrex) 200 mg PO BID PRN #60 caps 12/26/23 dexamethasone 4 mg tablet 4 mg PO DAILY #2 tabs 12/26/23 docusate sodium 100 mg capsule 100 mg PO BID #30 caps 12/26/23 (Colace) gabapentin 300 mg capsule 300 mg PO QHS #14 caps 12/26/23 oxycodone 5 mg tablet 5 mg PO Q4H PRN #18 tabs 12/26/23 pantoprazole 40 mg tablet,delayed 40 mg PO DAILY #14 tabs 12/26/23 release Allergies Allergy/AdvReac Type Severity Reaction Status Date / Time cockroach Allergy Mild Skin Rash Verified 12/26/23 08:38 Penicillins Allergy Skin Rash Verified 12/26/23 08:38 dust,molds Allergy Intermediate Wheezing Uncoded 12/26/23 08:38 cats Allergy Mild Other (See Uncoded 12/26/23 08:38 Comment) General Stated Complaint: Orthopedic SAMARA: 3 Exam Narrative Exam Narrative: 78-year-old female in no acute distress, ambulatory with antalgic gait, ecchymosis right left leg with extension up to her proximal thigh, nontender, mild tenderness to collins 1+ edema, no calf swelling or tenderness, no intact rhythm regular Course Vital Signs Vital signs: Vital Signs Temperature 36.3 C L 12/31/23 09:22 Pulse 85 12/31/23 09:22 Respiratory Rate 16 12/31/23 09:22 Blood Pressure 104/40 L 12/31/23 09:22 Pulse Oximetry 97 12/31/23 09:22 Temperature 36.3 C L 12/31/23 09:22 Temperature Source Tympanic 12/31/23 09:22 Pulse 85 12/31/23 09:22 Respiratory Rate 16 12/31/23 09:22 Blood Pressure 132/67 12/31/23 10:51 Blood Pressure Position Sitting 12/31/23 09:22 Pulse Oximetry 97 12/31/23 09:22 Oxygen Delivery Method Room Air 12/31/23 09:22 Oxygen Flow Rate 0 12/31/23 09:22 Pain Level 2 12/31/23 09:22 Comment Pain increases to 5/10 with ambulation 12/31/23 09:22 Lab/Test Results Lab/Test Results: Laboratory Tests Range/Units 12/31/23 09:55 WBC (4.4-10.8) 10^3/uL 8.81 RBC (3.93-5.22) 10^6/uL 3.29 L Hgb (11.2-15.7) g/dL 10.9 L Hct (36.0-46.0) % 33.5 L MCV (80-95) fL 102 H MCH (27.0-33.0) pg 33.1 H MCHC (32.0-36.0) % 32.5 RDW (11.7-14.6) % 13.5 Plt Count (130-400) 10^3/uL 341 MPV (8.0-11.0) fL 9.2 Immature Gran % % 0.7 Neutrophils % % 62.6 Lymphocytes % % 22.6 Monocytes % % 10.3 Eosinophils % % 3.5 Basophils % % 0.3 Nucleated RBC % (0.0-0.3) % 0.0 Absolute Neutrophils (1.2-6.7) 10^3/uL 5.51 Absolute Lymphocytes (1.2-3.4) 10^3/uL 1.99 Absolute Monocytes (0.1-0.8) 10^3/uL 0.91 H Absolute Eosinophils (0.0-0.7) 10^3/uL 0.31 Absolute Basophils (0.0-0.2) 10^3/uL 0.03 Sodium (136-145) mmol/L 138 Potassium (3.5-5.1) mmol/L 3.9 Chloride (98-107) mmol/L 103 Carbon Dioxide (21.0-32.0) mmol/L 25.4 Anion Gap (3-11) mmol/L 9.6 BUN (7-18) mg/dL 26 H Creatinine (0.55-1.02) mg/dL 0.9 Est GFR (CKD-EPI 2020) (mL/min/1.73m2) 64.63 Glucose (74-106) mg/dL 88 Calcium (8.5-10.1) mg/dL 9.0 Total Bilirubin (0.2-1.0) mg/dL 0.95 AST (15-37) U/L 21 ALT (14-59) U/L 29 Alkaline Phosphatase (46-116) U/L 71 Total Protein (6.4-8.2) g/dL 7.1 Albumin (3.4-5.0) g/dL 3.4 Medical Decision Making 6-year-old female presenting status post knee replacement for increased swelling. Case discussed with Dr. Mcdaniel actually called numerous prior to the end he has very low suspicion for DVT will see patient tomorrow in the office. And chemistry panel secondary to initial blood test. It is, very mild state with DVT or PE. Patient will need reassessment tomorrow. Return precautions reviewed and patient expressed understanding, discharged home in stable condition with stable vitals, neurovascularly intact Quality:SDOH Health Related Social Needs: No Data to Display PFSH All Active Problems (Updated 12/31/23 @ 11:11 by WM Salgado) Left leg swelling (Acute) Post-operative state (Acute) History of left knee replacement (Acute 12/26/23) Osteochondral defect of femoral condyle (Acute) Pes anserinus bursitis of left knee (Acute) Hiatal hernia (Chronic) Bronchiectasis (Acute) Exertional shortness of breath (Acute) since covid19 Snoring (Acute) Stress (Acute) family Essential thrombocythemia (Acute) Osteoporosis (Chronic) Hypertensive disorder (Chronic) Trigger thumb, right thumb (Acute) Trigger finger, left ring finger (Acute) S/P Release: 01/19/2021 Post-nasal drip (Acute) Chronic rhinitis (Acute) Allergic rhinitis due to dust mite (Acute) Allergic rhinitis due to allergen (Acute) Lump on finger (Acute) Left thumb Trigger thumb, left thumb (Acute) 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 Had to have Barium enema done Oophrectomy, Right (~1994) Hydrosalpinx Oophrectomy, Left (~1974) cyst Abdominal hysterectomy (~1979) for bleeding Family History Brother Colon cancer Maternal Uncle Colon cancer Social History Smoking/Tobacco Use Status: Former Tobacco Use Quit Date: 05/15/87 Pack-years: 30 Smoking risk assessment performed?: Yes Alcohol Intake: current Alcohol Intake frequency: holidays/special occasions only Alcohol type: wine Drug use: Never Substance use type: does not use Housing: house Do you feel safe at home: Yes Do you feel safe in your relationship?: Yes
[2023-12-31 11:35] VITALS: BP 132/67; PULSE 85; RESP 16; TEMP 36.3; O2SAT 97
== END 2023-12-31 11:38 | disposition home or self-care (01) ==
PROVIDERS: Emergency Provider Physician Assistant; PCP Nurse Practitioner Family
DX: M79.89 Other specified soft tissue disorders (principal); Z96.652 Presence of left artificial knee joint; Z98.890 Other specified postprocedural states
CPT/HCPCS: 80053; 99282; 85025

== ENCOUNTER 2024-01-08 14:00 | Outpatient (CLI) | payer MEDICARE, SELFPAY ==
--- NOTE | 2024-01-08 11:15 | DI.RAD_ITS ---
Exam(s) XR STANDING ALIGNMENT EXAM: XR STANDING ALIGNMENT CLINICAL HISTORY: 1st post op L TKA. TECHNIQUE: 2D digital imaging was performed. COMPARISON: CR XR STANDING ALIGNMENT from 12/14/2023 FINDINGS: 3 views There has been interval placement of a left knee prosthesis which appears satisfactory. There is moderate-advanced narrowing of the medial compartment of the opposite-right knee again noted . Lateral compartment of the right knee appears unremarkable. Hips appear unremarkable as do the other bones of the pelvis. Both ankles appear unremarkable. Celestina r domes unremarkable. IMPRESSION: As above. DATA REPOSITORY: RADIATION DOSE DELIVERED:
--- NOTE | 2024-01-08 11:40 | DI.RAD_ITS ---
Exam(s) XR KNEE LT 1V EXAM: XR KNEE LT 1V CLINICAL HISTORY: S/P L TKA. TECHNIQUE: 2D digital imaging was performed. COMPARISON: CR,XR XR KNEE LT 3V AP,LAT,PRISCILLA from 07/01/2023 FINDINGS: Single lateral view of the left hip Prosthesis components appear unremarkable. No fractures nor loosening evident on this single view. IMPRESSION: Satisfactory appearance on the lateral view. DATA REPOSITORY: RADIATION DOSE DELIVERED:
== END 2024-01-08 14:01 | disposition home or self-care (01) ==
LOC: DIORS 14:00
PROVIDERS: PCP Nurse Practitioner Family; Referring Provider Nurse Practitioner Family; Visit Provider Student in an Organized Health Care Education/Training Program
DX: Z96.652 Presence of left artificial knee joint (principal); Z47.1 Aftercare following joint replacement surgery
CPT/HCPCS: 73560; 77073

== ENCOUNTER → 2024-02-08 11:02 | Outpatient (BNVA) | payer MEDICARE, SELFPAY | PROVIDERS: PCP Nurse Practitioner Family | DX: Z47.1 Aftercare following joint replacement surgery (principal); Z96.652 Presence of left artificial knee joint ==

== ENCOUNTER → 2024-03-21 10:52 | Outpatient (BNVA) | payer MEDICARE, SELFPAY | PROVIDERS: PCP Nurse Practitioner Family; Referring Provider Nurse Practitioner Family; Visit Provider Student in an Organized Health Care Education/Training Program | DX: Z47.1 Aftercare following joint replacement surgery (principal); Z96.652 Presence of left artificial knee joint | CPT/HCPCS: 99024 ==

== ENCOUNTER 2024-05-22 02:06 | Outpatient (CLI) | payer MEDICARE, SELFPAY ==
--- NOTE | 2024-05-22 | DI.CT_ITS ---
Exam(s) CT CHEST WO EXAM: CT CHEST WO CLINICAL HISTORY: R91.1 Solitary puomonary nodule, R06.00 Dyspnea. TECHNIQUE: Imaging protocol: Axial computed tomography images were obtained and coronal and sagittal reformatted images were created and reviewed. Lung Computer Aided Detection (CAD) was utilized. COMPARISON: CT CT CHEST WO from 10/26/[address] CHEST WO from 05/18/2023 FINDINGS: Tracheobronchial tree: Patent where visualized. No bronchiectasis is present. Pulmonary parenchyma: There are stable perifissural nodules associated with the right minor fissure. There has been no change in appearance of the 3 mm nodule in the medial aspect of the left upper lob e. No focal consolidating infiltrates are seen. No new pulmonary nodules are present. Mediastinum and Chacha: No dominant adenopathy or fluid collection. There is a large hiatal hernia with a significant portion of the stomach above the diaphragm. Thyroid gland: Unremarkable. Pleura: No effusion or pneumothorax. Heart: The heart is not dilated. Three vessel coronary artery calcification is present. No pericardi al effusion. Aorta: Thoracic aorta non-dilated. Atherosclerotic calcification is present. Upper abdomen: Diverticulosis of the colon is noted. There is a stable hepatic cyst. Lymph nodes: Within normal limits. Soft tissues: Unremarkable. Bones:Within normal limits for the patient's age. IMPRESSION: 1. Stable left upper lobe pulmonary nodule. No new pulmonary nodules. 2. No acute pulmonary process. RADIATION DOSE DELIVERED: 204.12mGy.cm Total DLP 204.12mGy.cm Total DLP DATA REPOSITORY: All CT scans at this facility are submitted to the National Radiology Data Registry (NRDR) Dose Index Registry (DIR) with the [employer] (A[employer]). RADIATION OPTIMIZATION: All CT scans at this facility use at least one of these dose optimization te chniques: automated exposure control; mA and/or kV adjustment per patient size (includes targeted exa ms where dose is matched to clinical indication); or iterative reconstruction.
== END 2024-05-22 02:26 ==
LOC: DI 02:06
PROVIDERS: PCP Nurse Practitioner Family; Visit Provider Nurse Practitioner Family
DX: R91.8 Other nonspecific abnormal finding of lung field (principal)
CPT/HCPCS: 71250

== ENCOUNTER 2024-06-06 02:29 | Outpatient (CLI) | payer MEDICARE, SELFPAY ==
--- NOTE | 2024-06-06 10:00 | DI.US_ITS ---
Exam(s) US ABDOMEN LIMITED EXAM: US ABDOMEN LIMITED CLINICAL HISTORY: STEATOSIS OF LIVER,K76.0,FATTY LIVER TECHNIQUE: Ultrasound abdomen performed using standard protocol. COMPARISON: US POCUS EXAM from 12/26/2023 FINDINGS: There is no ascites evident. LIVER: There is a slightly complex cyst in the left hepatic lobe measuring 1.9 x 1.9 x 2.0 cm. Liver parenchyma is hyperechoic indicating an element of steatosis. GALLBLADDER/BILIARY: There are calculi and sludge within the gallbladder lumen. Gallbladder is sligh tly distended. The gallbladder wall does not appear edematous and there is no pericholecystic fluid. The common hepatic duct isupper normal, measuring 6-7mm at the level of inder hepatis. There are no obvious calculi seen within the partially visualized CBD. PANCREAS: Incompletely visualized due to bowel gas. RIGHT KIDNEY:No evidence of solid mass, calculus, nor hydronephrosis. No cortical cysts evident. IMPRESSION: 1. There are multiple gallstones and sludge within the gallbladder lumen. The gallbladder slightly distended but does not appear edematous and apparently the patient was not very tender over this area during scanning today. CBD diameter measures up to 7 mm. If there is significant clinical consider ation for calculus within the CBD then follow-up CT scan or MRCP would be recommended. 2. There is a septated cystic structure in the left hepatic lobe which measures 2 x 1.9 x 1.9 cm.. This is probably a benign septated cyst. There is a hepatic steatosis noted. 3. Gallbladder is suboptimally visualized due to overlying bowel gas DATA REPOSITORY:
== END 2024-06-06 02:49 ==
LOC: DI 02:29
PROVIDERS: PCP Nurse Practitioner Family; Visit Provider Nurse Practitioner Family
DX: K76.0 Fatty (change of) liver, not elsewhere classified (principal)
CPT/HCPCS: 76705

== ENCOUNTER 2024-07-17 10:11 | Outpatient (REF) | payer MEDICARE, SELFPAY ==
[2024-07-17 15:52] LABS: HCT 32.5 % (36.0-46.0); HGB 9.6 g/dL (11.2-15.7); MCH 26.5 pg (27.0-33.0); MCHC 29.5 % (32.0-36.0); MCV 90 fL (80-95); MPV 10.3 fL (8.0-11.0); Platelet Count 346 10^3/uL (130-400); RBC 3.62 10^6/uL (3.93-5.22); RDW-SD 65.7 fL; WBC 6.28 10^3/uL (4.4-10.8)
[2024-07-17 16:13] LABS: Bilirubin Small (Negative); Blood Negative (Negative); Clarity Cloudy (Clear); Glucose 100 mg/dL (Negative); Ketones Trace mg/dL (Negative); Leukocyte Esterase Negative (Negative); Nitrite Negative (Negative); Specific Gravity 1.025 (1.005-1.025); Urobilinogen 0.2 mg/dL (Up to 0.2); pH 5.5 (5-8)
[2024-07-17 16:25] LABS: ALT 28 U/L (14-59); AST 22 U/L (15-37); Albumin 3.7 g/dL (3.4-5.0); Alkaline Phosphatase 100 U/L (46-116); Anion Gap 5.7 mmol/L (3-11); BUN 27 mg/dL (7-18); Bilirubin, Total 0.37 mg/dL (0.2-1.0); CO2 28.3 mmol/L (21.0-32.0); CREATININE 0.8 mg/dL (0.55-1.02); Calcium 9.2 mg/dL (8.5-10.1); Chloride 108 mmol/L (98-107); Estimated GFR 73.98 (mL/min/1.73m2); Glucose 75 mg/dL (74-106); Potassium 4.4 mmol/L (3.5-5.1); Sodium 142 mmol/L (136-145); Total Protein 7.1 g/dL (6.4-8.2)
[2024-07-17 18:50] LABS: Microalb ug/mg Crea 7.3 ug/mg Cr
[2024-07-17 18:52] LABS: COMMENT (LAB VIEW ONLY) 442.65 mg/dL
== END 2024-07-17 10:12 | disposition home or self-care (01) ==
LOC: NCHCN 10:11
PROVIDERS: PCP Nurse Practitioner Family; Visit Provider Nurse Practitioner Family
DX: D47.3 Essential (hemorrhagic) thrombocythemia (principal); K76.0 Fatty (change of) liver, not elsewhere classified
CPT/HCPCS: 80053; 85027; 81003; 82043; 82570

== ENCOUNTER 2024-07-24 16:02 | Outpatient (REF) | payer MEDICARE, SELFPAY ==
[2024-07-24 21:39] LABS: Abs Immature Grans 0.04 10^3/uL (0.0-0.06); Absolute Basophil Count 0.07 10^3/uL (0.0-0.2); Absolute Eosinophil Count 0.26 10^3/uL (0.0-0.7); Absolute Lymphocyte Count 1.78 10^3/uL (1.2-3.4); Absolute Monocyte Count 0.58 10^3/uL (0.1-0.8); Absolute Neutrophil Count 4.52 10^3/uL (1.2-6.7); Eosinophils % 3.6 %; HCT 32.8 % (36.0-46.0); HGB 9.8 g/dL (11.2-15.7); Immature Grans % 0.6 %; Lymphocytes % 24.6 %; MCH 26.2 pg (27.0-33.0); MCHC 29.9 % (32.0-36.0); MCV 88 fL (80-95); MPV 9.6 fL (8.0-11.0); Neutrophils % 62.2 %; Platelet Count 682 10^3/uL (130-400); RBC 3.74 10^6/uL (3.93-5.22); RDW 19.6 % (11.7-14.6); RDW-SD 63.1 fL; Reticulocyte 1.5 % (0.5-2.4); WBC 7.25 10^3/uL (4.4-10.8)
[2024-07-24 22:10] LABS: Diff Comment RBC Morph Reviewed
[2024-07-24 22:14] LABS: Ferritin 12 ng/mL (8-252); Vitamin B12 707 pg/mL (193-986)
[2024-07-24 22:15] LABS: Folate > 20.0 ng/mL (8.6-20.0)
[2024-07-24 22:23] LABS: Iron 17 ug/dL (50-170); Total Iron Binding Capacity 477 ug/dL (250-450); Transferrin Sat 4 % (15-50)
[2024-07-26 10:10] LABS: Haptoglobin 142 mg/dL (32-197)
== END 2024-07-24 16:03 | disposition home or self-care (01) ==
LOC: NCHCN 16:02
PROVIDERS: PCP Nurse Practitioner Family; Visit Provider Nurse Practitioner Family
DX: D64.9 Anemia, unspecified (principal)
CPT/HCPCS: 82607; 82728; 82746; 83010; 83540; 83550; 83615; 85025; 85045

== ENCOUNTER 2024-08-02 00:21 | Outpatient (CLI) | payer MEDICARE, SELFPAY ==
[2024-08-02 11:37] LABS: LDH 187 U/L (81-234)
== END 2024-08-02 00:22 | disposition home or self-care (01) ==
LOC: LBO 00:21
PROVIDERS: PCP Nurse Practitioner Family; Visit Provider Nurse Practitioner Family
DX: D64.9 Anemia, unspecified (principal)
CPT/HCPCS: 36415; 83615

== ENCOUNTER 2024-08-29 18:28 | Outpatient (REF) | payer MEDICARE, SELFPAY ==
[2024-08-29 21:29] LABS: Abs Immature Grans 0.01 10^3/uL (0.0-0.06); Absolute Basophil Count 0.05 10^3/uL (0.0-0.2); Absolute Eosinophil Count 0.28 10^3/uL (0.0-0.7); Absolute Lymphocyte Count 1.87 10^3/uL (1.2-3.4); Absolute Monocyte Count 0.51 10^3/uL (0.1-0.8); Absolute Neutrophil Count 2.93 10^3/uL (1.2-6.7); Basophils % 0.9 %; HCT 36.9 % (36.0-46.0); HGB 11.5 g/dL (11.2-15.7); Immature Grans % 0.2 %; Lymphocytes % 33.1 %; MCH 29.1 pg (27.0-33.0); MCHC 31.2 % (32.0-36.0); MCV 93 fL (80-95); MPV 10.4 fL (8.0-11.0); Neutrophils % 51.8 %; Platelet Count 342 10^3/uL (130-400); RBC 3.95 10^6/uL (3.93-5.22); RDW 21.2 % (11.7-14.6); RDW-SD 72.2 fL; WBC 5.65 10^3/uL (4.4-10.8)
[2024-08-29 21:55] LABS: Anisocytosis 2+; Diff Comment RBC Morph Reviewed
[2024-08-29 21:56] LABS: Poikilocytes 1+
== END 2024-08-29 18:29 | disposition home or self-care (01) ==
LOC: NCHCN 18:28
PROVIDERS: PCP Nurse Practitioner Family; Visit Provider Nurse Practitioner Family
DX: D47.3 Essential (hemorrhagic) thrombocythemia (principal)
CPT/HCPCS: 85025

== ENCOUNTER 2024-09-04 08:45 | Outpatient (CLI) | payer MEDICARE, SELFPAY ==
[2024-09-04 09:59] LABS: D-Dimer 632 ng/mlFEU (<500)
[2024-09-04 11:57] LABS: LDH 188 U/L (81-234); NT-proBNP 562 pg/mL (<300); TSH (W/Ref FT4) 3.57 uIU/mL (0.36-3.74)
== END 2024-09-04 08:46 | disposition home or self-care (01) ==
LOC: LBO 08:45
PROVIDERS: PCP Nurse Practitioner Family; Visit Provider Nurse Practitioner Family
DX: R06.00 Dyspnea, unspecified; E03.9 Hypothyroidism, unspecified; D64.9 Anemia, unspecified
CPT/HCPCS: 36415; 83615; 83880; 84443; 85379

== ENCOUNTER 2024-09-06 00:14 | Outpatient (CLI) | payer MEDICARE, SELFPAY ==
[2024-09-06 10:40] LABS: CREATININE 1.1 mg/dL (0.55-1.02); Estimated GFR 50.48 (mL/min/1.73m2)
[2024-09-06] MEDS: Omnipaque 350 MG/ML 500 ML BTL-Imaging package 65 ML IJ (11:12)
[2024-09-06] MEDS: Normal Saline - Diluent 50 ML VIAL IJ (11:12)
--- NOTE | 2024-09-06 11:30 | DI.CT_ITS ---
Exam(s) CT CHEST PE CTA EXAM: CT CHEST PE CTA s CLINICAL HISTORY: ELEVATED D DIMER,R79.89,? PE. TECHNIQUE: Imaging Protocol: CT angiography of the chest was performed using pulmonary embolus eliazar col. Multi planar reconstructions were performed. CONTRAST MATERIAL: Intravenous: Omnipaque 350 Contrast volume: 100 cc COMPARISON: CT CT CHEST WO from 05/22/2024 FINDINGS: CHEST: PULMONARY ARTERIES: There are no intraluminal filling defects to suggest acute pulmonary emboli. LUNGS: Mild increased markings in both lower lobes probably related to hypoaeration. No confluent in filtrates nor pleural effusions. No significant focal findings in the trachea and mainstem bronchi.. MEDIASTINUM: Large retrocardiac hiatal hernia in the posterior mediastinum which measures 10 cm wide by 4 cm AP by 7 cm craniocaudal, slightly larger than previous. There is no hilar nor mediastinal ad enopathy. Visualized thyroid unremarkable. CARDIAC: Heart size is upper normal. There is no pericardial effusion.Caliber of the thoracic aorta is within normal limits. No evidence of dissection. There is no significant shift of the interventri cular septum. PARTIALLY VISUALIZED UPPERMOST ABDOMEN: Large hiatal hernia with measurements as above. No adrenal m asses. Spleen size normal. Mildly distended gallbladder. OSSEOUS: No significant osseous lesions.. IMPRESSION: 1. No evidence of acute pulmonary emboli. No evidence of pulmonary infarction.No pleural effusions. 2. 3. RADIATION DOSE DELIVERED: 70.27mGy.cm Total DLP DATA REPOSITORY: All CT scans at this facility are submitted to the National Radiology Data Registry (NRDR) Dose Index Registry (DIR) with the [employer] (ACR). RADIATION OPTIMIZATION: All CT scans at this facility use at least one of these dose optimization te chniques: automated exposure control; mA and/or kV adjustment per patient size (includes targeted exa ms where dose is matched to clinical indication); or iterative reconstruction.
== END 2024-09-06 00:34 ==
LOC: DI 00:15
PROVIDERS: PCP Nurse Practitioner Family; Visit Provider Nurse Practitioner Family
DX: R87.89 Other abnormal findings in specimens from female genital organs (principal)
CPT/HCPCS: 71275; 82565

== ENCOUNTER 2024-09-26 01:06 | Outpatient (CLI) | payer MEDICARE, SELFPAY ==
--- NOTE | 2024-09-26 12:30 | DI.US_ITS ---
APPROVED REPORT EXAM: Comprehensive 2D, Doppler, and color-flow Echocardiogram Patient Location: Out-Patient Finisher Denture: Jacob Paulino RDCS (AE) Indications: DIAZ Other Information Study Quality: Adequate Conclusion Mild concentric left ventricular hypertrophy. Ejection fraction is 55%. Wall motion is normal Normal right ventricular size and function Mildly enlarged left atrium. Normal right atrial size Aortic valve is calcified and trileaflet. There is mild aortic stenosis. Mean gradient is 17 mmHg. There is no aortic regurgitation Mild mitral annular calcification. Trace mitral regurgitation Estimated right ventricular systolic pressure is 26 mmHg Wall motion Left Ventricle The left ventricle is normal size. The left ventricular systolic function is normal. The left ventric ular ejection fraction is within the normal range. Mild concentric left ventricular hypertrophy. No s egmental wall motion abnormalities There is no ventricular septal defect visualized. LVEF is 55%. Right Ventricle The right ventricle is normal size. The right ventricular systolic function is normal. Atria Left atrium is mildly dilated The right atrium size is normal. The interatrial septum is intact with no evidence for an atrial septal defect. Aortic Valve Aortic valve is calcified. Aortic valve is trileaflet. Mild aortic stenosis. Peak aortic valve gradie nt is 29.81 mmHg. Highest mean aortic valve gradient is 17.46 mmHg. Calculated MILI by the continuity equation is 0.8 cm2. No aortic regurgitation is present. Mitral Valve Mild mitral annular calcification. No evidence of mitral valve stenosis. Trace mitral regurgitation. Tricuspid Valve The tricuspid valve is normal in structure. There is no tricuspid valve stenosis. Trace tricuspid reg urgitation. The RVSP is 26.2 mmHg. Pulmonic Valve The pulmonary valve is normal in structure. There is no pulmonic valvular stenosis. There is no pulmo girma valvular regurgitation. Great Vessels The aortic root is normal in size. The ascending aorta is normal in size. Aortic arch is normal in ca liber. IVC is normal in size and collapses >50% with inspiration. Pericardium There is no pericardial effusion. 2D Dimensions IVSD d PLAX 1.37 cm F: 0.6-1.0 Ao Root d 2.34 cm F: 2.7 - 3.3 LVPW d PLAX 1.37 cm F: 0.6 - 1.0 Ao Asc Diam d 2.64 cm F: 2.3 - 3.1 LVID d PLAX 3.90 cm F: 3.8 - 5.2 LVDs 3.03 cm F: 2.2 - 3.5 LV EF Teichholz 45.6 % FS 22.31 % LV EDV (Teich) 65.9 mL LV ESV (Teich) 35.9 mL Stroke Vol Index (Teich) 18.44 M-Mode TAPSE 1.87 cm (M/F) >1.7 Auto EF LV EDV A4C 78.9 mL LV EDV A2C 70.0 mL LV EDV BP 74.6 mL LV ESV A4C 41.0 mL LV ESV A2C 33.7 mL LV ESV BP 37.1 mL LVEF(%) A4C 48.0 % LVEF(%) A2C 51.8 % LVEF(%) BP 50.2 % LV SV A4C 37.9 ml LV SV A2C 36.3 ml LV SV BP 37.5 ml LV CO A4C 3.3 L/min LV CO A2C 3.1 L/min LV CO BP 3.2 L/min HR A4C 85.92 BPM HR A2C 86.54 BPM LV EDV Index (BP) LA Volume LA Length A4C 5.7 cm LA Length A2C LA Area A4C s 10.67 cm2 LA Area A2C s LA Vol A4C A-L 17.01 mL LA Vol A2C A-L LA Vol Biplane A-L LA Vol A4C MOD 14.1 mL LA Vol A2C MOD LA Vol BP MOD LV Diastology MV E' medial 0.134 (>0.07 m/s) MV E Vmax 1.25 (0.4-1.3 m/s) MV E' lateral 0.092 (>0.1 m/s) Aortic Valve AoV Vmax 2.73 m/s LVOT Vmax 0.72 m/s AoV Peak Grad 29.8 mmHg LVOT Peak Grad 2.1 mmHg AoV Area (Vmax) 0.73 cm2 LVOT VTI 0.159 m AoV VTI 0.576 m LVOT Mean Grad 1.5 mmHg AoV Mean Rahul. 1.98 m/s LVOT SV 44.17 mL AoV Mean Grad 17.5 mmHg LVOT Diam s 1.85 cm AoV Area (VTI) 0.77 cm2 AV Regurg Peak Gr. 29.81 mmHg Velocity Ratio 0.26 Pulmonary Valve PV Vmax 1.02 (0.5-1.5 m/s) RVOT Vmax 0.64 m/s PV Peak Grad 4.2 mmHg RVOT Peak Gr. 1.7 mmHg PV Mean Rahul 0.75 m/s RVOT VTI 0.139 m PV Mean Grad 2.5 mmHg RVOT Mean Gr. 0.9 mmHg Tricuspid Valve RA Pressure 3.00 mmHg TR Vmax 2.41 m/s TV S' 0.12 m/s TR Peak Grad 23.2 mmHg RVSP (TR) 26.2 mmHg
== END 2024-09-26 01:26 ==
LOC: DI 01:06
PROVIDERS: PCP Nurse Practitioner Family; Visit Provider Internal Medicine Cardiovascular Disease
DX: R06.00 Dyspnea, unspecified (principal); I51.7 Cardiomegaly
CPT/HCPCS: 93306

== ENCOUNTER 2024-09-27 00:05 | Outpatient (CLI) | payer MEDICARE, SELFPAY ==
--- NOTE | 2024-09-27 | DI.DEXA_ITS ---
Exam(s) XR DEXA BONE DENSITY W/WO RADHA EXAM: XR DEXA BONE DENSITY W/WO RADHA CLINICAL HISTORY: Senile age-related osteoporosis wo current pathological fx, M81.0 TECHNIQUE: Routine DEXA evaluation of the lumbar spine, hip, or forearm. COMPARISON: CR XR DEXA BONE DENSITY W/WO RADHA from 07/16/2021 FINDINGS: Performed on a Hologic unit. Lateral image: No compression fracture evident. Lumbar Spine total T-score: -3.1 which is in osteoporosis range. This is identical reading to July 2021 study. Hip total T-score:-2.8. This is osteoporosis range. Prior reading in July 2021 was -2.4 Independent reading at the level of the femoral neck yields T-score of -3.4 which is also osteoporos is level. Prior reading at this level was -2.9 in July 2022. Forearm total T-score: -5.0. This is osteoporosis range. Prior reading in July 2021 was -4.8 IMPRESSION: Bone mineral density measures in the osteoporosis range. Fracture risk is high. Note: Any spine fracture indicates 5x risk for subsequent spine fracture and 2x risk for subsequent h ip fracture. World Health Organization criteria for BMD interpretation classify patients: Normal...... T- Score at or above -1.0 Osteopenic... T- Score between -1.0 and -2.5 Osteoporosis... T-Score at or below -2.5
== END 2024-09-27 00:25 ==
LOC: DI 00:05
PROVIDERS: PCP Nurse Practitioner Family; Visit Provider Nurse Practitioner Family
DX: M81.0 Age-related osteoporosis without current pathological fracture (principal)
CPT/HCPCS: 77080

== ENCOUNTER 2024-11-01 01:02 | Outpatient (CLI) | payer MEDICARE, SELFPAY ==
[2024-11-01 10:15] LABS: Abs Immature Grans 0.01 10^3/uL (0.0-0.06); Absolute Basophil Count 0.03 10^3/uL (0.0-0.2); Absolute Lymphocyte Count 1.67 10^3/uL (1.2-3.4); Absolute Monocyte Count 0.68 10^3/uL (0.1-0.8); Absolute Neutrophil Count 3.74 10^3/uL (1.2-6.7); Basophils % 0.5 %; Eosinophils % 3.2 %; HCT 38.9 % (36.0-46.0); Immature Grans % 0.2 %; Lymphocytes % 26.4 %; MCH 32.5 pg (27.0-33.0); MCHC 33.4 % (32.0-36.0); MCV 97 fL (80-95); MPV 9.2 fL (8.0-11.0); Monocytes % 10.7 %; Platelet Count 281 10^3/uL (130-400); RDW 16.4 % (11.7-14.6); RDW-SD 58.3 fL; Reticulocyte 1.1 % (0.5-2.4); WBC 6.33 10^3/uL (4.4-10.8)
[2024-11-01 11:04] LABS: Ferritin 46 ng/mL (8-252); LDH 203 U/L (81-234); Vitamin B12 815 pg/mL (193-986)
[2024-11-01 11:05] LABS: Folate > 20.0 ng/mL (8.6-20.0)
[2024-11-01 11:32] LABS: Iron 74 ug/dL (50-170); Total Iron Binding Capacity 348 ug/dL (250-450); Transferrin Sat 21 % (15-50)
[2024-11-04 10:08] LABS: Haptoglobin 123 mg/dL (32-197)
== END 2024-11-01 01:03 | disposition home or self-care (01) ==
LOC: LBO 01:02
PROVIDERS: PCP Nurse Practitioner Family; Visit Provider Nurse Practitioner Adult Health
DX: D64.9 Anemia, unspecified (principal)
CPT/HCPCS: 36415; 82607; 82728; 82746; 83010; 83540; 83550; 83615; 85025; 85045

== ENCOUNTER 2024-11-21 09:22 | Outpatient (CLI) | payer MEDICARE, SELFPAY | END 2024-11-21 09:23 | disposition home or self-care (01) | LOC: DI.CARD 09:23 | PROVIDERS: PCP Nurse Practitioner Family; Visit Provider Internal Medicine Cardiovascular Disease | CPT/HCPCS: 93010 ==

== ENCOUNTER 2024-11-21 16:08 | Outpatient (REF) | payer MEDICARE, SELFPAY ==
[2024-11-21 19:32] LABS: Abs Immature Grans 0.01 10^3/uL (0.0-0.06); HCT 39.4 % (36.0-46.0); HGB 13.1 g/dL (11.2-15.7); Immature Grans % 0.2 %; MCH 33.1 pg (27.0-33.0); MCHC 33.2 % (32.0-36.0); MCV 100 fL (80-95); MPV 9.5 fL (8.0-11.0); Platelet Count 366 10^3/uL (130-400); RBC 3.96 10^6/uL (3.93-5.22); RDW 14.4 % (11.7-14.6); RDW-SD 51.6 fL; WBC 6.41 10^3/uL (4.4-10.8)
[2024-11-21 19:49] LABS: ALT 53 U/L (14-59); AST 33 U/L (15-37); Albumin 4.0 g/dL (3.4-5.0); Alkaline Phosphatase 81 U/L (46-116); Anion Gap 10.9 mmol/L (3-11); BUN 31 mg/dL (7-18); Bilirubin, Total 0.5 mg/dL (0.2-1.0); CO2 23.1 mmol/L (21.0-32.0); Calcium 8.8 mg/dL (8.5-10.1); Chloride 107 mmol/L (98-107); Glucose 114 mg/dL (74-106); Potassium 4.1 mmol/L (3.5-5.1); Sodium 141 mmol/L (136-145); Total Protein 7.3 g/dL (6.4-8.2)
[2024-11-25 11:00] LABS: Lyme Ab w Rflx to Lyme Confirm Negative (Negative)
[2024-11-25 16:01] LABS: B. miyamotoi PCR Negative (Negative); Babesia divergens/MO-1 Negative (Negative); Ehrlichia muris eauclairensis Negative (Negative)
== END 2024-11-21 16:09 | disposition home or self-care (01) ==
LOC: NCHCN 16:08
PROVIDERS: PCP Nurse Practitioner Family; Visit Provider Family Medicine
DX: R53.83 Other fatigue (principal); R53.81 Other malaise; I10 Essential (primary) hypertension; D47.3 Essential (hemorrhagic) thrombocythemia
CPT/HCPCS: 80053; 87798; 85025; 86618

== ENCOUNTER 2024-12-05 08:12 | Outpatient (CLI) | payer MEDICARE, SELFPAY ==
--- NOTE | 2024-12-05 08:00 | RT.EKG_ITS ---
APPROVED REPORT Exam: Resting ECG Reason for Exam: DIAZ Patient Location: O HR:104 bpm ECG Measurements Heart Rate 104 AXIS OH 197 P 34 QRSd 138 QRS 108 QT 373 T -13 QTc 491 Conclusion Sinus tachycardia...rate> 99 Right bundle branch block...QRSd>120, terminal axis(90,270)
== END 2024-12-05 08:13 | disposition home or self-care (01) ==
LOC: DI.CARD 08:14
PROVIDERS: PCP Nurse Practitioner Family; Visit Provider Internal Medicine Cardiovascular Disease
DX: R06.02 Shortness of breath (principal); I45.10 Unspecified right bundle-branch block
CPT/HCPCS: 93010

== ENCOUNTER → 2024-12-05 13:44 | Outpatient (BNVA) | payer MEDICARE, SELFPAY | PROVIDERS: PCP Nurse Practitioner Family; Referring Provider Nurse Practitioner Family; Visit Provider Internal Medicine Cardiovascular Disease | DX: I35.0 Nonrheumatic aortic (valve) stenosis (principal); R06.02 Shortness of breath | CPT/HCPCS: 99214 ==

== ENCOUNTER 2024-12-11 13:31 | Outpatient (CLI) | payer MEDICARE, SELFPAY ==
--- NOTE | 2024-12-11 | DI.RAD_ITS ---
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 Two views. COMPARISON: CT CT CHEST PE CTA from 09/06/2024 FINDINGS: HEART: Normal size. Aorta: Not dilated. PULMONARY VASCULATURE: Normal. MEDIASTINUM: Hiatal hernia again noted. LUNGS: Clear. PLEURAL SPACE: No pleural effusion or pneumothorax. BONE:Unremarkable for age. SOFT TISSUES: Unremarkable. IMPRESSION: No acute abnormality. Hiatal hernia. DATA REPOSITORY: RADIATION DOSE DELIVERED:
== END 2024-12-11 13:51 ==
LOC: DI 13:32
PROVIDERS: PCP Nurse Practitioner Family; Visit Provider Nurse Practitioner Family
DX: J15.9 Unspecified bacterial pneumonia (principal)
CPT/HCPCS: 71046

== ENCOUNTER 2024-12-26 11:48 | Outpatient (CLI) | payer MEDICARE, SELFPAY ==
--- NOTE | 2024-12-26 08:15 | DI.RAD_ITS ---
Exam(s) XR KNEE LT 2V AP,LAT EXAM: XR KNEE LT 2V AP,LAT INDICATION: ANNUAL F/U L TKA. COMPARISON: CR XR KNEE LT 1V from 01/08/2024 CR XR STANDING ALIGNMENT from 01/08/2024 TECHNIQUE: 2D digital imaging was performed. Two views. FINDINGS: Stable alignment of total left knee prosthesis. No abnormal surrounding bony lucencies. DATA REPOSITORY: RADIATION DOSE DELIVERED:
== END 2024-12-26 11:49 | disposition home or self-care (01) ==
LOC: DIORS 11:48
PROVIDERS: PCP Nurse Practitioner Family; Visit Provider Student in an Organized Health Care Education/Training Program
DX: Z47.1 Aftercare following joint replacement surgery (principal); Z96.652 Presence of left artificial knee joint; R20.0 Anesthesia of skin
CPT/HCPCS: 99212; 73560

== ENCOUNTER → 2025-02-11 09:17 | Outpatient (BNVA) | payer MEDICARE, SELFPAY | PROVIDERS: PCP Nurse Practitioner Family; Referring Provider Nurse Practitioner Family; Visit Provider Physician Assistant Surgical | DX: J45.909 Unspecified asthma, uncomplicated (principal); J47.9 Bronchiectasis, uncomplicated; K44.9 Diaphragmatic hernia without obstruction or gangrene; R06.02 Shortness of breath; Z87.891 Personal history of nicotine dependence | CPT/HCPCS: 99215 ==

== ENCOUNTER 2025-02-14 04:54 | Outpatient (CLI) | payer MEDICARE, SELFPAY ==
[2025-02-14] MEDS: Methacholine 100 MG VIAL IH (12:58)
[2025-02-14] MEDS: Albuterol HFA 18 GM 200 PUFF INH IH (12:58)
[2025-02-14] MEDS: Inhaler, Assist Device 1 EACH MC (12:58)
--- NOTE | 2025-02-17 12:14 | W.PFT ---
Date of service: 02/14/25 Time of Service: 09:52 Pulmonary Function Test Result Indications: Bronchiectasis, dyspnea Impression 1. Good patient effort was noted. ATS standards for reproducibility were met. 2. Normal spirometry. 3. At 16 mg/mL of methacholine, there was a 14% fall in FEV1 Conclusion: - Normal spirometry - Negative methacholine challenge test
== END 2025-02-14 04:55 | disposition home or self-care (01) ==
LOC: RT 04:54
PROVIDERS: PCP Nurse Practitioner Family; Visit Provider Physician Assistant Surgical
DX: J47.9 Bronchiectasis, uncomplicated (principal); J45.909 Unspecified asthma, uncomplicated
CPT/HCPCS: 94070; 94726; 94729; 95070; J7674

== ENCOUNTER 2025-03-13 03:36 | Outpatient (CLI) | payer MEDICARE, SELFPAY ==
[2025-03-13 10:06] LABS: HCT 42.2 % (36.0-46.0); HGB 14.1 g/dL (11.2-15.7); MCH 33.6 pg (27.0-33.0); MCHC 33.4 % (32.0-36.0); MCV 101 fL (80-95); MPV 9.3 fL (8.0-11.0); Platelet Count 298 10^3/uL (130-400); RBC 4.20 10^6/uL (3.93-5.22); RDW 13.2 % (11.7-14.6); RDW-SD 48.5 fL; WBC 4.97 10^3/uL (4.4-10.8)
[2025-03-13 10:50] LABS: ALT 41 U/L (14-59); AST 30 U/L (15-37); Albumin 3.9 g/dL (3.4-5.0); Alkaline Phosphatase 75 U/L (46-116); Anion Gap 7.0 mmol/L (3-11); BUN 26 mg/dL (7-18); Bilirubin, Total 0.5 mg/dL (0.2-1.0); CO2 28.0 mmol/L (21.0-32.0); Calcium 9.2 mg/dL (8.5-10.1); Chloride 104 mmol/L (98-107); Glucose 75 mg/dL (74-106); Magnesium 2.4 mg/dL (1.8-2.4); Potassium 4.3 mmol/L (3.5-5.1); Sodium 139 mmol/L (136-145); TSH 3.18 uIU/mL (0.36-3.74); Total Protein 7.7 g/dL (6.4-8.2)
[2025-03-13 11:29] LABS: Vitamin D 25 Total 35 ng/mL (30-100)
[2025-03-14 11:06] LABS: Albumin 58.0 % (55.8-66.1); Albumin g/dL 4.3 g/dL (3.6-5.2); Alpha 1 g/dL 0.30 g/dL (0.15-0.40); Alpha 2 g/dL 0.90 g/dL (0.50-1.00); Beta g/dL 0.90 g/dL (0.60-1.20); Gamma g/dL 1.00 g/dL (0.60-1.60); Total Protein 7.4 g/dL (6.3-8.2)
== END 2025-03-13 03:37 | disposition home or self-care (01) ==
PROVIDERS: PCP Nurse Practitioner Family; Visit Provider Student in an Organized Health Care Education/Training Program
DX: M81.0 Age-related osteoporosis without current pathological fracture (principal)
CPT/HCPCS: 36415; 80053; 82306; 85027; 83735; 83970; 84100; 84165; 84443

== ENCOUNTER 2025-04-02 03:35 | Outpatient (CLI) | payer MEDICARE, SELFPAY ==
[2025-04-02 09:29] LABS: Abs Immature Grans 0.00 10^3/uL (0.0-0.06); HCT 43.0 % (36.0-46.0); HGB 14.5 g/dL (11.2-15.7); Immature Grans % 0.0 %; MCH 33.9 pg (27.0-33.0); MCHC 33.7 % (32.0-36.0); MCV 101 fL (80-95); MPV 9.1 fL (8.0-11.0); Platelet Count 324 10^3/uL (130-400); RBC 4.28 10^6/uL (3.93-5.22); RDW 13.6 % (11.7-14.6); RDW-SD 50.6 fL; WBC 4.73 10^3/uL (4.4-10.8)
[2025-04-02 09:46] LABS: ALT 34 U/L (10-49); AST 33 U/L (<34); Albumin 4.4 g/dL (3.4-5.0); Alkaline Phosphatase 73 U/L (46-116); Anion Gap 8.7 mmol/L (3-11); BUN 25 mg/dL (9-23); Bilirubin, Total 0.60 mg/dL (0.2-1.2); CO2 28.3 mmol/L (20.0-31.0); Calcium 9.3 mg/dL (8.3-10.6); Chloride 106 mmol/L (98-107); Glucose 77 mg/dL (74-106); Potassium 4.0 mmol/L (3.5-5.1); Sodium 143 mmol/L (136-145); Total Protein 7.3 g/dL (5.7-8.2)
[2025-04-02 09:48] LABS: Ferritin 57 ng/mL (7-271)
[2025-04-02 10:13] LABS: Iron 110 ug/dL (50-170); Total Iron Binding Capacity 340 ug/dL (250-425); Transferrin Sat 32 % (15-50)
== END 2025-04-02 03:36 | disposition home or self-care (01) ==
LOC: LBO 03:35
PROVIDERS: PCP Nurse Practitioner Family; Visit Provider Internal Medicine Hematology & Oncology
DX: D47.3 Essential (hemorrhagic) thrombocythemia (principal); D50.9 Iron deficiency anemia, unspecified
CPT/HCPCS: 36415; 80053; 82728; 83540; 83550; 85025

== ENCOUNTER 2025-04-07 14:16 | Outpatient (REF) | payer MEDICARE, SELFPAY ==
[2025-04-07 18:32] LABS: Creatinine,Urine 140.4 mg/dL
[2025-04-07 18:39] LABS: Creatinine,24hr Ur 0.98 g/24hr (0.60-1.80); Total Volume 700 ml
[2025-04-09 09:38] LABS: Calcium Urine 40.7 mg/dL (See Note); Timed Urine Volume 700 mL
== END 2025-04-07 14:17 | disposition home or self-care (01) ==
LOC: LBN 14:16
PROVIDERS: PCP Nurse Practitioner Family; Visit Provider Student in an Organized Health Care Education/Training Program
DX: M81.0 Age-related osteoporosis without current pathological fracture (principal)
CPT/HCPCS: 81050; 82340; 82570